=== PATIENT | male | born 1950 | race Caucasian/White ===

== ENCOUNTER 2024-03-13 14:49 | Inpatient (IN) | payer MEDICARE, OTHER, SELFPAY ==
[2024-03-13 13:10] VITALS: BP 132/96
[2024-03-13 13:11] VITALS: BP 132/96
[2024-03-13] MEDS: NSS 1000 IV ×2 (13:34→17:30)
[2024-03-13] MEDS: TYLENOL 650 MG PO (13:41)
[2024-03-13 13:42] LABS: % Basophils 0.3 % (0-2); % Eosinophils 0.6 % (0-6); % Immature Granulocytes 0.5 % (0-0.5); % Lymphocytes 7.1 % (20.5-51.1); % Monocytes 6.1 % (1.7-9.3); % Neutrophils 85.4 % (42.2-75.2); Absolute Basophils 0.1 10^3/uL (0-0.2); Absolute Eosinophils 0.1 10^3/uL (0-0.7); Absolute Immature Granulocytes 0.1 10^3/uL (0-0.05); Absolute Lymphocytes 1.2 10^3/uL (1.2-3.4); Absolute Monocytes 1.1 10^3/uL (0.1-0.6); Absolute Neutrophils 14.7 10^3/uL (1.4-6.5); Hematocrit 37.7 % (39.0-52.0); Hemoglobin 12.2 g/dL (13.0-18.0); Mean Corp Hgb Conc. 32.4 g/dL (33.0-37.0); Mean Corpuscular Hgb 26.7 pg (27.0-31.0); Mean Corpuscular Volume 82.5 fL (80.0-94.0); Mean Platelet Volume 9.5 fL (7.4-10.4); Nucleated Red Blood Cells % 0 % (-); Platelet Count 366 10^3/uL (130-400); Red Blood Cell Count 4.57 10^6/uL (4.70-6.10); Red Cell Dist. Width 15.2 % (11.5-14.5); White Blood Cell Count 17.2 10^3/uL (4.8-10.8)
[2024-03-13] MEDS: MAXIPIME 2000 MG IV (13:43)
[2024-03-13 13:54] LABS: INR 1.37; PT 16.7 Sec (11.4-14.6)
[2024-03-13 14:04] VITALS: BP 127/64
[2024-03-13 14:05] LABS: Lactic Acid 1.4 mmol/L (0.7-2.0)
[2024-03-13 14:09] LABS: ALT (SGPT) 14 U/L (0-50); AST (SGOT) 21 U/L (17-59); Albumin 3.8 g/dl (3.5-5.0); Alkaline Phosphatase 147 U/L (38-126); Blood Urea Nitrogen 22 mg/dl (9-20); Calcium 8.9 mg/dl (8.4-10.2); Carbon Dioxide 25 mmol/L (22-30); Chloride 100 mmol/L (98-107); Estimated Creatinine Clearance 83 ml/min; Glucose 115 mg/dl (70-99); Potassium 4.3 mmol/L (3.5-5.1); Sodium 137 mmol/L (135-145); Total Bilirubin 0.6 mg/dl (0.2-1.3); Total Protein 8.2 g/dl (6.3-8.2); eGFR > 60.00
--- NOTE | 2024-03-13 14:16 | ED.GENMED ---
History of Present Illness
General
Chief Complaint: Skin Problem
Time Seen by Provider: 03/13/24 13:18
History of Present Illness
History of Present Illness:
73-year-old male presents to the emergency department for evaluation of redness and discomfort to the left thigh for the past 2 days. Denies any traumatic injuries. Has known history of MRSA and complicated cellulitis of the left lower extremity.
Noted to be febrile on arrival. Denies any chest pain or shortness of breath
Past History
Past History
ED Past Medical History: Arrthythmia (afib on Eliquis), HTN and Other (neuropathy, Upper GI bleed, chronic LE edema)
ED Past Surgical History: Orthopedic (Bilateral knee replacements) and Other (gi bleed/operation )
Social History
Tobacco: Smoker
Personal: Single
Living: alone
Review of Systems
Review of Systems
Allergies reviewed?: Yes
All Other Systems: ROS reviewed and negative except as documented in HPI and ROS
Phy Exam
Physical Exam
Physical Exam:
GEN: Well appearing, NAD, WDWN
Eyes: PERRLA, EOMs intact, no scleral icterus
HENT: NCAT, oral mucosa moist
Lungs: CTAB, no wheezes, rales, rhonchi, normal chest wall excursion
Cardiac: RRR, no M/R/G, no peripheral edema. Radial pulses 2+ bilat
Neuro: AO x 3
MSK: No gross deformity or ecchymosis. No edema. No digital clubbing
Skin: Severe erythema and warmth to the left thigh, there is no pain with passive stretch of the left quad for passive flexion of the left knee, no knee joint effusion
Psych: Calm, cooperative, proper hygiene
Sepsis
Sepsis Screening
Sepsis Assessment: Sepsis
Sepsis Screen
Sepsis Screen: Sepsis
Date: 03/13/24
Time: 18:50
Course
Orders/Labs/Results
Orders:
Orders
03/13/24 13:23
Acetaminophen [Tylenol] 650 mg PO NOW STA
Cefepime HCl [Maxipime] 2,000 mg IV NOW STA
03/13/24 13:25
Electrocardiogram (*1) Urgent
Reason for Study: QTc Monitoring
EKG- Treatment ONCE
0.9% Sodium Chloride 1000 ml [Nss] 1,000 ml IV BOLUS
03/13/24 13:29
Complete Blood Count/With Diff Urgent
Comprehensive Metabolic Panel Urgent
Lactic Acid Q4H
Comment: CANCEL 2nd LACTIC ACID IF 1st LACTIC ACID IS LESS THAN 2
Prothrombin Time Urgent
Blood Culture Routine
CRISTÓBAL Source: Blood/Venous
Specimen Description:
Blood Culture Urgent
CRISTÓBAL Source: Blood/Venous
Specimen Description:
03/13/24 13:37
Sterile Water [Sterile Water For Injection] 10 ml .ROUTE .STK-MED ONE
03/13/24 14:35
Admit/Transfer Patient As Directed
Co-Sign Provider:
Level of Care: Inpatient admission
Assign to:: Medical/Surgical
Physician / Group: na
Diagnosis: cellulitis left thigh
Reason for Hospitalization: cellulitis left thigh
Expected length of stay greater than two midnights?: Yes
ELOS- Estimated Length of Stay in days: 2
I certify the patient meets the requirements for IP care: Yes
Code Status As Directed
Resuscitation Status: Do not resuscitate
Reached after discussion with pt or family/Healthcare POA: Yes
DNR Bracelet Application ONCE
PRN Pain Medication Management As Directed
May give lesser potent ordered pain med per pt: Yes
preference::
Protocol:: Medication orders for pain may be administered in a
manner that supports deferring to patient preference
when the pt is:
- Requesting an ordered lesser potent pain medication.
Least to most potent pain medications are defined
as: acetaminophen < NSAID < tramadol < opioids
(morphine, oxycodone, hydromorphone).
- Requesting a lesser dose of the same medication IF
ORDERED.
- Requesting a less intrusive route of administration
if both routes are prescribed by the provider (PO <
IV).
03/13/24 Dinner
Regular
At Your Request: Limited Participation
03/13/24 16:28
0.9% Sodium Chloride 1000 ml [Nss] 1,000 ml IV 100 mls/hr
Acetaminophen [Tylenol] 650 mg PO Q4HPRN PRN
03/13/24 16:28
WOUND/OSTOMY CONSULT Routine
Reason for Consult: left leg, toe
Activity As Directed
Activity Level: As Tolerated
Sequential Compression Device [Pneumatic Compression Sleeves] As Directed
Type: Knee high
Vital Signs As Directed
Frequency: Per unit guidelines
DX Deep Vein Thrombosis Video Routine
03/13/24 17:30
Lactic Acid Q4H
Comment: CANCEL 2nd LACTIC ACID IF 1st LACTIC ACID IS LESS THAN 2
03/13/24 20:00
Miconazole Nitrate [Antifungal Clear] See Dose Instructions TOPICAL BID
03/14/24 06:00
Complete Blood Count/With Diff IN AM
Comprehensive Metabolic Panel IN AM
Abnormal Lab Results
03/13/24
13:29
WBC 17.2 H 10^3/uL
(4.8-10.8)
RBC 4.57 L 10^6/uL
(4.70-6.10)
Hgb 12.2 L g/dL
(13.0-18.0)
Hct 37.7 L %
(39.0-52.0)
MCH 26.7 L pg
(27.0-31.0)
MCHC 32.4 L g/dL
(33.0-37.0)
RDW 15.2 H %
(11.5-14.5)
Abs Immat Gran (auto) 0.1 H 10^3/uL
(0-0.05)
Absolute Neuts (auto) 14.7 H 10^3/uL
(1.4-6.5)
Absolute Monos (auto) 1.1 H 10^3/uL
(0.1-0.6)
Neutrophils % 85.4 H %
(42.2-75.2)
Lymphocytes % 7.1 L %
(20.5-51.1)
PT 16.7 H Sec
(11.4-14.6)
BUN 22 H mg/dl
(9-20)
Glucose 115 H mg/dl
(70-99)
Alkaline Phosphatase 147 H U/L
(38-126)
03/13/24 13:29
03/13/24 13:29
Vital Signs
Initial and Last Documented VS:
Initial Vital Signs
BP
132/96
03/13/24 13:10
Last Documented Vital Signs
Temp Pulse Resp BP Pulse Ox
98 F 86 16 124/81 93
03/13/24 17:30 03/13/24 17:30 03/13/24 17:30 03/13/24 17:30 03/13/24 17:30
MDM/Problems Addressed
MDM/Problems Addressed:
Patient is anticoagulated thus do not see indication for ultrasound to evaluate for DVT. He is septic from lower extremity cellulitis thus will require admission for IV antibiotics
*Critical Care Note
Total Time (30-74mins, 75-104mins- exclusive of procedures): Not Applicable
ED Attending Note
-
Portions of this chart may have been created with voice recognition software.� Occasional wrong word or��sound alike� substitutions may have occurred due to the inherent limitations of voice recognition software.
Discharge Plan
Departure
Patient Disposition: Admit
Date of Disposition: 03/13/24
Time of Disposition: 14:20
Admit to: Med/Surg
Presentation/result/management discussed w/ accepting MD/DO: Hospitalist
Discharge Problem:
Cellulitis of left thigh, Sepsis
Interventions
Interventions:
*Risk Screen - Suicide Last Done: 03/13/24 13:17
*General Assessment Last Done: 03/13/24 13:17
*Neglect/Abuse Screening Last Done: 03/13/24 13:17
ED- Fall Risk Assessment Last Done: 03/13/24 13:23
*ED COVID-19 Vaccine History Last Done: 03/13/24 13:17
*Nursing Disposition Last Done: 03/13/24 16:27
ED-Skin Assessment Last Done: 03/13/24 16:26
Discharge Date and Time
Discharge Date/Time: 03/13/24 16:27
--- NOTE | 2024-03-13 14:42 | HPS.HSE ---
Family Physician
-
Family Physician: Anival Correia
Chief Complaint
-
left leg infection
History of Present Illness
73-year-old male past medical history of MRSA infection/complicated cellulitis of left lower extremity, atrial fibrillation on Eliquis, hypertension, neuropathy, upper GI bleeding, chronic lower extremity edema, presenting with redness and
discomfort of the left thigh for the past 2 days. He denies pain with area sensitive. He denies any injury but thinks that he had a dirty towel on his leg which may have contributed to the infection. He denies any chills. He denies any nausea
vomiting or diarrhea or chest pain or shortness of breath.
He had a prior MRSA infection of the left lower extremity was previously debrided.
He does have some redness in the space between his left big toe and second toe which was thought to been a fungal infection apparently getting better with dressing.
Denies smoking or alcohol use.
Medical History
Past Medical History
Past Medical History: Reports Other (MRSA infection/complicated cellulitis of left lower extremity, atrial fibrillation on Eliquis, hypertension, neuropathy, upper GI bleeding, chronic lower extremity edema)
Past Surgical History: Reports Other (Orthopedic (Bilateral knee replacements) and Other (gi bleed/operation ))
Social History
Tobacco: Non-smoker
Alcohol: None
Drug: None
Family History
Family History: Not pertinent
Allergies / Home Medications
Allergies reflects when Allergies were last updated in [employer].
Home Medications with original date entered in [employer]
Allergy/Medication List:
Allergies
Allergy/AdvReac Type Severity Reaction Status Date / Time
No Known Allergies Allergy Verified 11/19/22 12:59
Home Medications
escitalopram oxalate 20 mg tablet 20 mg PO DAILY Depression 11/14/14
apixaban 5 mg tablet (Eliquis) 5 mg PO BID Blood clot prevention/tx 06/28/21
acetaminophen 325 mg tablet 650 mg PO Q4H PRN mild pain/temp>100 09/15/22
docusate sodium 100 mg capsule 200 mg PO DAILY Constipation 09/15/22
gabapentin 800 mg tablet 800 mg PO TID Pain 09/15/22
oxycodone 15 mg tablet 15 mg PO DAILY severe pain 09/15/22
oxycodone 15 mg tablet 15 mg PO Q4H PRN severe pain 09/15/22
sennosides 8.6 mg tablet (senna) 2 tab PO DAILY Constipation 09/15/22
amoxicillin 500 mg capsule 500 mg PO TID Infection 11/19/22
clindamycin HCl 150 mg capsule 150 mg PO QID #30 caps 11/19/22
mineral oil-hydrophil petrolat topical ointment (Aquaphor topical ointment) 1 applic topical TID B/L lower legs 11/19/22
morphine 60 mg tablet,extended release 60 mg PO BID Pain 11/19/22
quetiapine 50 mg tablet 50 mg PO DAILY Mental Health/Anxiety 11/19/22
Review of Systems
-
History Source: Patient
A 12 point ROS was completed and negative except as noted: Yes
Constitutional: Reports No Symptoms
EENT: Reports No Symptoms
Respiratory: Reports No Symptoms
Cardiac: Reports No Symptoms
Abdomen/GI: Reports No Symptoms
: Reports No Symptoms
Musculoskeletal: Reports No Symptoms
Skin: Reports See HPI and Other
Neurological: Reports No Symptoms
Endocrine: Reports No Symptoms
Hematologic/Lymphatic: Reports No Symptoms
Psych: Reports No Symptoms
Physical Exam
Vital Signs
Vital Signs
Temp Pulse Resp BP Pulse Ox
100.9 F H 79 26 127/64 98
03/13/24 13:11 03/13/24 14:04 03/13/24 13:15 03/13/24 14:04 03/13/24 13:15
Physical Exam
General: Well Developed, Well Nourished and No Apparent Distress
HEENT: NormoCephalic, Moist mucous membranes and Atraumatic
Respiratory: Clear
Cardiac: S1/S2 and Regular Rhythm; No Murmur or Rub
GI: Soft, Non Tender, Non Distended and Normal Bowel Sounds; No Organomegaly
Rectal: Deferred by Provider
Musculoskeletal: No Clubbing, No Cyanosis and No Edema
Skin: Other (left thigh erythema ); No Rash
Neuro: Nonfocal/grossly intact
Laboratory Results
-
03/13/24 13:29
03/13/24 13:29
Laboratory Results
PT 16.7 Sec (11.4-14.6) H 03/13/24 13:29
INR 1.37 03/13/24 13:29
Lactic Acid 1.4 mmol/L (0.7-2.0) 03/13/24 13:
Total Bilirubin 0.6 mg/dl (0.2-1.3) 03/13/24 13:29
AST 21 U/L (17-59) 03/13/24 13:29
ALT 14 U/L (0-50) 03/13/24 13:29
Alkaline Phosphatase 147 U/L (38-126) H 03/13/24 13:29
Data Reviewed
-
Lab Data: Labs Reviewed by me
Old Records: Reviewed
Impression/Plan
-
IMPRESSION:
PLAN:
# Sepsis (fever, leukocytosis, tachypnea) secondary to left lower extremity cellulitis
# History of MRSA cellulitis of left lower extremity
-Blood cultures
-IV fluids
-Vancomycin
# Chronic left lower extremity wound with history of prior debridement
-Appears baseline as per patient
-Wound care consulted
# Fungal infection between first and second toes left foot
-Likely fungal
-Topical miconazole
Permanent atrial fibrillation
-Patient in A-fib currently
-Continue Eliquis
Essential hypertension
Chronic pain syndrome
-Continue gabapentin, Profen, oxycodone,
Anxiety/depression
-Continue Seroquel, Lexapro
Chronic lower extremity wounds
History of GI bleeding
DNR/DNI
DVT prophylaxis�Eliquis
Regular diet
[2024-03-13 16:00] VITALS: BP 115/72
[2024-03-13 17:30] VITALS: BP 124/81
[2024-03-13] MEDS: VANCOCIN 540 MG IV (17:30)
--- NOTE | 2024-03-13 17:46 | PHA.VAN.IN ---
Assessment
- Assessment
Renal Function: Appears elevated from baseline (11/19/22 BASELINE SCR: 0.7)
Concomitant Antimicrobials: NONE
- Previous Dosing Experience
Previous Regimen: 1250MG IV Q12H
Date of Regimen: 09/16/22
Provided Trough of: 12.7 PREDICTED
Provided AUC of: 490 PREDICTED
Patient's SCR is: Elevated compared to previous dosing experience (09/16/22 SCR = 0.8)
Patient's weight is: Elevated compared to previous dosing experience (09/16/22 WT = 94.4 KG)
AUC Dosing Plan
- Dosing Variables
Dosing Weight (kg): 103
Dosing CrCl (ml/min): 83
Vd coefficient (L/kg): 0.6
- Empiric Dosing
Initial / Loading Dose: 2GM
Maintenance Regimen: 1250MG IV Q12H
Estimated AUC (mcg*h/mL): 582
Estimated Peak (mcg*h/mL): 34.6
Estimated Trough (mcg/ml): 16
Estimated Half Life (H): 9.5
Pharmacokinetics Vancomycin I
- -
Patient Age: 73
Patient Sex: Male
Vancomycin Day #: 1
Indication: Skin And Soft Tissue (SEPSIS)
Requesting Provider: BHAVYA
Height / Weight:
Height 6 ft 1 in
Actual Weight 103 kg
- Vital Signs / Lab Results
Temp Pulse Resp BP Pulse Ox
100.9 F H 80 26 115/72 98
03/13/24 13:11 03/13/24 16:00 03/13/24 13:15 03/13/24 16:00 03/13/24 13:15
Lab Results - Hematology
03/13/24
13:29
WBC 17.2 H
Lab Results - Chemistry
03/13/24
13:29
BUN 22 H
Creatinine 0.9
Estimated Creat Clear 83
Albumin 3.8
03/13/24
13:29
Lactic Acid 1.4
[2024-03-13 18:34] VITALS: BMI 30.6
[2024-03-13] MEDS: NEURONTIN 800 MG PO (20:20)
[2024-03-13] MEDS: DESYREL 25 MG PO (20:21)
[2024-03-13] MEDS: ELIQUIS 5 MG PO (20:21)
[2024-03-13] MEDS: MS CONTIN (EXTENDED RELEASE) 30 MG PO (20:22)
[2024-03-13] MEDS: ANTIFUNGAL CLEAR 1 APPLIC TOPICAL (20:23)
[2024-03-13 23:11] VITALS: BP 115/70
[2024-03-14] MEDS: NSS 1000 IV (04:18)
[2024-03-14] MEDS: VANCOCIN 275 MG IV (05:12)
[2024-03-14 07:10] VITALS: BP 124/73
[2024-03-14 07:46] LABS: % Basophils 0.2 % (0-2); % Eosinophils 1.6 % (0-6); % Immature Granulocytes 0.5 % (0-0.5); % Lymphocytes 10.7 % (20.5-51.1); % Monocytes 9.9 % (1.7-9.3); % Neutrophils 77.1 % (42.2-75.2); Absolute Eosinophils 0.2 10^3/uL (0-0.7); Absolute Immature Granulocytes 0.1 10^3/uL (0-0.05); Absolute Lymphocytes 1.4 10^3/uL (1.2-3.4); Absolute Monocytes 1.3 10^3/uL (0.1-0.6); Absolute Neutrophils 9.8 10^3/uL (1.4-6.5); Hematocrit 34.1 % (39.0-52.0); Hemoglobin 10.8 g/dL (13.0-18.0); Mean Corp Hgb Conc. 31.7 g/dL (33.0-37.0); Mean Corpuscular Hgb 26.3 pg (27.0-31.0); Mean Corpuscular Volume 83.2 fL (80.0-94.0); Mean Platelet Volume 9.6 fL (7.4-10.4); Nucleated Red Blood Cells % 0 % (-); Platelet Count 308 10^3/uL (130-400); Red Cell Dist. Width 15.1 % (11.5-14.5); White Blood Cell Count 12.7 10^3/uL (4.8-10.8)
[2024-03-14 08:18] LABS: ALT (SGPT) 15 U/L (0-50); AST (SGOT) 24 U/L (17-59); Albumin 2.9 g/dl (3.5-5.0); Alkaline Phosphatase 121 U/L (38-126); Blood Urea Nitrogen 16 mg/dl (9-20); Calcium 8.5 mg/dl (8.4-10.2); Carbon Dioxide 24 mmol/L (22-30); Chloride 105 mmol/L (98-107); Estimated Creatinine Clearance 93 ml/min; Glucose 107 mg/dl (70-99); Potassium 4.5 mmol/L (3.5-5.1); Sodium 139 mmol/L (135-145); Total Bilirubin 0.2 mg/dl (0.2-1.3); Total Protein 6.5 g/dl (6.3-8.2); eGFR > 60.00
[2024-03-14] MEDS: ANTIFUNGAL CLEAR TOPICAL (09:00)
[2024-03-14] MEDS: LEXAPRO 20 MG PO (09:20)
[2024-03-14] MEDS: ELIQUIS 5 MG PO ×2 (09:20→20:06)
[2024-03-14] MEDS: MS CONTIN (EXTENDED RELEASE) 30 MG PO ×2 (09:21→20:06)
[2024-03-14] MEDS: NEURONTIN 800 MG PO ×3 (09:21→20:07)
[2024-03-14] MEDS: ROXICODONE 10 MG PO (09:21)
--- NOTE | 2024-03-14 09:54 | W.PN.HOSP.TC ---
Today's Communication/Plan
-
see outlined plan
Assessment / Plan
Assessment / Plan
Assessment:
Sepsis POA (fever, leukocytosis)
L thigh cellulitis, severe
- reported hx of MRSA, although patient denies, no prior MRSA cultures from wounds/leg (noted MSSA)
- follow cultures, MRSA swab
- continue Vancomycin, requires intensive monitoring of levels
- add Ancef
- ID consulted
- s/p sepsis protocol IVF, cap further IVF
Chronic left lower extremity wounds with history of prior debridement - all present on arrival
- wound care service consulted
Fungal infection between first and second toes left foot
- Likely fungal
- Topical miconazole continues
Permanent atrial fibrillation
- Patient in A-fib currently
- Continue Eliquis
Essential hypertension by history
- normotensive here, will monitor. Patient not on any meds
Chronic pain syndrome
- continue gabapentin, Profen, oxycodone
Anxiety/depression
- continue Seroquel, Lexapro
History of GI bleeding
DVT ppx: Eliquis
Code: DNR/DNI
Anticipated Discharge: > 48 hours
Subjective/Interval History
-
Date of Service: March 14, 2024
admitted for L thigh Cellulitis
reports some discomfort, swelling. No fever/chills
Objective Data
-
Labs:
Laboratory Results
03/14/24
06:49
WBC 12.7 H
Hgb 10.8 L
Hct 34.1 L
Plt Count 308
Sodium 139
Potassium 4.5
Chloride 105
Carbon Dioxide 24
BUN 16
Creatinine 0.9
Glucose 107 H
Calcium 8.5
Total Bilirubin 0.2
AST 24
ALT 15
Alkaline Phosphatase 121
Vital Signs:
Vital Signs
Temp Pulse Resp BP Pulse Ox
98.7 F 70 20 124/73 98
03/14/24 07:10 03/14/24 07:10 03/14/24 07:10 03/14/24 07:10 03/14/24 07:10
I&O
03/13/24 03/14/24 03/15/24
06:59 06:59 06:59
Intake Total 1924
Output Total 150 / 150
Balance 1774
Physical Exam
-
General: No Apparent Distress and Appears Chronically Ill
HEENT: Normocephalic and Atraumatic
Respiratory: Negative Wheezes
Cardiac: Regular Rhythm and S1/S2
GI: Soft
Genito-urinary: No Costovertebral Tender
Musculoskeletal: Other (L thigh cellulitis with edema, confluent from just below groin to knee, medial and lateral thigh, no crusting)
Neuro: AO x 3
Hematologic / Lymphatic: No Lymphadenopathy
Psych: Calm
Data Reviewed
-
Total Time Spent with Patient (in minutes): 51
Labs: Labs Reviewed by me
--- NOTE | 2024-03-14 10:14 | PHA.VAN.FU ---
Vancomycin Assessment / Plan
- Assessment
Renal Function: Stable
WBC's are: Trending Down
Concomitant Antimicrobials: cefazolin
- Dosing Plan
Continue: Vanc 1250mg Q12H
- Monitoring Plan
No level(s) ordered at this time: consider levels in next few days
- Follow Up
Pharmacy will continue to follow.
Vancomycin Follow UP
- -
Patient Age: 73
Patient Sex: Male
Vancomycin Day #: 2
Indication: Skin And Soft Tissue
Requesting Provider: Dr. Stafford
Pertinent Antimicrobial Allergies:
NKDA
Height / Weight:
Height 6 ft 1 in
Actual Weight 105.233 kg
Pertinent Past Medical History: BMI ~30
- Vital Signs / Lab Results
Temp Pulse Resp BP Pulse Ox
98.7 F 70 20 124/73 98
03/14/24 07:10 03/14/24 07:10 03/14/24 07:10 03/14/24 07:10 03/14/24 07:10
Lab Results - Hematology
03/13/24 03/14/24
13:29 06:49
WBC 17.2 H 12.7 H
Lab Results - Chemistry
03/13/24 03/14/24
13:29 06:49
BUN 22 H 16
Creatinine 0.9 0.9
Estimated Creat Clear 83 93
Albumin 3.8 2.9 L
03/13/24 03/13/24
13:29 17:30
Lactic Acid 1.4 Cancelled
--- NOTE | 2024-03-14 10:39 | WOUNDNOTE ---
L LATERAL POSTERIOR LOWER LEG
--- NOTE | 2024-03-14 10:41 | WOUNDNOTE ---
L TOES AND ANTERIOR ANKLE
--- NOTE | 2024-03-14 10:41 | WOUNDNOTE ---
Ananth DEL ROSARIO
--- NOTE | 2024-03-14 10:44 | WOUNDNOTE ---
L THIGH AND KNEES
--- NOTE | 2024-03-14 10:45 | WOUNDNOTE ---
WON RN note: Patient admitted with cellulitis of L thigh/sepsis.
See H&P for complete history. Currently at [facility].
PMH: venous ulcers on legs, smoker, HTN,A Fib, spinal stenosis, neuropathy in hands, laminectomy, b/l knee replacements with R knee revision 2014, went to [facility] for non healing leg wound. Last [facility] visit with Dr. Alves 04/25/21. Has not been
back to [facility] since last visit.
Wound Location and type/assessment: Patient known to service, last seen 06/30/21 for venous leg ulcers and dry eschar on toes. L Leg with healing venous ulcer, B/L great toe intact dry scabs. R knee with intact scab abrasion. L dorsal 2nd toe
blanchable pink, previous admission had thin dry eschar there, now healed. Does not appear to be fungal related, fungal cream already on order. Assessed patient along with Dr. Doherty. L upper thigh with blotchy redness and warmth. Heels are intact, +
palpable pedal pulses and skin very dry. L dorsal foot red maroon ning suspect abrasion. Patient turned self to side, sacrum intact, scarring visible from past healed ulcers. Patient confirmed he has a cushion for wheelchair.
Appetite: Good.
Pressure redistribution devices in place: On [employer], able to turn self, encouraged turning to patient, currently on L semi side lying position. Pillow under calves.
Plan: Applied Vaseline ointment to legs and feet, skin prep to scabs on toes. Will discontinue fungal cream and order mineral oil to start tomorrow. Local wound care to L posterior leg, will order Vashe wtd and knee high Abhay wrap. Padded red ning on
dorsal ankle with ABD pad under abhay. leg elevation when oob. Wound care and compression approved by Dr. Doherty. Updated nurse Rola and care plan, will follow as needed.
Note to case management of equipment requested for discharge: VN for wound care.
Recommend follow up at wound care center upon discharge.
--- NOTE | 2024-03-14 10:46 | WOUNDNOTE ---
WON RN note: Patient admitted with cellulitis of L thigh/sepsis.
See H&P for complete history. Currently at [facility].
PMH: venous ulcers on legs, smoker, HTN,A Fib, spinal stenosis, neuropathy in hands, laminectomy, b/l knee replacements with R knee revision 2014, went to [facility] for non healing leg wound. Last [facility] visit with Dr. Alves 04/25/21. Has not been
back to [facility] since last visit.
Wound Location and type/assessment: Patient known to service, last seen 06/30/21 for venous leg ulcers and dry eschar on toes. L Leg with healing venous ulcer, B/L great toe intact dry scabs. R knee with intact scab abrasion. L dorsal 2nd toe
blanchable pink, previous admission had thin dry eschar there, now healed. Does not appear to be fungal related, fungal cream already on order. Assessed patient along with Dr. Doherty. L upper thigh with blotchy redness and warmth. Heels are intact, +
palpable pedal pulses and skin very dry. L dorsal foot red maroon ning suspect abrasion. Patient turned self to side, sacrum intact, scarring visible from past healed ulcers. Patient confirmed he has a cushion for wheelchair.
Appetite: Good.
Pressure redistribution devices in place: On [facility] air, able to turn self, encouraged turning to patient, currently on L semi side lying position. Pillow under calves.
Plan: Applied Vaseline ointment to legs and feet, skin prep to scabs on toes. Will discontinue fungal cream and order mineral oil to start tomorrow. Local wound care to L posterior leg, will order Vashe wtd and knee high Abhay wrap. Padded red ning on
dorsal ankle with ABD pad under abhay. leg elevation when oob. Wound care and compression approved by Dr. Doherty. Updated nurse Rola and care plan, will follow as needed.
Note to case management of equipment requested for discharge: VN for wound care.
Recommend follow up at wound care center upon discharge.
--- NOTE | 2024-03-14 11:56 | CM ---
Patient seen bedside, initial assessment completed. Patient LTC resident at [facility], reports he uses a wheelchair or walker for ambulation. Patient reports he does receive therapy at facility. Patient confirms PCP Anival Correia, pharmacy
[facility]. CM spoke with Elisa from Admissions at [facility], confirmed patient is LTC resident on an MA bed hold.
Plan; return to [facility] when stable.
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
[2024-03-14] MEDS: ANCEF 5 IV (12:10)
[2024-03-14 15:37] VITALS: BP 105/62
[2024-03-14] MEDS: ANCEF 10 IV (20:06)
[2024-03-14] MEDS: DESYREL 25 MG PO (20:07)
[2024-03-14] MEDS: ZOFRAN 4 MG IV (20:53)
[2024-03-14 23:33] VITALS: BP 137/91
[2024-03-15] MEDS: ANCEF 10 IV ×3 (02:59→19:43)
[2024-03-15] MEDS: ZOFRAN 4 MG IV (03:31)
[2024-03-15 04:05] LABS: % Basophils 0.5 % (0-2); % Eosinophils 4.6 % (0-6); % Lymphocytes 18.4 % (20.5-51.1); % Monocytes 12.8 % (1.7-9.3); % Neutrophils 62.7 % (42.2-75.2); Absolute Eosinophils 0.4 10^3/uL (0-0.7); Absolute Immature Granulocytes 0.1 10^3/uL (0-0.05); Absolute Lymphocytes 1.5 10^3/uL (1.2-3.4); Absolute Monocytes 1.1 10^3/uL (0.1-0.6); Absolute Neutrophils 5.2 10^3/uL (1.4-6.5); Hematocrit 33.6 % (39.0-52.0); Hemoglobin 10.8 g/dL (13.0-18.0); Mean Corp Hgb Conc. 32.1 g/dL (33.0-37.0); Mean Corpuscular Hgb 26.3 pg (27.0-31.0); Mean Platelet Volume 9.6 fL (7.4-10.4); Nucleated Red Blood Cells % 0 % (-); Platelet Count 348 10^3/uL (130-400); Red Cell Dist. Width 15.1 % (11.5-14.5); White Blood Cell Count 8.3 10^3/uL (4.8-10.8)
[2024-03-15 04:13] LABS: Blood Urea Nitrogen 19 mg/dl (9-20); Calcium 8.8 mg/dl (8.4-10.2); Carbon Dioxide 23 mmol/L (22-30); Chloride 109 mmol/L (98-107); Estimated Creatinine Clearance 120 ml/min; Glucose 118 mg/dl (70-99); Potassium 4.7 mmol/L (3.5-5.1); Sodium 143 mmol/L (135-145); eGFR > 60.00
[2024-03-15 07:10] VITALS: BP 148/80
--- NOTE | 2024-03-15 08:34 | W.PN.HOSP.TC ---
Today's Communication/Plan
-
continue IV Ancef; follow ID recs
Assessment / Plan
Assessment / Plan
Assessment:
Sepsis POA (fever, leukocytosis)
L thigh cellulitis, severe
- reported hx of MRSA, although patient denies, no prior MRSA cultures from wounds/leg (noted MSSA)
- MRSA negative
- BCX NGTD
- ID following; continue Ancef
Chronic left lower extremity wounds with history of prior debridement - all present on arrival
- L Leg with healing venous ulcer, B/L great toe intact dry scabs. R knee with intact scab abrasion. L dorsal 2nd toe blanchable pink. L dorsal foot red maroon ning suspect abrasion
- wound care service following
Fungal infection between first and second toes left foot
- Likely fungal
- Topical miconazole continues
Permanent atrial fibrillation
- Patient in A-fib currently
- Continue Eliquis
Essential hypertension by history
- normotensive here, will monitor. Patient not on any meds
Chronic pain syndrome
- continue gabapentin, Profen, oxycodone
Anxiety/depression
- continue Seroquel, Lexapro
History of GI bleeding
DVT ppx: Eliquis
Code: DNR/DNI
Anticipated Discharge: 24 - 48 hours
Subjective/Interval History
-
Date of Service: March 15, 2024
no complaints
reports less pain, swelling to L thigh and he feels redness improving
Objective Data
-
Labs:
Laboratory Results
03/15/24
03:31
WBC 8.3
Hgb 10.8 L
Hct 33.6 L
Plt Count 348
Sodium 143
Potassium 4.7
Chloride 109 H
Carbon Dioxide 23
BUN 19
Creatinine 0.7
Glucose 118 H
Calcium 8.8
Vital Signs:
Vital Signs
Temp Pulse Resp BP Pulse Ox
97.4 F 67 18 148/80 93
03/15/24 07:10 03/15/24 07:10 03/15/24 07:10 03/15/24 07:10 03/15/24 07:10
I&O
03/14/24 03/15/24 03/16/24
06:59 06:59 06:59
Intake Total 5 / 1924 840 / 840
Output Total 150 / 150 1150 / 1150
Balance 1775 / 1775 -310 / -310
Physical Exam
-
General: No Apparent Distress
HEENT: Normocephalic and Atraumatic
Respiratory: Negative Wheezes
Cardiac: Regular Rhythm and S1/S2
GI: Soft
Musculoskeletal: Other (Left thigh with erythema irregular border from distal thigh extending up to hip, mildy warm. bilateral LE venous insufficiency)
Neuro: AO x 3
Hematologic / Lymphatic: No Lymphadenopathy
Psych: Calm
Data Reviewed
-
Total Time Spent with Patient (in minutes): 41
Labs: Labs Reviewed by me
[2024-03-15] MEDS: NEURONTIN 800 MG PO ×3 (10:07→19:44)
[2024-03-15] MEDS: ROXICODONE 10 MG PO ×2 (10:08→18:07)
[2024-03-15] MEDS: LEXAPRO 20 MG PO (10:08)
[2024-03-15] MEDS: MS CONTIN (EXTENDED RELEASE) 30 MG PO ×2 (10:08→19:43)
[2024-03-15] MEDS: ELIQUIS 5 MG PO ×2 (10:08→19:43)
--- NOTE | 2024-03-15 11:54 | CM ---
CM reviewed chart, met with patient bedside. Patient reports no needs at this time, reports he is eager to discharge from Hospital. CM will continue to follow for all discharge planning needs.
Plan; return to [facility] when stable
[facility]
Report: [phone]
--- NOTE | 2024-03-15 14:15 | W.PN.ID1 ---
Date of Service
Date of Service: March 15, 2024
Today's Communication
Continue cefazolin.
Assessment / Plan
# Acute left thigh cellulitis
-Continue cefazolin dose to 2g IV q8 (d2)
# Fever/leukocytosis due to cellulitis, resolved
- Bcx's NGTD
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
Hypertension
Neuropathy
Atrial fibrillation
History of upper GI bleed
Venous stasis
Hx LLE wounds
Spinal stenosis
Chronic pain
Anxiety/depression
History of MSSA left leg wound infection
History of MSSA left olecranon bursitis (2009) s/p I+D
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
L TKA
Chief Complaint
-: Cellulitis
Subjective / Review of Systems
He thinks thigh is better.
Vital Signs / Physical Exam
Vital Signs
Vital Signs
Temp Pulse Resp BP Pulse Ox
97.4 F 67 18 148/80 93
03/15/24 07:10 03/15/24 07:10 03/15/24 07:10 03/15/24 07:10 03/15/24 07:10
Physical Exam
Constitutional: No Acute Distress
Extremities: Erythema (Left thigh to hip erythema receding)
Objective Data
Lab Data
Lab Results
03/15/24 03:31
03/15/24 03:31
PT 16.7 Sec (11.4-14.6) H 03/13/24 13:29
INR 1.37 03/13/24 13:29
Estimated Creat Clear 120 ml/min 03/15/24 03:31
Lactic Acid Cancelled 03/13/24 17:30
Total Bilirubin 0.2 mg/dl (0.2-1.3) 03/14/24 06:49
AST 24 U/L (17-59) 03/14/24 06:49
ALT 15 U/L (0-50) 03/14/24 06:49
Alkaline Phosphatase 121 U/L (38-126) 03/14/24 06:49
Most recent labs reviewed.
Micro Results:
03/13/24 13:29 Blood Culture - Preliminary
Blood/Venous No Growth in 48 hours- Final report to follow
03/13/24 13:29 Blood Culture - Preliminary
Blood/Venous No Growth in 48 hours- Final report to follow
03/13/24 19:22 MRSA Screen - Final
Nose No Methicillin Resistant Staphylococcus aureus isolated.
[2024-03-15 15:28] VITALS: BP 115/76
[2024-03-15] MEDS: HYDROPHOR 1 APPLIC TOPICAL (17:25)
[2024-03-15] MEDS: DESYREL 25 MG PO (19:43)
[2024-03-15] MEDS: TYLENOL 650 MG PO (21:40)
[2024-03-15 22:53] VITALS: BP 115/74
[2024-03-16] MEDS: ANCEF 10 IV ×3 (03:00→20:40)
[2024-03-16 07:51] LABS: % Immature Granulocytes 1.4 % (0-0.5); % Lymphocytes 21.9 % (20.5-51.1); % Neutrophils 54.7 % (42.2-75.2); Absolute Basophils 0.1 10^3/uL (0-0.2); Absolute Eosinophils 0.6 10^3/uL (0-0.7); Absolute Immature Granulocytes 0.1 10^3/uL (0-0.05); Absolute Lymphocytes 1.6 10^3/uL (1.2-3.4); Hematocrit 34.9 % (39.0-52.0); Hemoglobin 10.9 g/dL (13.0-18.0); Mean Corp Hgb Conc. 31.2 g/dL (33.0-37.0); Mean Corpuscular Hgb 26.8 pg (27.0-31.0); Mean Corpuscular Volume 85.7 fL (80.0-94.0); Mean Platelet Volume 9.5 fL (7.4-10.4); Nucleated Red Blood Cells % 0 % (-); Platelet Count 319 10^3/uL (130-400); Red Blood Cell Count 4.07 10^6/uL (4.70-6.10); Red Cell Dist. Width 15.2 % (11.5-14.5); White Blood Cell Count 7.4 10^3/uL (4.8-10.8)
[2024-03-16 08:06] VITALS: BP 123/70
[2024-03-16 08:23] LABS: Blood Urea Nitrogen 21 mg/dl (9-20); Calcium 8.8 mg/dl (8.4-10.2); Carbon Dioxide 24 mmol/L (22-30); Chloride 106 mmol/L (98-107); Estimated Creatinine Clearance 105 ml/min; Glucose 100 mg/dl (70-99); Potassium 4.8 mmol/L (3.5-5.1); Sodium 140 mmol/L (135-145); eGFR > 60.00
[2024-03-16 08:25] VITALS: BMI 30.6
[2024-03-16] MEDS: MS CONTIN (EXTENDED RELEASE) 30 MG PO ×2 (08:25→20:41)
[2024-03-16] MEDS: ROXICODONE 10 MG PO ×2 (08:26→16:00)
[2024-03-16] MEDS: NEURONTIN 800 MG PO ×3 (08:26→20:51)
[2024-03-16] MEDS: ELIQUIS 5 MG PO ×2 (08:26→20:41)
[2024-03-16] MEDS: LEXAPRO 20 MG PO (08:26)
[2024-03-16] MEDS: HYDROPHOR 1 APPLIC TOPICAL (08:28)
--- NOTE | 2024-03-16 12:48 | W.PN.HOSP.TC ---
Today's Communication/Plan
-
continue IV Ancef, follow ID recs. Likely DC in 24 hours back to SNF on oral Abx.
Assessment / Plan
Assessment / Plan
Assessment:
Sepsis POA (fever, leukocytosis)
L thigh cellulitis, severe
- reported hx of MRSA, although patient denies, no prior MRSA cultures from wounds/leg (noted MSSA)
- MRSA negative
- BCX NGTD
- ID following; continue Ancef
Chronic left lower extremity wounds with history of prior debridement - all present on arrival
- L Leg with healing venous ulcer, B/L great toe intact dry scabs. R knee with intact scab abrasion. L dorsal 2nd toe blanchable pink. L dorsal foot red maroon ning suspect abrasion
- wound care service following
Fungal infection between first and second toes left foot
- Likely fungal
- Topical miconazole continues
Permanent atrial fibrillation
- Patient in A-fib currently
- Continue Eliquis
Essential hypertension by history
- normotensive here, will monitor. Patient not on any meds
Chronic pain syndrome
- continue gabapentin, Profen, oxycodone
Anxiety/depression
- continue Seroquel, Lexapro
History of GI bleeding
DVT ppx: Eliquis
Code: DNR/DNI
Anticipated Discharge: Within 24 hours
Subjective/Interval History
-
Date of Service: March 16, 2024
denies any new complaints
continues to feel improved, less pain/edema
Objective Data
-
Labs:
Laboratory Results
03/16/24
06:45
WBC 7.4
Hgb 10.9 L
Hct 34.9 L
Plt Count 319
Sodium 140
Potassium 4.8
Chloride 106
Carbon Dioxide 24
BUN 21 H
Creatinine 0.8
Glucose 100 H
Calcium 8.8
Vital Signs:
Vital Signs
Temp Pulse Resp BP Pulse Ox
97.4 F 55 16 123/70 94
03/16/24 08:06 03/16/24 08:06 03/16/24 08:06 03/16/24 08:06 03/16/24 08:06
I&O
03/15/24 03/16/24 03/17/24
06:59 06:59 06:59
Intake Total 840 / 840 1200 / 1200
Output Total 1150 / 1150 750 / 750
Balance -310 / -310 450 / 450
Physical Exam
-
General: No Apparent Distress
HEENT: Normocephalic and Atraumatic
Respiratory: Clear to Auscultation; Negative Wheezes
Cardiac: Regular Rhythm and S1/S2
GI: Soft
Musculoskeletal: Other (Left thigh with erythema (improving) irregular border from distal thigh extending up to hip, mildy warm. bilateral LE venous insufficiency)
Neuro: AO x 3
Hematologic / Lymphatic: No Lymphadenopathy
Psych: Calm
Data Reviewed
-
Total Time Spent with Patient (in minutes): 42
Labs: Labs Reviewed by me
--- NOTE | 2024-03-16 14:59 | CM ---
CM reviewed chart, per Hospitalist, likely discharge tomorrow. CM will send updates in [facility] to facility. CM will continue to be available for all discharge planning needs.
Plan; return to [facility]
Report: [phone]
--- NOTE | 2024-03-16 15:45 | W.PN.ID1 ---
Date of Service
Date of Service: March 16, 2024
Today's Communication
-Tomorrow, can transition to cephalexin 1000mg po q8h through 03/23/24.
Assessment / Plan
# Acute left thigh cellulitis, improving
-Continue cefazolin dose to 2g IV q8 (d3)
-Tomorrow, can transition to cephalexin 1000mg po q8h through 03/23/24.
# Fever/leukocytosis due to cellulitis, resolved
- Bcx's NGTD
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
Hypertension
Neuropathy
Atrial fibrillation
History of upper GI bleed
Venous stasis
Hx LLE wounds
Spinal stenosis
Chronic pain
Anxiety/depression
History of MSSA left leg wound infection
History of MSSA left olecranon bursitis (2009) s/p I+D
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
L TKA
Chief Complaint
-: Cellulitis
Subjective / Review of Systems
Feeling better.
Vital Signs / Physical Exam
Vital Signs
Vital Signs
Temp Pulse Resp BP Pulse Ox
97.4 F 55 16 123/70 99
03/16/24 08:06 03/16/24 08:06 03/16/24 08:06 03/16/24 08:06 03/16/24 08:25
Physical Exam
Constitutional: No Acute Distress and Comfortable
Extremities: Pulses (left thigh erythema decreasing in intensity and size)
Objective Data
Lab Data
Lab Results
03/16/24 06:45
03/16/24 06:45
PT 16.7 Sec (11.4-14.6) H 03/13/24 13:29
INR 1.37 03/13/24 13:29
Estimated Creat Clear 105 ml/min 03/16/24 06:45
Lactic Acid Cancelled 03/13/24 17:30
Total Bilirubin 0.2 mg/dl (0.2-1.3) 03/14/24 06:49
AST 24 U/L (17-59) 03/14/24 06:49
ALT 15 U/L (0-50) 03/14/24 06:49
Alkaline Phosphatase 121 U/L (38-126) 03/14/24 06:49
Most recent labs reviewed.
Micro Results:
03/13/24 13:29 Blood Culture - Preliminary
Blood/Venous No Growth in 72 hours- Final report to follow
03/13/24 13:29 Blood Culture - Preliminary
Blood/Venous No Growth in 72 hours- Final report to follow
03/13/24 19:22 MRSA Screen - Final
Nose No Methicillin Resistant Staphylococcus aureus isolated.
Care Review
Plan reviewed with: Physician (Dr. Doherty)
[2024-03-16 16:08] VITALS: BP 107/63
[2024-03-16] MEDS: DESYREL 25 MG PO (20:41)
[2024-03-16] MEDS: TYLENOL 650 MG PO (22:22)
[2024-03-16 23:20] VITALS: BP 120/75
[2024-03-17] MEDS: ANCEF 10 IV (03:21)
[2024-03-17 07:00] VITALS: BP 137/67
[2024-03-17 07:34] LABS: % Basophils 1.1 % (0-2); % Eosinophils 7.6 % (0-6); % Immature Granulocytes 2.8 % (0-0.5); % Lymphocytes 25.6 % (20.5-51.1); % Monocytes 12.3 % (1.7-9.3); % Neutrophils 50.6 % (42.2-75.2); Absolute Basophils 0.1 10^3/uL (0-0.2); Absolute Eosinophils 0.6 10^3/uL (0-0.7); Absolute Immature Granulocytes 0.2 10^3/uL (0-0.05); Absolute Lymphocytes 1.9 10^3/uL (1.2-3.4); Absolute Monocytes 0.9 10^3/uL (0.1-0.6); Absolute Neutrophils 3.8 10^3/uL (1.4-6.5); Hematocrit 34.8 % (39.0-52.0); Hemoglobin 11.1 g/dL (13.0-18.0); Mean Corp Hgb Conc. 31.9 g/dL (33.0-37.0); Mean Corpuscular Volume 84.7 fL (80.0-94.0); Mean Platelet Volume 9.7 fL (7.4-10.4); Nucleated Red Blood Cells % 0 % (-); Platelet Count 326 10^3/uL (130-400); Red Blood Cell Count 4.11 10^6/uL (4.70-6.10); Red Cell Dist. Width 15.2 % (11.5-14.5); White Blood Cell Count 7.5 10^3/uL (4.8-10.8)
[2024-03-17 08:11] LABS: Blood Urea Nitrogen 21 mg/dl (9-20); Calcium 8.5 mg/dl (8.4-10.2); Carbon Dioxide 25 mmol/L (22-30); Chloride 105 mmol/L (98-107); Estimated Creatinine Clearance 105 ml/min; Glucose 110 mg/dl (70-99); Potassium 4.8 mmol/L (3.5-5.1); Sodium 141 mmol/L (135-145); eGFR > 60.00
[2024-03-17] MEDS: LEXAPRO 20 MG PO (08:38)
[2024-03-17] MEDS: ELIQUIS 5 MG PO (08:38)
[2024-03-17] MEDS: MS CONTIN (EXTENDED RELEASE) 30 MG PO (08:38)
[2024-03-17] MEDS: ROXICODONE 10 MG PO ×2 (08:38→11:18)
[2024-03-17] MEDS: NEURONTIN 800 MG PO (08:38)
[2024-03-17] MEDS: HYDROPHOR 1 APPLIC TOPICAL (08:40)
--- NOTE | 2024-03-17 09:07 | W.PN.ID1 ---
Date of Service
Date of Service: March 17, 2024
Today's Communication
Transition to cephalexin 1000mg po q8h through 03/23/24.
Assessment / Plan
# Acute left thigh cellulitis, improving
-Transition cefazolin dose to 2g IV q8 (d4) to cephalexin 1000mg po q8h through 03/23/24.
# Fever/leukocytosis due to cellulitis, resolved
- Bcx's NGTD
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
Hypertension
Neuropathy
Atrial fibrillation
History of upper GI bleed
Venous stasis
Hx LLE wounds
Spinal stenosis
Chronic pain
Anxiety/depression
History of MSSA left leg wound infection
History of MSSA left olecranon bursitis (2009) s/p I+D
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
L TKA
Chief Complaint
-: Cellulitis
Subjective / Review of Systems
Feels well.
Vital Signs / Physical Exam
Vital Signs
Vital Signs
Temp Pulse Resp BP Pulse Ox
96.3 F L 60 16 137/67 97
03/17/24 07:00 03/17/24 07:00 03/17/24 07:00 03/17/24 07:00 03/17/24 07:00
Physical Exam
Constitutional: No Acute Distress and Comfortable
Extremities: Other (left thigh erythema improving)
Objective Data
Lab Data
Lab Results
03/17/24 06:42
03/17/24 06:42
PT 16.7 Sec (11.4-14.6) H 03/13/24 13:29
INR 1.37 03/13/24 13:29
Estimated Creat Clear 105 ml/min 03/17/24 06:42
Lactic Acid Cancelled 03/13/24 17:30
Total Bilirubin 0.2 mg/dl (0.2-1.3) 03/14/24 06:49
AST 24 U/L (17-59) 03/14/24 06:49
ALT 15 U/L (0-50) 03/14/24 06:49
Alkaline Phosphatase 121 U/L (38-126) 03/14/24 06:49
Most recent labs reviewed.
Micro Results:
03/13/24 13:29 Blood Culture - Preliminary
Blood/Venous No Growth in 72 hours- Final report to follow
03/13/24 13:29 Blood Culture - Preliminary
Blood/Venous No Growth in 72 hours- Final report to follow
03/13/24 19:22 MRSA Screen - Final
Nose No Methicillin Resistant Staphylococcus aureus isolated.
Care Review
Plan reviewed with: Physician (Dr. Shavon Doherty)
--- NOTE | 2024-03-17 09:37 | CM ---
Addendum entered by Elisa Rivera 03/17/24 10:59:
Patient does not qualify for ambulance, family preservation caseworker reached out to admissions at [facility] and their van will pick patient up at 12:30 today.
Original Note:
Chart reviewed and patient is cleared for discharge today, plan for patient to transfer back to [facility] home. Patient will go by ambulance.
[facility]
Report: [phone]
--- NOTE | 2024-03-17 10:18 | W.PN.HOSP.TC ---
Today's Communication/Plan
-
dc to SNF today
Assessment / Plan
Assessment / Plan
Assessment:
Sepsis POA (fever, leukocytosis)
L thigh cellulitis, severe
- reported hx of MRSA, although patient denies, no prior MRSA cultures from wounds/leg (noted MSSA)
- MRSA negative
- BCX NGTD
- ID following; transition to cephalexin 1000mg po q8h through 03/23/24.
Chronic left lower extremity wounds with history of prior debridement - all present on arrival
- L Leg with healing venous ulcer, B/L great toe intact dry scabs. R knee with intact scab abrasion. L dorsal 2nd toe blanchable pink. L dorsal foot red maroon ning suspect abrasion
- wound care service following
Fungal infection between first and second toes left foot
- Likely fungal
- Topical miconazole continues
Permanent atrial fibrillation
- Patient in A-fib currently
- Continue Eliquis
Essential hypertension by history
- normotensive here, will monitor. Patient not on any meds
Chronic pain syndrome
- continue gabapentin, Profen, oxycodone
Anxiety/depression
- continue Seroquel, Lexapro
History of GI bleeding
DVT ppx: Eliquis
Code: DNR/DNI
More than 30 minutes spent in discharge including
Final examination of the patient
Summarizing hospital stay
Instructions for continuing care to all relevant caregivers
Preparation of discharge records, prescriptions, and referral forms
Total time spent (in minutes):41
Anticipated Discharge: Today
Subjective/Interval History
-
Date of Service: March 17, 2024
no new complaints at present
Objective Data
-
Labs:
Laboratory Results
03/17/24
06:42
WBC 7.5
Hgb 11.1 L
Hct 34.8 L
Plt Count 326
Sodium 141
Potassium 4.8
Chloride 105
Carbon Dioxide 25
BUN 21 H
Creatinine 0.8
Glucose 110 H
Calcium 8.5
Vital Signs:
Vital Signs
Temp Pulse Resp BP Pulse Ox
97.4 F 60 16 137/67 96
03/17/24 10:15 03/17/24 07:00 03/17/24 07:00 03/17/24 07:00 03/17/24 09:00
I&O
03/16/24 03/17/24 03/18/24
06:59 06:59 06:59
Intake Total 1200 / 1200 690 / 690
Output Total 750 / 750 700 / 700
Balance 450 / 450 -10 / -10
Physical Exam
-
General: No Apparent Distress
HEENT: Normocephalic and Atraumatic
Respiratory: Clear to Auscultation; Negative Wheezes or Rales
Cardiac: Regular Rhythm and S1/S2
GI: Soft
Musculoskeletal: Other (Left thigh with erythema (improving) irregular border from distal thigh extending up to hip, mildy warm. bilateral LE venous insufficiency)
Neuro: AO x 3
Hematologic / Lymphatic: No Lymphadenopathy
Psych: Calm
Data Reviewed
-
Total Time Spent with Patient (in minutes): 41
Labs: Labs Reviewed by me
--- NOTE | 2024-03-17 10:26 | W.DS.TRANS ---
DC Summary - [employer]
-
Discharge Instructions:
Sleep Apnea Risk High
Discharge Diagnosis/Procedures L thigh cellulitis
Diet Regular
Activity As tolerated
Bathing Restrictions None
Instructions:
Stand-Alone Forms:
Changes to Home Medications: No
Discharge Medications:
DC Medications w/original date entered in [employer]
escitalopram oxalate 20 mg tablet 20 mg PO DAILY Depression 11/14/14
apixaban 5 mg tablet (Eliquis) 5 mg PO BID Blood clot prevention/tx 06/28/21
acetaminophen 325 mg tablet 650 mg PO Q4HPRN PRN mild pain/temp>100 09/15/22
gabapentin 800 mg tablet 800 mg PO TID Pain 09/15/22
trazodone 50 mg tablet 25 mg PO HS Sleep 03/13/24
cephalexin 500 mg capsule 1,000 mg (2 x 500 mg) PO Q8H #42 caps 03/17/24
morphine 30 mg tablet,extended release (MS Contin) 30 mg PO Q12H Pain #10 tabs 03/17/24
oxycodone 10 mg tablet 10 mg PO DAILY Pain #5 tabs 03/17/24
oxycodone 10 mg tablet 10 mg PO Q6HPRN PRN breal through pains #10 tabs 03/17/24
Home Medication Changes
Pending Results: No
Total time spent discharging patient (in min): 41
--- NOTE | 2024-03-17 10:26 | W.DS.TRANS ---
DC Summary - [employer]
-
Discharge Instructions:
Sleep Apnea Risk High
Discharge Diagnosis/Procedures L thigh cellulitis
Diet Regular
Activity As tolerated
Bathing Restrictions None
Instructions:
Stand-Alone Forms:
Changes to Home Medications: No
Discharge Medications:
DC Medications w/original date entered in [facility]
escitalopram oxalate 20 mg tablet 20 mg PO DAILY Depression 11/14/14
apixaban 5 mg tablet (Eliquis) 5 mg PO BID Blood clot prevention/tx 06/28/21
acetaminophen 325 mg tablet 650 mg PO Q4HPRN PRN mild pain/temp>100 09/15/22
gabapentin 800 mg tablet 800 mg PO TID Pain 09/15/22
trazodone 50 mg tablet 25 mg PO HS Sleep 03/13/24
cephalexin 500 mg capsule 1,000 mg (2 x 500 mg) PO Q8H #42 caps 03/17/24
morphine 30 mg tablet,extended release (MS Contin) 30 mg PO Q12H Pain #10 tabs 03/17/24
oxycodone 10 mg tablet 10 mg PO DAILY Pain #5 tabs 03/17/24
oxycodone 10 mg tablet 10 mg PO Q6HPRN PRN breal through pains #10 tabs 03/17/24
Home Medication Changes
Pending Results: No
Total time spent discharging patient (in min): 41
[2024-03-17 11:00] VITALS: BP 109/64
== END 2024-03-17 12:30 | DRG 872 ==
LOC: 4 WEST ACU 14:49
PROVIDERS: Physician Assistant; ADMITTING PHYSICIAN Hospitalist; ATTENDING PHYSICIAN Internal Medicine; CONSULT PHYSICIAN Internal Medicine Infectious Disease; EMERGENCY PHYSICIAN Emergency Medicine; FAMILY PHYSICIAN Internal Medicine
DX: A41.9 Sepsis, unspecified organism (principal); I48.21 Permanent atrial fibrillation; L03.116 Cellulitis of left lower limb; F17.200 Nicotine dependence, unspecified, uncomplicated; I10 Essential (primary) hypertension; G62.9 Polyneuropathy, unspecified; R60.0 Localized edema; G89.4 Chronic pain syndrome; F32.A Depression, unspecified; F41.9 Anxiety disorder, unspecified; I87.8 Other specified disorders of veins; Z60.2 Problems related to living alone; Z66 Do not resuscitate; Z96.653 Presence of artificial knee joint, bilateral; Z86.19 Personal history of other infectious and parasitic diseases; Z79.01 Long term (current) use of anticoagulants; Z86.14 Personal history of Methicillin resistant Staphylococcus aureus infection; Z87.19 Personal history of other diseases of the digestive system
CPT/HCPCS: 80048; 80053; 83605; 85025; 85610; 87040; 87070; 93005; 96361; 96374; 99285

== ENCOUNTER 2024-04-19 20:42 | Inpatient (IN) | payer MEDICARE, OTHER, SELFPAY ==
[2024-04-19] VITALS (16 sets, daily range): BP systolic 74–148; BP diastolic 49–95; BMI 25.5
[2024-04-19] MEDS: NSS 1000 IV (17:10)
[2024-04-19 17:22] LABS: Hematocrit 36.9 % (39.0-52.0); Hemoglobin 11.4 g/dL (13.0-18.0); Mean Corp Hgb Conc. 30.9 g/dL (33.0-37.0); Mean Corpuscular Hgb 27.1 pg (27.0-31.0); Mean Corpuscular Volume 87.9 fL (80.0-94.0); Mean Platelet Volume 9.2 fL (7.4-10.4); Platelet Count 267 10^3/uL (130-400); Red Cell Dist. Width 16.1 % (11.5-14.5)
--- NOTE | 2024-04-19 17:33 | ED.GENMED ---
History of Present Illness
<Cassandra Middleton MD, Resident - Last Filed: 04/20/24 00:09>
General
Chief Complaint: Wound Check/Suture Removal
Time Seen by Provider: 04/19/24 16:54
History of Present Illness
History of Present Illness:
73-year-old male with past medical history of A-fib on Eliquis, leg wound infections, left thigh cellulitis, left olecranon bursitis, right knee PJI presenting to the ED with bleeding from a wound on his left lower leg. Pt states had debridement of
the wound earlier today and has had bleeding from the wound since 2 pm today. Denies any systemic symptoms.
Past History
<Cassandra Middleton MD, Resident - Last Filed: 04/20/24 00:09>
Past History
ED Past Medical History: Arrthythmia (afib on Eliquis), HTN and Other (neuropathy, Upper GI bleed, chronic LE edema)
ED Past Surgical History: Orthopedic (Bilateral knee replacements) and Other (gi bleed/operation )
Social History
Tobacco: Smoker
Personal: Single
Living: alone
Review of Systems
<Cassandra Middleton MD, Resident - Last Filed: 04/20/24 00:09>
Review of Systems
Constitutional: Reports no symptoms
EENT: Reports no symptoms
Respiratory: Reports no symptoms
Cardiac: Reports no symptoms
ABD/GI: Reports no symptoms
: Reports no symptoms
Musculoskeletal: Reports no symptoms
Skin: Reports no symptoms
Neurological: Reports no symptoms
Endocrine: Reports no symptoms
Hematologic/Lymphatic: Reports bleeding
Psychiatric: Reports no symptoms
Phy Exam
<Cassandra Middleton MD, Resident - Last Filed: 04/20/24 00:09>
Physical Exam
Physical Exam:
GENERAL: Alert, in no apparent distress. Hypotensive.
EYE: pupils equal and reactive
NECK: Supple, no significant adenopathy.
ENT: o/p clr, mmm.
CARDIAC: Regular rate and rhythm.
LUNGS: Clear breath sounds bilaterally, no acute respiratory distress, no wheezes/rales/rhonchi
ABDOMEN: Soft, without focal tenderness, no r/g, no cvat
NEUROLOGICAL: Alert and oriented, no focal neuro deficits
SKIN: Warm and dry, skin intact.
MUSCULOSKELETAL: Left lower leg: Open wound with oozing blood on the lateral side of leg. Distal pulses palpated.
PSYCH: Normal and appropriate interaction.
Course
<Cassandra Middleton MD, Resident - Last Filed: 04/20/24 00:09>
Orders/Labs/Results
Orders:
Orders
04/19/24 17:09
0.9% Sodium Chloride 1000 ml [Nss] 1,000 ml IV BOLUS
04/19/24 17:11
C-Reactive Protein Urgent
Comment: ADD ON
Complete Blood Count/With Diff Urgent
Comprehensive Metabolic Panel Urgent
04/19/24 17:30
CR Chest Portable - 1 View Urgent
Comment:
Reason For Exam: hypotension, left calf wound, elevated wbc
Reason Study Needs to be Portable: Patient Unstable
04/19/24 17:49
Lactic Acid Q4H
Comment: CANCEL 2nd LACTIC ACID IF 1st LACTIC ACID IS LESS THAN 2
PTT Urgent
Procalcitonin Urgent
PCT Algorithmm Indication: Sepsis
Prothrombin Time Urgent
Urinalysis Reflex To Culture Urgent
Date Specimen was Collected: 04/19/24
Time Specimen was Collected: 17:46
Urine Microscopic Reflex Cult Urgent
Blood Culture Q30M
CRISTÓBAL Source: Blood/Venous
Specimen Description:
Blood Culture Q30M
CRISTÓBAL Source: Blood/Venous
Specimen Description:
Influenza A+B Rapid Molecular Urgent
CRISTÓBAL Source: Nasal Swab
Specimen Description:
Urine Culture Urgent
CRISTÓBAL Source: U
Specimen Description:
Date Specimen was Collected: 04/19/24
Time Specimen was Collected: 17:46
04/19/24 18:08
COVID-19 Antigen Urgent
Source: Nasal Swab
04/19/24 18:31
0.9% Sodium Chloride 1000 ml [Nss] 1,600 ml IV NOW STA
Piperacillin/Tazo 4.5 Gram [Zosyn] 4.5 gram in 100 ml IV NOW
04/19/24 18:39
Influenza A+B Rapid Molecular Urgent
CRIST[facility]BAL Source: [facility]
Specimen Description:
04/19/24 18:41
Vancomycin [Vancocin] 2,000 mg 0.9% Sodium Chloride 500 ml [Nss] 500 ml IV NOW
04/19/24 18:54
Acetaminophen 1000MG/100Ml [Ofirmev] 1,000 mg in 100 ml IV ONCE
Acetaminophen IV Indication:: ED Narcotic Naive Pt-ONCE
04/19/24 20:07
Admit/Transfer Patient As Directed
Co-Sign Provider:
Level of Care: Inpatient admission
Assign to:: ICU
Physician / Group: Desi Joshua
Diagnosis: Sepsis
Reason for Hospitalization: Sepsis
Expected length of stay greater than two midnights?: Yes
ELOS- Estimated Length of Stay in days: 3
I certify the patient meets the requirements for IP care: Yes
04/19/24 20:08
PRN Pain Medication Management As Directed
May give lesser potent ordered pain med per pt: Yes
preference::
Protocol:: Medication orders for pain may be administered in a
manner that supports deferring to patient preference
when the pt is:
- Requesting an ordered lesser potent pain medication.
Least to most potent pain medications are defined
as: acetaminophen < NSAID < tramadol < opioids
(morphine, oxycodone, hydromorphone).
- Requesting a lesser dose of the same medication IF
ORDERED.
- Requesting a less intrusive route of administration
if both routes are prescribed by the provider (PO <
IV).
04/19/24 20:09
Code Status As Directed
Resuscitation Status: Full Code
04/19/24 20:16
0.9% Sodium Chloride 500 ml [Nss] 500 ml IV BOLUS
04/19/24 20:39
Add On- LAB Stat
Tests Added?: crp
04/19/24 20:58
NORepinephrine 4 MG/250 ML [Levophed] 4 mg in 250 ml IV PER PROTOCOL
Initial dose in mcg/min, then titrate:: 2
Titrate to keep:: MAP > 65 mmHg
Titrate by mcg/min:: 1-2 mcg/min
Frequency of titrations (minutes):: 5
Maximum dose in ICU in mcg/min:: 30
Maximum dose in IMU in mcg/min:: 8
Maximum dose in IVU in mcg/min:: 4
Begin to taper infusion when:: Remained at goal for 4hrs
Taper by mcg/min:: 1-2 mcg/min
Frequency of taper (minutes) if patient maintains goal:: 30
Taper to off?: Yes
If infusion off & no longer maintaining goal:: Contact Provider
04/19/24 21:45
Lactic Acid Q4H
Comment: CANCEL 2nd LACTIC ACID IF 1st LACTIC ACID IS LESS THAN 2
04/19/24 22:01
Lactated Ringers [Lr] 1,000 ml IV 125 mls/hr
Oxycodone [Roxicodone] 10 mg PO Q6HPRN PRN
Trazodone [Desyrel] 25 mg PO HS
VANCOMYCIN Pharmacy to Dose [VANCOCIN Pharmacy to Dose] 1 each Pharmacy To Prepare [Call Pharmacy To Prepare] 0 ml IV PER PROTOCOL
04/19/24 22:01
Consult Surgery [SURGICAL CONSULT] Routine
Consulting Provider: Josiah Leon
Was physician already notified: Yes
Activity As Directed
Activity Level: With Assistance
Intake/ Output As Directed
Frequency: Per unit guidelines
Vital Signs As Directed
Frequency: Per unit guidelines
DX Deep Vein Thrombosis Video Routine
04/19/24 23:00
Gabapentin [Neurontin] 300 mg PO TID
04/20/24 01:00
Acetaminophen [Tylenol] 650 mg PO Q4HPRN PRN
04/20/24 Breakfast
NPO
Allow oral meds: Yes
Allow clear liquids: No
Complete Blood Count/With Diff IN AM
Comprehensive Metabolic Panel IN AM
04/20/24 08:00
Escitalopram Oxalate [Lexapro] 20 mg PO DAILY
Heparin 5,000 units SC Q8
04/21/24 06:00
Complete Blood Count/With Diff IN AM
Comprehensive Metabolic Panel IN AM
04/22/24 06:00
Complete Blood Count/With Diff IN AM
Comprehensive Metabolic Panel IN AM
Abnormal Lab Results
04/19/24 04/19/24
17:11 17:49
WBC 29.0 H 10^3/uL
(4.8-10.8)
RBC 4.20 L 10^6/uL
(4.70-6.10)
Hgb 11.4 L g/dL
(13.0-18.0)
Hct 36.9 L %
(39.0-52.0)
MCHC 30.9 L g/dL
(33.0-37.0)
RDW 16.1 H %
(11.5-14.5)
Abs Immat Gran (auto) 0.3 H 10^3/uL
(0-0.05)
Absolute Neuts (auto) 25.1 H 10^3/uL
(1.4-6.5)
Absolute Monos (auto) 2.0 H 10^3/uL
(0.1-0.6)
Immature Gran % 1.0 H %
(0-0.5)
Neutrophils % 86.6 H %
(42.2-75.2)
Lymphocytes % 5.3 L %
(20.5-51.1)
PT 21.4 H Sec
(11.4-14.6)
APTT 38.5 H Sec
(23.4-35.0)
Sodium 134 L mmol/L
(135-145)
Potassium 5.5 H mmol/L
(3.5-5.1)
BUN 27 H mg/dl
(9-20)
Creatinine 1.6 H mg/dL
(0.7-1.3)
Glucose 133 H mg/dl
(70-99)
Lactic Acid 2.4 H mmol/L
(0.7-2.0)
C-Reactive Protein 168.70 H mg/L
(0.0-10.00)
Albumin 3.3 L g/dl
(3.5-5.0)
Procalcitonin 5.40 H* ng/ml
(0.0-0.25)
Ur Occult Blood Reflex 4+ A
(Negative)
Urine Nitrite (Reflex) Positive A
(Negative)
Leukocyte Esterase Rfl 2+ A
(Negative)
Urine RBC 16-20 A /HPF
(0-2)
Urine WBC (Reflex) 80-90 A /HPF
(0-5)
Urine Bacteria (Reflex) Many A
(Negative)
Urine Albumin (Reflex) 2+ A
(Neg - Trace)
04/19/24 17:11
04/19/24 17:11
Vital Signs
Initial and Last Documented VS:
Initial Vital Signs
Temp Pulse BP Pulse Ox
98.1 F 78 80/53 91
04/19/24 17:01 04/19/24 17:01 04/19/24 17:01 04/19/24 17:01
Last Documented Vital Signs
Temp Pulse Resp BP Pulse Ox
97.9 F 98 29 148/95 99
04/19/24 23:08 04/19/24 23:15 04/19/24 23:15 04/19/24 23:07 04/19/24 23:01
<Kun Hedrick MD - Last Filed: 04/19/24 20:19>
Orders/Labs/Results
Orders:
Orders
04/19/24 17:09
0.9% Sodium Chloride 1000 ml [Nss] 1,000 ml IV BOLUS
04/19/24 17:11
C-Reactive Protein Urgent
Comment: ADD ON
Complete Blood Count/With Diff Urgent
Comprehensive Metabolic Panel Urgent
04/19/24 17:30
CR Chest Portable - 1 View Urgent
Comment:
Reason For Exam: hypotension, left calf wound, elevated wbc
Reason Study Needs to be Portable: Patient Unstable
04/19/24 17:49
Lactic Acid Q4H
Comment: CANCEL 2nd LACTIC ACID IF 1st LACTIC ACID IS LESS THAN 2
PTT Urgent
Procalcitonin Urgent
PCT Algorithmm Indication: Sepsis
Prothrombin Time Urgent
Urinalysis Reflex To Culture Urgent
Date Specimen was Collected: 04/19/24
Time Specimen was Collected: 17:46
Urine Microscopic Reflex Cult Urgent
Blood Culture Q30M
CRIST[place]BAL Source: Blood/Venous
Specimen Description:
Blood Culture Q30M
CRIST[place]BAL Source: Blood/Venous
Specimen Description:
Influenza A+B Rapid Molecular Urgent
CRIST[place]BAL Source: Nasal Swab
Specimen Description:
Urine Culture Urgent
CRISTÓBAL Source: U
Specimen Description:
Date Specimen was Collected: 04/19/24
Time Specimen was Collected: 17:46
04/19/24 18:08
COVID-19 Antigen Urgent
Source: Nasal Swab
04/19/24 18:31
0.9% Sodium Chloride 1000 ml [Nss] 1,600 ml IV NOW STA
Piperacillin/Tazo 4.5 Gram [Zosyn] 4.5 gram in 100 ml IV NOW
04/19/24 18:39
Influenza A+B Rapid Molecular Urgent
CRIST[facility]BAL Source: [facility]
Specimen Description:
04/19/24 18:41
Vancomycin [Vancocin] 2,000 mg 0.9% Sodium Chloride 500 ml [Nss] 500 ml IV NOW
04/19/24 18:54
Acetaminophen 1000MG/100Ml [Ofirmev] 1,000 mg in 100 ml IV ONCE
Acetaminophen IV Indication:: ED Narcotic Naive Pt-ONCE
04/19/24 20:07
Admit/Transfer Patient As Directed
Co-Sign Provider:
Level of Care: Inpatient admission
Assign to:: ICU
Physician / Group: Desi Joshua
Diagnosis: Sepsis
Reason for Hospitalization: Sepsis
Expected length of stay greater than two midnights?: Yes
ELOS- Estimated Length of Stay in days: 3
I certify the patient meets the requirements for IP care: Yes
04/19/24 20:08
PRN Pain Medication Management As Directed
May give lesser potent ordered pain med per pt: Yes
preference::
Protocol:: Medication orders for pain may be administered in a
manner that supports deferring to patient preference
when the pt is:
- Requesting an ordered lesser potent pain medication.
Least to most potent pain medications are defined
as: acetaminophen < NSAID < tramadol < opioids
(morphine, oxycodone, hydromorphone).
- Requesting a lesser dose of the same medication IF
ORDERED.
- Requesting a less intrusive route of administration
if both routes are prescribed by the provider (PO <
IV).
04/19/24 20:09
Code Status As Directed
Resuscitation Status: Full Code
04/19/24 20:16
0.9% Sodium Chloride 500 ml [Nss] 500 ml IV BOLUS
04/19/24 20:39
Add On- LAB Stat
Tests Added?: crp
04/19/24 20:58
NORepinephrine 4 MG/250 ML [Levophed] 4 mg in 250 ml IV PER PROTOCOL
Initial dose in mcg/min, then titrate:: 2
Titrate to keep:: MAP > 65 mmHg
Titrate by mcg/min:: 1-2 mcg/min
Frequency of titrations (minutes):: 5
Maximum dose in ICU in mcg/min:: 30
Maximum dose in IMU in mcg/min:: 8
Maximum dose in IVU in mcg/min:: 4
Begin to taper infusion when:: Remained at goal for 4hrs
Taper by mcg/min:: 1-2 mcg/min
Frequency of taper (minutes) if patient maintains goal:: 30
Taper to off?: Yes
If infusion off & no longer maintaining goal:: Contact Provider
04/19/24 21:45
Lactic Acid Q4H
Comment: CANCEL 2nd LACTIC ACID IF 1st LACTIC ACID IS LESS THAN 2
04/19/24 22:01
Lactated Ringers [Lr] 1,000 ml IV 125 mls/hr
Oxycodone [Roxicodone] 10 mg PO Q6HPRN PRN
Trazodone [Desyrel] 25 mg PO HS
VANCOMYCIN Pharmacy to Dose [VANCOCIN Pharmacy to Dose] 1 each Pharmacy To Prepare [Call Pharmacy To Prepare] 0 ml IV PER PROTOCOL
04/19/24 22:01
Consult Surgery [SURGICAL CONSULT] Routine
Consulting Provider: Josiah Leon
Was physician already notified: Yes
Activity As Directed
Activity Level: With Assistance
Intake/ Output As Directed
Frequency: Per unit guidelines
Vital Signs As Directed
Frequency: Per unit guidelines
DX Deep Vein Thrombosis Video Routine
04/19/24 23:00
Gabapentin [Neurontin] 300 mg PO TID
04/20/24 01:00
Acetaminophen [Tylenol] 650 mg PO Q4HPRN PRN
04/20/24 Breakfast
NPO
Allow oral meds: Yes
Allow clear liquids: No
Complete Blood Count/With Diff IN AM
Comprehensive Metabolic Panel IN AM
04/20/24 08:00
Escitalopram Oxalate [Lexapro] 20 mg PO DAILY
Heparin 5,000 units SC Q8
04/21/24 06:00
Complete Blood Count/With Diff IN AM
Comprehensive Metabolic Panel IN AM
04/22/24 06:00
Complete Blood Count/With Diff IN AM
Comprehensive Metabolic Panel IN AM
Abnormal Lab Results
04/19/24 04/19/24
17:11 17:49
WBC 29.0 H 10^3/uL
(4.8-10.8)
RBC 4.20 L 10^6/uL
(4.70-6.10)
Hgb 11.4 L g/dL
(13.0-18.0)
Hct 36.9 L %
(39.0-52.0)
MCHC 30.9 L g/dL
(33.0-37.0)
RDW 16.1 H %
(11.5-14.5)
Abs Immat Gran (auto) 0.3 H 10^3/uL
(0-0.05)
Absolute Neuts (auto) 25.1 H 10^3/uL
(1.4-6.5)
Absolute Monos (auto) 2.0 H 10^3/uL
(0.1-0.6)
Immature Gran % 1.0 H %
(0-0.5)
Neutrophils % 86.6 H %
(42.2-75.2)
Lymphocytes % 5.3 L %
(20.5-51.1)
PT 21.4 H Sec
(11.4-14.6)
APTT 38.5 H Sec
(23.4-35.0)
Sodium 134 L mmol/L
(135-145)
Potassium 5.5 H mmol/L
(3.5-5.1)
BUN 27 H mg/dl
(9-20)
Creatinine 1.6 H mg/dL
(0.7-1.3)
Glucose 133 H mg/dl
(70-99)
Lactic Acid 2.4 H mmol/L
(0.7-2.0)
C-Reactive Protein 168.70 H mg/L
(0.0-10.00)
Albumin 3.3 L g/dl
(3.5-5.0)
Procalcitonin 5.40 H* ng/ml
(0.0-0.25)
Ur Occult Blood Reflex 4+ A
(Negative)
Urine Nitrite (Reflex) Positive A
(Negative)
Leukocyte Esterase Rfl 2+ A
(Negative)
Urine RBC 16-20 A /HPF
(0-2)
Urine WBC (Reflex) 80-90 A /HPF
(0-5)
Urine Bacteria (Reflex) Many A
(Negative)
Urine Albumin (Reflex) 2+ A
(Neg - Trace)
04/19/24 17:11
04/19/24 17:11
Vital Signs
Initial and Last Documented VS:
Initial Vital Signs
Temp Pulse BP Pulse Ox
98.1 F 78 80/53 91
04/19/24 17:01 04/19/24 17:01 04/19/24 17:01 04/19/24 17:01
Last Documented Vital Signs
Temp Pulse Resp BP Pulse Ox
97.9 F 98 29 148/95 99
04/19/24 23:08 04/19/24 23:15 04/19/24 23:15 04/19/24 23:07 04/19/24 23:01
<Cassandra Middleton MD, Resident - Last Filed: 04/20/24 00:09>
MDM/Problems Addressed
MDM/Problems Addressed:
- sepsis work up
- IVF
<Cassandra Middleton MD, Resident - Last Filed: 04/20/24 00:09>
*Critical Care Note
Total Time (30-74mins, 75-104mins- exclusive of procedures): Not Applicable
ED Attending Note
<Cassandra Middleton MD, Resident - Last Filed: 04/20/24 00:09>
-
Portions of this chart may have been created with voice recognition software.� Occasional wrong word or��sound alike� substitutions may have occurred due to the inherent limitations of voice recognition software.
<Kun Hedrick MD - Last Filed: 04/19/24 20:19>
ED Attending Note
Patient seen and examined by attending physician: Yes
I performed a history and physical exam of patient and discussed management with resident, I reviewed resident's note and agree with documented findings and plan of care.: Yes
ED Attending Note:
73-year-old male sent for bleeding from the left wound site. Wound was debrided this morning. Patient is on Eliquis. Patient states he feels at baseline. No chest pain shortness of breath cough abdominal pain etc.
On exam patient is hypotensive. He is alert oriented chronically ill-appearing but in no distress.
Lungs are clear and equal. Heart regular rate and rhythm he has an open wound to the left lower leg this is a small area of oozing blood. However no obvious cellulitis. Extremities are warm and dry chronic edema
Impression hypotension/high white count/elevated procalcitonin. All consistent with sepsis. Sepsis fluids ordered. Antibiotics ordered. Leg was wrapped with Gelfoam and Abhay wrap. Admit to medicine.
2019... Patient rechecked multiple times. Medically stable. Sleeping. Blood pressure 89. Fluids complete.
Discharge Plan
Departure
Patient Disposition: Admit
Date of Disposition: 04/19/24
Time of Disposition: 19:12
Presentation/result/management discussed w/ accepting MD/DO: Hospitalist
Patient with high blood pressure during this ER visit?: No
Discharge Problem:
Sepsis
Interventions
Interventions:
*Risk Screen - Suicide Last Done: 04/19/24 22:13
*General Assessment Last Done: 04/19/24 17:01
*Neglect/Abuse Screening Last Done: 04/19/24 17:01
ED- Fall Risk Assessment Last Done: 04/19/24 17:05
*ED COVID-19 Vaccine History Last Done: 04/19/24 22:13
*Nursing Disposition Last Done: 04/19/24 22:04
ED-Skin Assessment Last Done: 04/19/24 17:05
Discharge Date and Time
Discharge Date/Time: 04/19/24 22:05
[2024-04-19 17:41] LABS: ALT (SGPT) 12 U/L (0-50); AST (SGOT) 20 U/L (17-59); Albumin 3.3 g/dl (3.5-5.0); Alkaline Phosphatase 119 U/L (38-126); Blood Urea Nitrogen 27 mg/dl (9-20); Calcium 8.4 mg/dl (8.4-10.2); Carbon Dioxide 22 mmol/L (22-30); Chloride 100 mmol/L (98-107); Estimated Creatinine Clearance 46 ml/min; Glucose 133 mg/dl (70-99); Potassium 5.5 mmol/L (3.5-5.1); Sodium 134 mmol/L (135-145); Total Bilirubin 0.9 mg/dl (0.2-1.3); Total Protein 7.2 g/dl (6.3-8.2); eGFR 45.21
[2024-04-19 17:43] LABS: % Basophils 0.2 % (0-2); % Lymphocytes 5.3 % (20.5-51.1); % Monocytes 6.9 % (1.7-9.3); % Neutrophils 86.6 % (42.2-75.2); Absolute Basophils 0.1 10^3/uL (0-0.2); Absolute Immature Granulocytes 0.3 10^3/uL (0-0.05); Absolute Lymphocytes 1.5 10^3/uL (1.2-3.4); Absolute Neutrophils 25.1 10^3/uL (1.4-6.5); Nucleated Red Blood Cells % 0 % (-)
[2024-04-19 18:11] LABS: Lactic Acid 2.4 mmol/L (0.7-2.0)
[2024-04-19 18:14] LABS: INR 1.81; PT 21.4 Sec (11.4-14.6)
[2024-04-19 18:15] LABS: APTT 38.5 Sec (23.4-35.0)
[2024-04-19 18:32] LABS: COVID-19 Antigen Negative (Negative)
[2024-04-19] MEDS: ZOSYN 100 IV (18:38)
[2024-04-19] MEDS: NSS 1600 ML IV (18:41)
[2024-04-19] MEDS: VANCOCIN 540 MG IV (18:49)
[2024-04-19] MEDS: OFIRMEV 100 IV (19:15)
--- NOTE | 2024-04-19 19:34 | HPS.HSE ---
Family Physician
-
Family Physician: Anival Correia
Chief Complaint
-
bleeding from wound
History of Present Illness
Patient is a 73-year-old male with past medical history significant for hypertension, COPD, a-fib, lymphedema of b/l lower extremities, and depression who presented to [place] ED for evaluation of bleeding from on lower left leg. Patient states
he had wound debridement earlier today and has had bleeding since approximately 1400. Denies any other symptoms at this time.
Medical History
Past Medical History
Past Medical History: Reports Other
Additional Past Medical History:
hypertension
COPD
a-fib
lymphedema of b/l lower extremities
depression
neuropathy
insomnia
Hx GI bleed
Past Surgical History: Reports Other
Additional Past Surgical History:
bilateral knee replacements
wound debridement
Social History
Tobacco: Former Smoker (quit 1 year ago)
Alcohol: None
Drug: None
Personal: Single
Living: Alone
Employment: Retired
Family History
Family History: Not pertinent
Allergies / Home Medications
Allergies reflects when Allergies were last updated in [employer].
Home Medications with original date entered in [employer]
Allergy/Medication List:
Allergies
Allergy/AdvReac Type Severity Reaction Status Date / Time
No Known Allergies Allergy Verified 11/19/22 12:59
Home Medications
escitalopram oxalate 20 mg tablet 20 mg PO DAILY Depression 11/14/14
apixaban 5 mg tablet (Eliquis) 5 mg PO BID Blood clot prevention/tx 06/28/21
acetaminophen 325 mg tablet 650 mg PO Q4HPRN PRN mild pain/temp>100 09/15/22
gabapentin 800 mg tablet 800 mg PO TID Pain 09/15/22
trazodone 50 mg tablet 25 mg PO HS Sleep 03/13/24
oxycodone 10 mg tablet 10 mg PO DAILY Pain #5 tabs 03/17/24
morphine 30 mg tablet,extended release (MS Contin) 30 mg PO BID Pain 04/19/24
ondansetron HCl 4 mg tablet 4 mg PO Q6HPRN PRN nausea/vomiting 04/19/24
oxycodone 10 mg tablet 10 mg PO Q6HPRN PRN breakthrough pain 04/19/24
Review of Systems
-
History Source: Patient
A 12 point ROS was completed and negative except as noted: Yes
Constitutional: Reports No Symptoms
EENT: Reports No Symptoms
Respiratory: Reports No Symptoms
Cardiac: Reports No Symptoms
Abdomen/GI: Reports No Symptoms
: Reports No Symptoms
Musculoskeletal: Reports No Symptoms
Skin: Reports See HPI and Other
Neurological: Reports No Symptoms
Endocrine: Reports No Symptoms
Hematologic/Lymphatic: Reports No Symptoms
Psych: Reports No Symptoms
Physical Exam
Vital Signs
Vital Signs
Temp Pulse Resp BP Pulse Ox
98.1 F 82 24 76/53 93
04/19/24 17:01 04/19/24 18:01 04/19/24 18:01 04/19/24 18:01 04/19/24 18:15
Physical Exam
General: Well Developed, Well Nourished, No Apparent Distress, Comfortable and Conversant
HEENT: NormoCephalic, Moist mucous membranes, Atraumatic, Otis Conjunctivae, Nose Appears Normal and Ears Appear Normal
Respiratory: Clear and Non Labored Respirations
Cardiac: S1/S2 and Regular Rhythm; No Murmur, Rub or Gallop
GI: Soft, Non Tender, Non Distended and Normal Bowel Sounds; No Organomegaly
Rectal: Deferred by Provider
Genito-urinary: Deferred by me
Musculoskeletal: No Clubbing, No Cyanosis and No Edema
Skin: Warm, Dry, Lesions, IV/Catheter Site and Other (wound to left lower extremity); No Rash
Neuro: Awake, Alert, AO x 3 and Nonfocal/grossly intact
Psych: Calm
Laboratory Results
-
04/19/24 17:11
04/19/24 17:11
Laboratory Results
PT 21.4 Sec (11.4-14.6) H 04/19/24 17:49
INR 1.81 04/19/24 17:49
APTT 38.5 Sec (23.4-35.0) H 04/19/24 17:49
Lactic Acid 2.4 mmol/L (0.7-2.0) H 04/19/24 17:49
Total Bilirubin 0.9 mg/dl (0.2-1.3) 04/19/24 17:11
AST 20 U/L (17-59) 04/19/24 17:11
ALT 12 U/L (0-50) 04/19/24 17:11
Alkaline Phosphatase 119 U/L (38-126) 04/19/24 17:11
Data Reviewed
-
Diagnostic Radiology: Report Reviewed by me (CXR: Stable appearance of the chest, as described. No superimposed acute cardiopulmonary process appreciated.)
Lab Data: Labs Reviewed by me
Impression/Plan
-
IMPRESSION/PLAN:
#Sepsis
Leukocytosis, tachypnea, hypotensive
- Admit to IMU
- blood cultures pending
- IVF LR 125cc/hr
- Vanco
- ID consult
- Levophed ordered to maintain MAP >60
#Chronic left lower extremity wound with debridement today
- pressure dressing in place
- surgery consult
#a-fib
- hold Eliquis
#depression
- continue escitalopram
#neuropathy
- continue gabapentin
#insomnia
- continue trazodone
#lymphedema of b/l lower extremities
- stable
#hypertension
- monitor
#COPD
- stable
Code Status: Full Code
DVT Prophylaxis: Heparin Sq
--- NOTE | 2024-04-19 20:00 | W.PN.UPDATE ---
Update Note
Progress Note Update
Patient seen in conjunction with [employer]. I agree with the findings on history and physical as well as the assessment and plan.
Briefly, this is a 73-year-old with past medical history of atrial fibrillation on Eliquis, chronic left lower extremity wound, opioid dependence, recent admission on last month for left lower extremity, left thigh cellulitis ultimately treated with
Keflex and completed course who presents to the emergency department after a wound debridement today. Patient previously in usual state of health before procedure denying any fevers chills nausea vomiting or diarrhea. After the procedure he had
ongoing bleeding from the wound sites and said he came to the emergency department. In the ED he arrived hypotensive with a blood pressure of sepsis with a 53, otherwise and afebrile. No RVR. He had a leukocytosis to 20,000 his hemoglobin was
stable at 11.4 with a normal platelet count. Lactic acid was elevated 2.4 procalcitonin was elevated. He had CYNTHIA with a creatinine of 1.6. Potassium was 5.5.
Assessment and plan:
1. Sepsis - Suspect bacteremia in setting of wound debridement. Some blood loss but unlikely etiology of hypotension. Discussed with surgery. Mid score for nec fasciitis, awaiting crp. On my exam less likelihood of necrotizing fasciitis. CYNTHIA
precludes contrast imaging. LinRec score = 5; 9 if + CRP. Medical management and close monitoring
- admit to icu for initial resuscitation
- non-contrast LLE CT, add on crp
- blood cultures,u/a
- sepsis protocol, 30ml/kg crystalloids,
- start levophed to keep MAP > 60
- IV LR
- IV vancomycin, clindamycin and zosyn for now
- ID consultation, surgery consult.
2. Wound debridement and bleeding
- pressure dressing applied
- hold eliquis, no indication for reversal
- surgery consult.
3. AFIB
- holding eliquis
- not on rate control currently
4. Chronic pain
- oxycodone 10mg q6hrs prn
- gabapentin tid ok
- acetaminophen for fever and mild pain
- hold ms contin for now
5. CYNTHIA - Cr 1.6 up from baseline fredo / ATN/sepsis
- sepsis protocol as above
- IV fluids LR @ 125 ml/hr
- keep MAP> 60
- renal consult if worsening CYNTHIA
DVT PPX - heparin sq ok
Code status - Full Code
[2024-04-19] MEDS: NSS 500 IV (20:35)
[2024-04-19] MEDS: LEVOPHED 250 IV (21:03)
[2024-04-19] MEDS: FLUSH (NSS) 1 FLUSH IV (21:04)
[2024-04-19 21:22] LABS: Urine Albumin 2+ (Neg - Trace); Urine Bilirubin Negative (Negative); Urine Character Slightly Cloudy (Clear); Urine Color Yellow; Urine Glucose Negative (Negative); Urine Ketone Negative (Negative); Urine Leukocyte 2+ (Negative); Urine Nitrite Positive (Negative); Urine Occult Blood 4+ (Negative); Urine Specific Gravity 1.015 (<1.030); Urine Urobilinogen Negative (Neg - 1+)
[2024-04-19 21:31] LABS: Urine Red Blood Cell 16-20 /HPF (0-2); Urine Squamous Cell 0-2 /LPF (Few); Urine White Cell 80-90 /HPF (0-5)
[2024-04-19 21:32] LABS: Urine Bacteria Many (Negative)
--- NOTE | 2024-04-19 22:18 | PHA.VAN.IN ---
Assessment
- Assessment
Renal Function: Appears elevated from baseline (03/17/24 BASELINE SCR: 0.8)
Concomitant Antimicrobials: CLINDAMYCIN
- Previous Dosing Experience
Previous Regimen: 1250MG IV Q12H
Date of Regimen: 03/14/24
Provided Trough of: 16 PREDICTED
Provided AUC of: 582 PREDICTED
Patient's SCR is: Elevated compared to previous dosing experience (03/14/24 SCR = 0.9)
Patient's weight is: Decreased compared to previous dosing experience (03/14/24 WT = 103 KG)
Plan
- Plan
Initial / Loading Dose: 2GM
Maintenance Regimen: DOSING BY RANDOM LEVEL
Monitoring: RANDOM VANCOMYCIN LEVEL 04/20/24 AM
Pharmacokinetics Vancomycin I
- -
Patient Age: 73
Patient Sex: Male
Vancomycin Day #: 1
Height / Weight:
Height 6 ft 1 in
Actual Weight 87.8 kg
- Vital Signs / Lab Results
Temp Pulse Resp BP Pulse Ox
98.1 F 83 18 132/62 97
04/19/24 17:01 04/19/24 22:00 04/19/24 22:00 04/19/24 21:40 04/19/24 20:45
Lab Results - Hematology
04/19/24
17:11
WBC 29.0 H
Lab Results - Chemistry
04/19/24
17:11
BUN 27 H
Creatinine 1.6 H
Estimated Creat Clear 46
Albumin 3.3 L
04/19/24
17:49
Lactic Acid 2.4 H
Lab Results - Urine
04/19/24
17:49
Urine Nitrite (Reflex) Positive A
Leukocyte Esterase Rfl 2+ A
Urine WBC (Reflex) 80-90 A
Ur Squamous Epith Cells 0-2
Urine Bacteria (Reflex) Many A
Microbiology Results
04/19/24 18:39 Influenza Types A & B (AKSHAT) - Final
Nasal Swab Negative for Influenza A & B, NAAT
Negative results must be combined with clinical observations
and patient history.
Nucleic Acid Amplification test (NAAT)performed on the
[employer] NOW platform.
04/19/24 17:49 Influenza Types A & B (AKSHAT) - Final
Nasal Swab Test repeatedly invalid.
Nucleic Acid Amplification test (NAAT)performed on the
[employer] ID NOW platform.
[2024-04-19] MEDS: LR 1000 IV (23:06)
[2024-04-19] MEDS: DESYREL 25 MG PO (23:07)
[2024-04-19] MEDS: TYLENOL 650 MG PO (23:08)
[2024-04-19] MEDS: NEURONTIN 300 MG PO (23:14)
[2024-04-19] MEDS: CLEOCIN 50 IV (23:15)
[2024-04-20] VITALS (68 sets, daily range): BP systolic 69–135; BP diastolic 47–108; BMI 30.4
--- NOTE | 2024-04-20 00:23 | PTCARENOTE ---
received bedside report from ED nurse, change in level of care while pt was being transferred by ED, pt AAOx3, agitated and anxious, EDWARDS, AFIB on the monitor, +radials doppler pedals, +2 LE, B/L crackles @ bases, diminished throughout, RA SpO2 95%
moist productive cough, BSx4 NPO, CC#21 placed yellow output pt completely saturated, CHG bath, 20G R wrist, 20G LAC, LLL wrapped with nasim, but legs dry scaly skin, pt c/o lower back pain refer to mar, levo 2mcg/7.5ml, call wong within reach, pt
able to make needs known, otherwise refer to documentation.
--- NOTE | 2024-04-20 04:00 | PTCARENOTE ---
systems reviewed, gtts titrated per worklist, pt refusing turn stating he is to comfortable, reports no pain after treating with tylenol, abx, otherwise refer to documentation
[2024-04-20 04:17] LABS: Hematocrit 31.2 % (39.0-52.0); Hemoglobin 9.7 g/dL (13.0-18.0); Mean Corp Hgb Conc. 31.1 g/dL (33.0-37.0); Mean Corpuscular Hgb 26.6 pg (27.0-31.0); Mean Corpuscular Volume 85.7 fL (80.0-94.0); Mean Platelet Volume 9.6 fL (7.4-10.4); Platelet Count 240 10^3/uL (130-400); Red Blood Cell Count 3.64 10^6/uL (4.70-6.10); White Blood Cell Count 27.3 10^3/uL (4.8-10.8)
[2024-04-20 04:41] LABS: Vancomycin Random 14.8 ug/ml
[2024-04-20 04:49] LABS: Lactic Acid 1.2 mmol/L (0.7-2.0)
[2024-04-20 04:53] LABS: Blood Urea Nitrogen 26 mg/dl (9-20); Calcium 7.6 mg/dl (8.4-10.2); Carbon Dioxide 22 mmol/L (22-30); Chloride 106 mmol/L (98-107); Estimated Creatinine Clearance 57 ml/min; Glucose 111 mg/dl (70-99); Potassium 4.5 mmol/L (3.5-5.1); Sodium 138 mmol/L (135-145); eGFR 58.01
[2024-04-20 04:54] LABS: ALT (SGPT) 10 U/L (0-50); AST (SGOT) 17 U/L (17-59); Albumin 2.6 g/dl (3.5-5.0); Alkaline Phosphatase 104 U/L (38-126); Blood Urea Nitrogen 27 mg/dl (9-20); Calcium 7.7 mg/dl (8.4-10.2); Carbon Dioxide 22 mmol/L (22-30); Chloride 106 mmol/L (98-107); Estimated Creatinine Clearance 57 ml/min; Glucose 113 mg/dl (70-99); Potassium 4.4 mmol/L (3.5-5.1); Sodium 137 mmol/L (135-145); Total Bilirubin 0.8 mg/dl (0.2-1.3); eGFR 58.01
[2024-04-20] MEDS: CLEOCIN 50 IV (05:11)
[2024-04-20] MEDS: LR 1000 IV (05:11)
--- NOTE | 2024-04-20 06:15 | CON.INTV ---
Consultation
Consultation Request
Date/Time Consultation Requested: 04/20/24
Date/Time Consultation Performed: 04/20/24
Performing Provider: Clement
Reason for Consultation: Sepsis
Medical History
-
History of Present Illness:
Patient is a 73-year-old male with previous history of hypertension, COPD, A-fib presenting to ER with bleeding from left lower extremity. He underwent wound debridement earlier on the day of admission and has been bleeding since mid afternoon.
In the ER hemoglobin was 11.4 but patient was notably hypotensive, systolic in the 80s with accompanying leukocytosis, tachypnea. UA possibly demonstrating UTI. He was placed on pressors. Admitted to ICU for septic shock.
Past Medical History
Past Medical History: Other (see other list)
Social History
Tobacco: Former Smoker
Alcohol: None
Drug: None
Family History
Family History: Reviewed & Not Pertinent
Allergies / Home Medications
Allergies
Allergy/AdvReac Type Severity Reaction Status Date / Time
No Known Allergies Allergy Verified 11/19/22 12:59
Home Medications
�Medication �Instructions �Recorded �Confirmed �Last Taken �Type
escitalopram oxalate 20 mg tablet 20 mg PO DAILY Depression 11/14/14 04/19/24 06/27/21 20:00 History
apixaban 5 mg tablet (Eliquis) 5 mg PO BID Blood clot 06/28/21 04/19/24 Unknown History
prevention/tx
acetaminophen 325 mg tablet 650 mg PO Q4HPRN PRN mild 09/15/22 04/19/24 Unknown History
pain/temp>100
gabapentin 800 mg tablet 800 mg PO TID Pain 09/15/22 04/19/24 Unknown History
trazodone 50 mg tablet 25 mg PO HS Sleep 03/13/24 04/19/24 Unknown History
oxycodone 10 mg tablet 10 mg PO DAILY Pain #5 tabs 03/17/24 04/19/24 Unknown Rx
morphine 30 mg tablet,extended 30 mg PO BID Pain 04/19/24 04/19/24 Unknown History
release (MS Contin)
ondansetron HCl 4 mg tablet 4 mg PO Q6HPRN PRN nausea/vomiting 04/19/24 04/19/24 Unknown History
oxycodone 10 mg tablet 10 mg PO Q6HPRN PRN breakthrough 04/19/24 04/19/24 Unknown History
pain
Review of Systems
-
History Source: Patient
All other systems: Negative unless noted
Vitals / Labs / Diagnostic Testing
Vital Signs
Temp Pulse Resp BP Pulse Ox
98.5 F 82 29 88/56 96
04/20/24 03:25 04/20/24 06:00 04/20/24 06:00 04/20/24 06:00 04/20/24 06:00
Lab Data
04/20/24 03:34
04/20/24 03:34
Laboratory Results
04/19/24
17:49
PT 21.4 H
INR 1.81
APTT 38.5 H
Microbiology
04/19/24 18:39 Nasal Swab Influenza Types A & B (AKSHAT) - Final
Negative for Influenza A & B, NAAT
Negative results must be combined with clinical observations
and patient history.
Nucleic Acid Amplification test (NAAT)performed on the
[employer] NOW platform.
04/19/24 17:49 Nasal Swab Influenza Types A & B (AKSHAT) - Final
Test repeatedly invalid.
Nucleic Acid Amplification test (NAAT)performed on the
[employer] NOW platform.
Diagnostic Testing:
Physical Exam
-
HEENT: Normocephalic, Anicteric and Moist Mucous Membranes
Cardiovascular: S1/S2 and Regular Rhythm
Respiratory: Clear and Non-Labored Respirations
GI: Soft, Non Distended and Non Tender
Neurology: Awake, Alert, Oriented and No Motor Deficits
Skin: Warm, Dry and Good Color
General: Comfortable and Other (NAD)
Assessment
-
Patient is a 73-year-old male with previous history of hypertension, COPD, A-fib presenting to ER with bleeding from left lower extremity. He underwent wound debridement earlier on the day of admission and has been bleeding since mid afternoon.
In the ER hemoglobin was 11.4 but patient was notably hypotensive, systolic in the 80s with accompanying leukocytosis, tachypnea. UA possibly demonstrating UTI. He was placed on pressors. Admitted to ICU for septic shock.
Septic shock on pressors
UTI
Bleeding LE s/p recent debridement 04/19/24
Hyperkalemia
Leukocytosis
Acute blood loss on chronic anemia, hemoglobin 9
CYNTHIA, creatinine 1.6 (BL 0.7�0.9)
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
GERD
Left elbow septic bursitis s/p debridement
Ventral hernia
Cellulitis left leg
Left ankle surgery with hardware
Bilateral knee replacement
GI bleed--duodenal ulcer
Smoker
History of Staphylococcus aureus bacteremia
Infection of prosthetic right knee joint
Spacer in right knee
Atrial fibrillation
COPD
Hypertension
Depression
Chronic lymphedema
Chronic pain syndrome on Roxicodone and MS Contin at home
Insomnia
Obesity, BMI 30
Plan
No current signs of metabolic encephalopathy or MS changes/following commands
Denies pain at this time. Has history of chronic pain on large doses of narcotics
At risk for central/obstructive apnea, monitor
Trazodone can be held
Pain/sedation: PRN
RASS goals: 0
Hemodynamically unstable, on low dose pressor
Requiring pressors: levo @2, titrate to off
Cardiac history reviewed--HTN/AFib
Prior ECHO reviewed indicating stable function, 2014--may need updated study
Hold home meds for now while hypotensive
Monitor on telemetry
Oxygen needs: stable on RA
Prior history of lung disease: COPD, no prior PFTs for review
Can add inhalers/nebs if needed
Supplemental O2 as indicated to maintain sats > 89%
CXR/CT reviewed indicating no acute process
Suspect JOI, OP HST recommended
Advance diet
Hospital Medicine Director recommendations
Aspiration precautions, HOB > 30 degrees
Speech therapy eval can be considered if at elevated risk
GI prophylaxis if indicated for mechanical ventilation >48 hours, prior history of GERD, stress ulcer formation in the critically ill
CYNTHIA present--trending down, likely ATN
Creat at baseline, no history of renal disease
Void trials
Follow urine output, critical I/Os
Replete electrolytes as needed
Increased WBC on presentation, suspect underlying UTI
UA reflex to culture sent
Started on empiric antibiotics
Cultures sent/pending
Blood
Urine
MRSA
Follow fever trend, WBC count
CBC stable, no signs of bleeding or coagulopathy.
DVT prophylaxis as assessed based on risk, including mechanical SCDs
Can transfuse if indicated for Hb <7, plt < 10
INR WNL
No prior h/o diabetes or thyroid disease
Monitor accuchecks PRN/SS coverage if needed
Check HbA1c
If doing well off pressors, can likely transfer to floors. No active pulm issues. We will arrange OP f/u and sign off upon transfer.
Diagnostic Data
Chest X-Ray: 04/19/24-Stable appearance of the chest, as described. No superimposed acute cardiopulmonary process appreciated.
CT Scan: LE 04/19/24- Severe diffuse muscle atrophy with fatty replacement involving all compartments of the distal left lower extremity. At the level of the mid to distal tibia and fibula, there is confluent dermal and subcutaneous soft tissue
thickening posterior lateral to the fibula, with a few tiny air bubbles superimposed on the superficial soft tissues. This likely represents the patient's known wound. There is also dermal and subcutaneous soft tissue thickening anterior to the
tibial margin. As far as visualized, no superficial or deep focal collection is identified, given limitations from lack of intravenous contrast. The cortical margins of the osseous structures appear intact. No erosion or radiolucency to suggest bony
destruction. No periosteal reaction.
Echo: 08/06/14-Normal left ventricular chamber size. Normal left ventricular systolic function. Normal regional wall motion. Top normal left ventricular wall thickness. Left ventricular ejection fraction is 55-60%. Mitral valve opens normally. Mild
mitral regurgitation. Trileaflet, sclerotic aortic valve with adequate excursion. Mild - moderate aortic regurgitation. Structurally normal tricuspid valve. Mild tricuspid regurgitation. Estimated pulmonary artery pressure of 25-30 mmHg. No
intracardiac mass or thrombus formation seen. Compared to the previous TTE echo 01/03/2014 there is no significant change
PFT's:
Reports and relevant images were personally reviewed.
Critical Care time 60 mins -- The patient is admitted for acute critical illness for the treatment of vital organ failure and/or prevention of further life-threatening conditions. Total care includes time spent in review of history, physical exam,
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
[2024-04-20 06:36] LABS: Absolute Neutrophils -Man Diff 24.2 10^3/uL (1.4-6.5); Band Neutrophils 12 % (0-3); Eosinophils 1 % (0-6); Lymphocytes 9 % (20-51); Monocytes 1 % (2-9); Segmented Neutrophils 77 % (42-75)
[2024-04-20 06:37] LABS: Anisocytosis 1+; Hypersegmented Neutrophil 1+; Normal RBC Morphology No; Platelets Checked Yes; Total Cells Counted 100; Toxic Granulation 1+
--- NOTE | 2024-04-20 07:42 | PHA.VAN.FU ---
Vancomycin Assessment / Plan
- Assessment
Renal Function: SCR Decreasing (1.6-->1.3)
WBC's are: Trending Down
In the past 24 hrs, patient has been: Afebrile
Concomitant Antimicrobials: clindamycin
- Assessment - Therapeutic Drug Monitoring
Random Level: 14.8 - drawn ~8.5H after 2g loading dose
- Dosing Plan
Dosing by Level: Re-dose today (Vanc 1500mg)
- Monitoring Plan
Random Level: 04/21 600
- Follow Up
Pharmacy will continue to follow.
Vancomycin Follow UP
- -
Patient Age: 73
Patient Sex: Male
Vancomycin Day #: 2
Indication: Skin And Soft Tissue
Requesting Provider: Mikaela Santiago
Pertinent Antimicrobial Allergies:
NKDA
Height / Weight:
Height 6 ft 1 in
Actual Weight 104.4 kg
Pertinent Past Medical History: BMI ~30
- Vital Signs / Lab Results
Temp Pulse Resp BP Pulse Ox
98.3 F 82 29 88/56 96
04/20/24 07:35 04/20/24 06:00 04/20/24 06:00 04/20/24 06:00 04/20/24 06:00
Lab Results - Hematology
04/19/24 04/20/24
17:11 03:34
WBC 29.0 H 27.3 H
Band Neutrophils 12 H
Lab Results - Chemistry
04/19/24 04/20/24 04/20/24
17:11 03:34 03:34
BUN 27 H 26 H 27 H
Creatinine 1.6 H 1.3
Estimated Creat Clear 46
Albumin 3.3 L
04/20/24 04/20/24
03:34 03:34
BUN
Creatinine 1.3
Estimated Creat Clear 57 57
Albumin 2.6 L
04/19/24 04/20/24
17:49 03:34
Lactic Acid 2.4 H 1.2
Lab Results - Urine
04/19/24
17:49
Urine Nitrite (Reflex) Positive A
Leukocyte Esterase Rfl 2+ A
Ur Squamous Epith Cells 0-2
Microbiology Results
04/19/24 18:39 Influenza Types A & B (AKSHAT) - Final
Nasal Swab Negative for Influenza A & B, NAAT
Negative results must be combined with clinical observations
and patient history.
Nucleic Acid Amplification test (NAAT)performed on the
[employer] ID NOW platform.
04/19/24 17:49 Influenza Types A & B (AKSHAT) - Final
Nasal Swab Test repeatedly invalid.
Nucleic Acid Amplification test (NAAT)performed on the
[employer] NOW platform.
Therapeutic Drug Monitoring
Random Vancomycin 14.8 ug/ml 04/20/24 03:34
--- NOTE | 2024-04-20 08:34 | CON.ID ---
Consultation
-
Date/Time Consultation Requested: 04/19/24 23:36
Date/Time Consultation Performed: 04/20/28 8:38
Requesting Provider: Pamela ARCHIBALD
Performing Provider: Dr Angel
Reason for Consultation: chronic left lower leg wound
Chief Complaint / Past History
Chief Complaint
bleeding from wound
History of Present Illness
Mr Ortiz is a 73 year old male with history of COPD, bilateral lower extremity lymphedema who presented here yesterday. Has a chronic wound of the L lower extemtity same day he had debridement of a chronic wound which has been present for
several months. He cannot clarify when the wound first occurred, how many months it has been present. He is getting wound care at [facility]. He has a subacute cough for a few weeks, productive of white sputum, his roommate recently had a URI
and covid was ruled out.
Since arrival here he has been afebrile, bp hypotensive requiring pressors max dose of levophed 3 mcg/min, wbc initially 29 now 27, hgb on arrival 11.4 consistent with 1 month ago, this am 9.7, plt 240, L shift is noted, cr baseline 0.8 on arrival
1.6 and today 1.3, crp 168, lactic acid peaked at 2.4 and now downtrending, CT lower extr SQ wound soft tissue thickening with tiny air bubbles, no focal collection - limited study as no contrast given, no evidence of osteomyelitis, CXR: no
infiltrates, chronic L to R shift, mrsa screen in progress, blood cultures x2 in progress no growth to date. Necrotizing fasciitis was considered and patient was started on vancomycin, zosyn and clindamycin.
Past History
Additional Past Medical History:
hypertension
COPD
a-fib
lymphedema of b/l lower extremities
depression
neuropathy
insomnia
Hx GI bleed
Additional Past Surgical History:
History of MSSA left olecranon bursitis (2009) s/p I+D
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
L TKA
wound debridement
Allergy History:
No Known Allergies Allergy (Verified 11/19/22 12:59)
Medications Reviewed: Yes
Social History
Tobacco: Former Smoker (50+ year history)
Alcohol: None
Drug: None
Family History
Family History: Not Pertinent
Review of Systems
Review of Systems
General: Negative Fever or Chills
All systems: All other systems were reviewed and were negative (except as listed in hpi)
Vital Signs
Temp Pulse Resp BP Pulse Ox
98.3 F 82 29 88/56 96
04/20/24 07:35 04/20/24 06:00 04/20/24 06:00 04/20/24 06:00 04/20/24 06:00
Physical Exam
Physical Exam
Constitutional: No Acute Distress and Chronically Ill
Cardiovascular: Regular Rate and S1/S2; Negative Murmur or Rub
Pulmonary: Clear and Symmetric; Negative Wheezes, Rales or Rhonchi
Gastrointestinal: Soft, Non Tender, Non Distended and Normal Bowel Sounds
Skin: Warm and Dry; Negative Rash or Jaundice
Wound: Other (posterior L calf wound - no erythema, warmth, drainage, crepitus, bullae or odor. hematoma overlying the wound. no probe to bone)
Lab / Diagnostic Study Results
04/20/24 03:34
04/20/24 03:34
Abs Immat Gran (auto) 0.3 10^3/uL (0-0.05) H 04/19/24 17:11
Absolute Neuts (auto) 25.1 10^3/uL (1.4-6.5) H 04/19/24 17:11
Absolute Lymphs (auto) 1.5 10^3/uL (1.2-3.4) 04/19/24 17:11
Absolute Monos (auto) 2.0 10^3/uL (0.1-0.6) H 04/19/24 17:11
Absolute Basos (auto) 0.1 10^3/uL (0-0.2) 04/19/24 17:11
Total Counted 100 04/20/24 03:34
Immature Gran % 1.0 % (0-0.5) H 04/19/24 17:11
Neutrophils % 86.6 % (42.2-75.2) H 04/19/24 17:11
Lymphocytes % 5.3 % (20.5-51.1) L 04/19/24 17:11
Monocytes % 6.9 % (1.7-9.3) 04/19/24 17:11
Eosinophils % 0.0 % (0-6) 04/19/24 17:11
Basophils % 0.2 % (0-2) 04/19/24 17:11
Abs Neuts (Manual) 24.2 10^3/uL (1.4-6.5) H 04/20/24 03:34
Segmented Neutrophils 77 % (42-75) H 04/20/24 03:34
Band Neutrophils 12 % (0-3) H 04/20/24 03:34
Lymphocytes (Manual) 9 % (20-51) L 04/20/24 03:34
Eosinophils (Manual) 1 % (0-6) 04/20/24 03:34
PT 21.4 Sec (11.4-14.6) H 04/19/24 17:49
INR 1.81 04/19/24 17:49
Lactic Acid 1.2 mmol/L (0.7-2.0) 04/20/24 03:34
C-Reactive Protein 168.70 mg/L (0.0-10.00) H 04/19/24 17:11
Procalcitonin 5.40 ng/ml (0.0-0.25) H* 04/19/24 17:49
Ur Squamous Epith Cells 0-2 /LPF (Few) 04/19/24 17:49
Microbiology Results
Micro:
04/19/24 17:49 Blood Culture - Pending
Blood/Venous
04/19/24 17:49 Blood Culture - Pending
Blood/Venous
04/19/24 22:56 MRSA Screen - Pending
Nose
04/19/24 17:49 Urine Culture - Pending
Urine
04/19/24 18:39 Influenza Types A & B (AKSHAT) - Final
Nasal Swab Negative for Influenza A & B, NAAT
Negative results must be combined with clinical observations
and patient history.
Nucleic Acid Amplification test (NAAT)performed on the
[employer] NOW platform.
04/19/24 17:49 Influenza Types A & B (AKSHAT) - Final
Nasal Swab Test repeatedly invalid.
Nucleic Acid Amplification test (NAAT)performed on the
[employer] NOW platform.
Assessment / Plan
Septic Shock
Gram negative bacteremia - possibly anaerobic
Possibly UTI vs Aspiration Pneumonia
CYNTHIA
- repeat blood cultures x2
- follow for ID of the GNR
- wound is not infected and not the source of bacteremia - patient does not have signs or symptoms of necrotizing fasciitis.
- UA with pyuria, though no significant symptoms reported, patient is a poor historian
- possibly an anaerobe, follow for ID
- continue zosyn
- stop vancomycin and clindamycin
pressors have been stopped,
Care Review
Plan reviewed with: Physician (Dr Del Rosario)
[2024-04-20] MEDS: LEXAPRO 20 MG PO (08:35)
[2024-04-20] MEDS: NEURONTIN 300 MG PO ×3 (08:35→21:16)
[2024-04-20] MEDS: HEPARIN 5000 UNITS SC ×3 (08:35→23:04)
[2024-04-20] MEDS: TYLENOL 650 MG PO ×2 (08:37→17:51)
[2024-04-20] MEDS: ZOSYN 100 IV ×3 (08:37→19:11)
--- NOTE | 2024-04-20 08:57 | CON.GS ---
Consultation
-
Reason for Consultation: Left lower extremity bleeding
Medical History
-
Chief Complaint: Left lower extremity bleeding
History of Present Illness:
Patient is a 73-year-old male who resides in a fdc facility. States he has had a chronic left lower extremity wound and he underwent bedside debridement at his fdc facility yesterday. After this procedure reports bleeding
at debridement site which was persistent prompting emergency department evaluation and overnight admission.
He denies significant acute pain and offers no additional specific concerns or questions.
Past Medical History
Past Surgical History: Other (Hypertension, COPD, A-fib, chronic bilateral lower extremity lymphedema, depression, neuropathy,)
Social History
Tobacco: Former Smoker
Alcohol: None
Living: Assisted Living
Allergies / Home Medications
Allergy/AdvReac Type Severity Reaction Status Date / Time
No Known Allergies Allergy Verified 11/19/22 12:59
�Medication �Instructions �Recorded �Confirmed �Type
escitalopram oxalate 20 mg tablet 20 mg PO DAILY Depression 11/14/14 04/19/24 History
apixaban 5 mg tablet (Eliquis) 5 mg PO BID Blood clot 06/28/21 04/19/24 History
prevention/tx
acetaminophen 325 mg tablet 650 mg PO Q4HPRN PRN mild 09/15/22 04/19/24 History
pain/temp>100
gabapentin 800 mg tablet 800 mg PO TID Pain 09/15/22 04/19/24 History
trazodone 50 mg tablet 25 mg PO HS Sleep 03/13/24 04/19/24 History
oxycodone 10 mg tablet 10 mg PO DAILY Pain #5 tabs 03/17/24 04/19/24 Rx
morphine 30 mg tablet,extended 30 mg PO BID Pain 04/19/24 04/19/24 History
release (MS Contin)
ondansetron HCl 4 mg tablet 4 mg PO Q6HPRN PRN nausea/vomiting 04/19/24 04/19/24 History
oxycodone 10 mg tablet 10 mg PO Q6HPRN PRN breakthrough 04/19/24 04/19/24 History
pain
Review of Systems
-
All other systems: Negative unless noted
A 10 point review of systems was completed, and was negative except as per HPI.
Physical Exam
Vital Signs
Temp Pulse Resp BP Pulse Ox
98.3 F 82 29 88/56 96
04/20/24 07:35 04/20/24 06:00 04/20/24 06:00 04/20/24 06:00 04/20/24 06:00
04/19/24 04/20/24 04/21/24
06:59 06:59 06:59
Actual Weight 104.4 kg
Body Mass Index (BMI) 30.4
Lab Results
04/20/24 03:34
04/20/24 03:34
WBC 27.3 10^3/uL (4.8-10.8) H 04/20/24 03:34
Hgb 9.7 g/dL (13.0-18.0) L 04/20/24 03:34
Hct 31.2 % (39.0-52.0) L 04/20/24 03:34
Plt Count 240 10^3/uL (130-400) 04/20/24 03:34
Abs Immat Gran (auto) 0.3 10^3/uL (0-0.05) H 04/19/24 17:11
Neutrophils % 86.6 % (42.2-75.2) H 04/19/24 17:11
Physical Exam
General: No Apparent Distress, Comfortable and Other (Elderly male, chronically ill-appearing)
HEENT: Normocephalic and Anicteric
Respiratory: Non Labored Respirations
Cardiac: Irregular Rhythm
Skin: Other (Left lower extremity dressing removed: Chronic lymphedema, hemostatic Gelfoam adherent to wound bed without active bleeding. No surrounding erythema, no malodor,)
Psych: Calm
Assessment / Plan
-
Assessment: 73-year-old male with reported bleeding/oozing status post debridement left lower extremity wound at his fdc facility while on Eliquis.
No significant active cellulitis visible, no palpable crepitus, Gelfoam hemostatic pad in place without active bleeding -did not remove; no surrounding devitalized tissue, skin necrosis, no malodorous drainage.
No significant clinical signs of skin/soft tissue infection to require acute surgical debridement. No ongoing bleeding with Gelfoam in place.
CT left lower extremity imaging personally reviewed and interpreted as well as radiologist report. Chronic edema throughout subcutaneous and soft tissue/muscular tissue planes. No subcutaneous or deeper soft tissue air/gas.
Plan: Leave current Gelfoam dressing in place today and continue Abhay wrap.
Hold oral therapeutic anticoagulation today
Will remove gel from dressing tomorrow and reassess chronic wound site/bleeding source
No plans for operative debridement at this point. Diet as tolerated.
Further care per medical services
Reviewed surgical plan with patient and nursing staff at bedside
--- NOTE | 2024-04-20 09:01 | W.PN.HOSP.TC ---
Today's Communication/Plan
-
A cappella
Mucinex
Sputum culture
Antibiotics per ID
Resume diet
Assessment / Plan
Assessment / Plan
Gen-AAOx3, NAD
HEENT-NC, AT, anicteric, clear oral mm
Neck-supple
CV-reg, no M, +S1/S2
Lungs-clear B/L
Abd-soft, NT, ND
Ext-no edema
Musculoskeletal-no cyanosis, clubbing
Skin-warm and dry, left lateral leg wound with adherent clot
Neuro-grossly non-focal
Psych-calm, cooperative
CYNTHIA -suspect due to sepsis, ATN. Continue IV fluids. Renal function improving.
Septic shock -source unclear but differential diagnosis includes UTI versus pneumonia. Discussed with ID, left leg wound unlikely to be source. CT of left leg noted. 1 blood culture positive for gram-negative bacilli.
Levophed weaned off. Resume diet. Monitor leukocytosis.
Left leg wound -debrided at bedside by general surgery this morning. Unlikely to be source of infection per ID.
Hyponatremia -resolved.
Hyperkalemia -resolved.
Permanent atrial fibrillation -Eliquis on hold per surgery request due to bleeding left leg wound. Resume when okay with surgical service.
Chronic normocytic anemia -stable.
Chronic pain syndrome/chronic opiate dependence
History of GI bleed
Anxiety/depression
Full code -patient was DNR on last hospitalization, currently he wants to remain a full code.
Dispo -back to [facility] when medically stable.
Anticipated Discharge: > 48 hours
Subjective/Interval History
-
Date of Service: April 20, 2024
Patient seen/examined, complaining mild nausea.
Objective Data
-
Labs:
Laboratory Results
04/20/24 04/20/24 04/20/24
03:34 03:34 03:34
WBC 27.3 H
Hgb 9.7 L
Hct 31.2 L
Plt Count 240
Sodium 138 137
Potassium 4.5 4.4
Chloride 106
Carbon Dioxide
BUN
Creatinine
Glucose
Calcium
Total Bilirubin
AST
ALT
Alkaline Phosphatase
04/20/24 04/20/24 04/20/24
03:34 03:34 03:34
WBC
Hgb
Hct
Plt Count
Sodium
Potassium
Chloride 106
Carbon Dioxide 22 22
BUN 26 H 27 H
Creatinine 1.3
Glucose
Calcium
Total Bilirubin
AST
ALT
Alkaline Phosphatase
04/20/24 04/20/24 04/20/24
03:34 03:34 03:34
WBC
Hgb
Hct
Plt Count
Sodium
Potassium
Chloride
Carbon Dioxide
BUN
Creatinine 1.3
Glucose 111 H 113 H
Calcium 7.6 L 7.7 L
Total Bilirubin 0.8
AST 17
ALT 10
Alkaline Phosphatase 104
Vital Signs:
Vital Signs
Temp Pulse Resp BP Pulse Ox
98.3 F 82 29 88/56 96
04/20/24 07:35 04/20/24 06:00 04/20/24 06:00 04/20/24 06:00 04/20/24 06:00
I&O
04/19/24 04/20/24 04/21/24
06:59 06:59 06:59
Intake Total 958.9 / 958.9
Output Total 280 / 280
Balance 678.9 / 678.9
Review of Systems
-
History Source: Patient
All other systems: Reviewed and negative
--- NOTE | 2024-04-20 09:55 | PTCARENOTE ---
recd handoff in room, gtts confirmed, titrating as noted. assessed. at 0800, skin warm though temp not registering high, refusing rectal, see documentation. skin warm, med wtih tylenol per request as noted. cheeks flushed. Seen by Drs. Ordonez
Elizabeth Del Rosario. cultures in progress. wound care per verbal instructions Dr. Ordonez then Dr. Johnson, adaptic then silicone border form, elevated on air pillow.
[2024-04-20] MEDS: MUCINEX 600 MG PO ×2 (10:21→19:11)
[2024-04-20 11:07] LABS: Glycohemoglobin (HgbA1c) 5.6 % (4.0-5.6)
[2024-04-20] MEDS: VANCOCIN 530 MG IV (11:47)
--- NOTE | 2024-04-20 12:00 | PTCARENOTE ---
levophed restarted, see VS, keeping MAP >65 per orders. ate small amount with encouragement, notes appetite poor. had requested zofran earlier, 12 lead obtained, now denies need. pleasant and cooperative. condom cath replaced, holding, attends
applied.
--- NOTE | 2024-04-20 16:49 | PTCARENOTE ---
repositioned, poor appetite. encouraged PO fluids, both water and stephanie tessie at bedside. IV fluids capped. levophed remains off. refusing oral care. turned to R with encouragement. no further bleeding L calf.
[2024-04-20] MEDS: ZOFRAN 4 MG IV (17:50)
[2024-04-20] MEDS: ROXICODONE 10 MG PO (17:50)
--- NOTE | 2024-04-20 17:59 | PTCARENOTE ---
temp high, med as noted for pain, nausea, temp. I/O collected, appetite poor, encouraged as able.
[2024-04-20] MEDS: DESYREL 25 MG PO (21:16)
[2024-04-21] VITALS (40 sets, daily range): BP systolic 78–143; BP diastolic 52–84; BMI 30.3
[2024-04-21] MEDS: ZOSYN 100 IV ×4 (03:00→21:29)
[2024-04-21] MEDS: ROXICODONE 10 MG PO ×2 (03:41→10:10)
[2024-04-21 05:05] LABS: % Basophils 0.3 % (0-2); % Eosinophils 0.8 % (0-6); % Immature Granulocytes 0.8 % (0-0.5); % Lymphocytes 3.9 % (20.5-51.1); % Monocytes 6.9 % (1.7-9.3); % Neutrophils 87.3 % (42.2-75.2); Absolute Basophils 0.1 10^3/uL (0-0.2); Absolute Eosinophils 0.2 10^3/uL (0-0.7); Absolute Immature Granulocytes 0.1 10^3/uL (0-0.05); Absolute Lymphocytes 0.7 10^3/uL (1.2-3.4); Absolute Monocytes 1.3 10^3/uL (0.1-0.6); Hematocrit 30.6 % (39.0-52.0); Hemoglobin 9.8 g/dL (13.0-18.0); Mean Corpuscular Volume 84.3 fL (80.0-94.0); Mean Platelet Volume 9.3 fL (7.4-10.4); Nucleated Red Blood Cells % 0 % (-); Platelet Count 239 10^3/uL (130-400); Red Blood Cell Count 3.63 10^6/uL (4.70-6.10); Red Cell Dist. Width 16.2 % (11.5-14.5); White Blood Cell Count 18.4 10^3/uL (4.8-10.8)
[2024-04-21 05:24] LABS: Vancomycin Random 16.9 ug/ml
[2024-04-21 05:27] LABS: ALT (SGPT) < 10 U/L (0-50); AST (SGOT) 16 U/L (17-59); Albumin 2.6 g/dl (3.5-5.0); Alkaline Phosphatase 108 U/L (38-126); Blood Urea Nitrogen 29 mg/dl (9-20); Carbon Dioxide 25 mmol/L (22-30); Chloride 105 mmol/L (98-107); Estimated Creatinine Clearance 76 ml/min; Glucose 123 mg/dl (70-99); Potassium 4.2 mmol/L (3.5-5.1); Sodium 138 mmol/L (135-145); Total Bilirubin 0.7 mg/dl (0.2-1.3); eGFR > 60.00
--- NOTE | 2024-04-21 05:45 | PTCARENOTE ---
received pt from [facility], assessments completed and charted, patient awake and verbal offering no c/o pain or discomfort, Left leg elevated on air pillow, foam dressing reinforced with kerlix as there are no dressing orders as of yet,
patient has poor appetite, at less than 25% of dinner. levo remains off as MAP has been greater than 65. patient has been afebrile.
--- NOTE | 2024-04-21 05:47 | PTCARENOTE ---
levo restarted for few hours, patient started at 2 for a map of 60.
--- NOTE | 2024-04-21 05:48 | PTCARENOTE ---
levo off by 0 - map has maintained between 65-70, patient has coarse wet, non productive cough, encouraged him to cough and clear secretions
condom cath (21) intact and patent for yellow urine. labs drawn and sent, no new orders at this time.
--- NOTE | 2024-04-21 07:32 | W.PN.INTV ---
Today's Communication / Plan
Recommendations
Doing well today, off pressors--continue midodrine
Change opiate regiment to prevent w/d
ABx per ID, prelim GNB bacteremia, further w/u per team including YANIRA
PT/OT, OOB
Transfer to floors today if remains stable, we will sign off upon transfer
Assessment
-
Patient is a 73-year-old male with previous history of hypertension, COPD, A-fib presenting to ER with bleeding from left lower extremity. He underwent wound debridement earlier on the day of admission and has been bleeding since mid afternoon.
In the ER hemoglobin was 11.4 but patient was notably hypotensive, systolic in the 80s with accompanying leukocytosis, tachypnea. UA possibly demonstrating UTI. He was placed on pressors. Admitted to ICU for septic shock.
Septic shock on pressors
GNB bacteremia
UTI
Bleeding LE s/p recent debridement 04/19/24
Hyperkalemia
Leukocytosis
Acute blood loss on chronic anemia, hemoglobin 9
CYNTHIA, creatinine 1.6 (BL 0.7�0.9)
Possible opiate w/d
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
GERD
Left elbow septic bursitis s/p debridement
Ventral hernia
Cellulitis left leg
Left ankle surgery with hardware
Bilateral knee replacement
GI bleed--duodenal ulcer
Smoker
History of Staphylococcus aureus bacteremia
Infection of prosthetic right knee joint
Spacer in right knee
Atrial fibrillation
COPD
Hypertension
Depression
Chronic lymphedema
Chronic pain syndrome on Roxicodone and MS Contin at home
Insomnia
Obesity, BMI 30
Plan
No current signs of metabolic encephalopathy or MS changes/following commands
Denies pain at this time. Has history of chronic pain on large doses of narcotics
At risk for central/obstructive apnea, monitor
Trazodone can be held
Pain/sedation: PRN, add scheduled oxy to prevent w/d
RASS goals: 0
Hemodynamically stable, weaned off pressor
Cardiac history reviewed--HTN/AFib
Prior ECHO reviewed indicating stable function, 2014--may need updated study
Hold home meds for now while hypotensive
Monitor on telemetry
Oxygen needs: stable on RA
Prior history of lung disease: COPD, no prior PFTs for review
Can add inhalers/nebs if needed
Supplemental O2 as indicated to maintain sats > 89%
CXR/CT reviewed indicating no acute process
Suspect JOI, OP HST recommended
Advance diet
Scan Coordinator recommendations
Aspiration precautions, HOB > 30 degrees
Speech therapy eval can be considered if at elevated risk
GI prophylaxis if indicated for mechanical ventilation >48 hours, prior history of GERD, stress ulcer formation in the critically ill
CYNTHIA present--trending down, likely ATN
Creat at baseline, no history of renal disease
Void trials
Follow urine output, critical I/Os
Replete electrolytes as needed
Increased WBC on presentation, suspect underlying UTI
UA reflex to culture sent
Started on empiric antibiotics
Cultures sent/pending
Blood + prelim GNB
Urine + GNB
MRSA neg
Follow fever trend, WBC count
ID consult placed
CBC stable, no signs of bleeding or coagulopathy.
DVT prophylaxis as assessed based on risk, including mechanical SCDs
Can transfuse if indicated for Hb <7, plt < 10
INR WNL
No prior h/o diabetes or thyroid disease
Monitor accuchecks PRN/SS coverage if needed
Check HbA1c --5.6
Diagnostic Data
Chest X-Ray: 04/19/24-Stable appearance of the chest, as described. No superimposed acute cardiopulmonary process appreciated.
CT Scan: LE 04/19/24- Severe diffuse muscle atrophy with fatty replacement involving all compartments of the distal left lower extremity. At the level of the mid to distal tibia and fibula, there is confluent dermal and subcutaneous soft tissue
thickening posterior lateral to the fibula, with a few tiny air bubbles superimposed on the superficial soft tissues. This likely represents the patient's known wound. There is also dermal and subcutaneous soft tissue thickening anterior to the
tibial margin. As far as visualized, no superficial or deep focal collection is identified, given limitations from lack of intravenous contrast. The cortical margins of the osseous structures appear intact. No erosion or radiolucency to suggest bony
destruction. No periosteal reaction.
Echo: 08/06/14-Normal left ventricular chamber size. Normal left ventricular systolic function. Normal regional wall motion. Top normal left ventricular wall thickness. Left ventricular ejection fraction is 55-60%. Mitral valve opens normally. Mild
mitral regurgitation. Trileaflet, sclerotic aortic valve with adequate excursion. Mild - moderate aortic regurgitation. Structurally normal tricuspid valve. Mild tricuspid regurgitation. Estimated pulmonary artery pressure of 25-30 mmHg. No
intracardiac mass or thrombus formation seen. Compared to the previous TTE echo 01/03/2014 there is no significant change
PFT's:
Reports and relevant images were personally reviewed.
Critical Care time 35 mins -- The patient is admitted for acute critical illness for the treatment of vital organ failure and/or prevention of further life-threatening conditions. Total care includes time spent in review of history, physical exam,
medications, hemodynamic/ventilator parameters, laboratory data, imaging and discussion with house staff, pharmacy, respiratory therapy, systems analyst, and nursing.
Subjective Dataa
Subjective Data
Date of Service:
Date of Service: April 21, 2024
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
Subjective:
No new events ON, remains off pressors
No new complaints
Objective Data
Data Reviewed
Vital Signs / I&O / Oxygen:
Vital Signs
Temp Pulse Resp BP Pulse Ox
98.8 F 79 28 89/56 93
04/21/24 00:30 04/21/24 06:45 04/21/24 06:45 04/21/24 06:30 04/21/24 06:45
Intake and Output
04/20/24 04/21/24 04/22/24
06:59 06:59 06:59
Intake Total 958.9 / 1091.4 2293.9 / 2293.9
Output Total 280 / 280 1625 / 1625
Balance 678.9 / 811.4 668.9 / 668.9
SaO2 93
Physical Exam
General: Comfortable and Other (NAD)
HEENT: Normocephalic, Anicteric and Moist Mucous Membranes
Cardiovascular: S1-S2 and Regular Rhythm
Respiratory: Clear and Non-Labored Respirations
GI: Soft, Non Distended and Non Tender
Neurology: Awake, Alert, Oriented, No Motor Deficits and Depressed
Skin: Warm, Dry and Good Color
Labs/Micro/Reports
Lab Data
04/21/24 04:46
04/21/24 04:46
Microbiology
04/19/24 17:49 Blood/Venous Blood Culture - Preliminary
No Growth in 24 hours- Final report to follow
04/19/24 17:49 Blood/Venous Blood Culture - Preliminary
Escherichia coli
04/19/24 17:49 Blood/Venous Gram Stain - Preliminary
04/19/24 18:39 Nasal Swab Influenza Types A & B (AKSHAT) - Final
Negative for Influenza A & B, NAAT
Negative results must be combined with clinical observations
and patient history.
Nucleic Acid Amplification test (NAAT)performed on the
[employer] NOW platform.
04/19/24 17:49 Nasal Swab Influenza Types A & B (AKSHAT) - Final
Test repeatedly invalid.
Nucleic Acid Amplification test (NAAT)performed on the
[employer] NOW platform.
--- NOTE | 2024-04-21 07:34 | W.PN.HOSP.TC ---
Today's Communication/Plan
-
Continue antibiotics
Wean down Levophed
Midodrine 3 times daily
Ensure 3 times daily
PT/OT
Assessment / Plan
Assessment / Plan
Gen-AAOx3, NAD
HEENT-NC, AT, anicteric, clear oral mm
Neck-supple
CV-reg, no M, +S1/S2
Lungs-clear B/L
Abd-soft, NT, ND
Ext-no edema
Musculoskeletal-no cyanosis, clubbing
Skin-warm and dry, left lateral leg wound with adherent clot
Neuro-grossly non-focal
Psych-calm, cooperative
CYNTHIA -suspect due to sepsis, ATN. Renal function improving, creatinine down to 1.1.
Septic shock -sepsis due to UTI. 1 blood culture positive for E. coli, sensitivity pending. Continue IV Zosyn. Repeat blood cultures pending. Still somewhat hypotensive, requiring 1 mcg/min Levophed. Start midodrine, wean off Levophed.
Discussed with nursing. WBCs trending down. Last fever 101.7 �F, 04/20 afternoon.
Left leg wound -debrided at bedside by general surgery. Unlikely to be source of infection per ID.
Hyponatremia -resolved.
Hyperkalemia -resolved.
Permanent atrial fibrillation -Eliquis on hold per surgery request due to bleeding left leg wound. Resume when okay with surgical service.
Chronic normocytic anemia -stable. Hemoglobin 9.8 today.
Chronic pain syndrome/chronic opiate dependence -in the halfway he is on MS Contin 30 mg twice daily, oxycodone 10 mg daily, and 10 mg every 6 hours as needed. In the hospital he is on oxycodone 10 mg every 6 hours as needed.
History of GI bleed
Anxiety/depression
Full code -patient was DNR on last hospitalization, currently he wants to remain a full code.
Ambulatory dysfunction -baseline uses a walker. Consult PT/OT.
Dispo -back to halfway when medically stable.
Anticipated Discharge: > 48 hours
Subjective/Interval History
-
Date of Service: April 21, 2024
Patient seen and examined. No complaints. Does have poor appetite.
Objective Data
-
Labs:
Laboratory Results
04/21/24
04:46
WBC 18.4 H
Hgb 9.8 L
Hct 30.6 L
Plt Count 239
Sodium 138
Potassium 4.2
Chloride 105
Carbon Dioxide 25
BUN 29 H
Creatinine 1.1
Glucose 123 H
Calcium 8.0 L
Total Bilirubin 0.7
AST 16 L
ALT < 10
Alkaline Phosphatase 108
Vital Signs:
Vital Signs
Temp Pulse Resp BP Pulse Ox
98.8 F 79 28 89/56 93
04/21/24 00:30 04/21/24 06:45 04/21/24 06:45 04/21/24 06:30 04/21/24 06:45
I&O
04/20/24 04/21/24 04/22/24
06:59 06:59 06:59
Intake Total 958.9 / 1091.4 2293.9 / 2293.9
Output Total 280 / 280 1625 / 1625
Balance 678.9 / 811.4 668.9 / 668.9
Review of Systems
-
History Source: Patient
All other systems: Reviewed and negative
[2024-04-21] MEDS: ProAmatine 5 MG PO ×3 (08:13→17:33)
[2024-04-21] MEDS: LEXAPRO 20 MG PO (08:13)
[2024-04-21] MEDS: HEPARIN 5000 UNITS SC ×3 (08:13→23:17)
[2024-04-21] MEDS: NEURONTIN 300 MG PO ×3 (08:13→21:38)
[2024-04-21] MEDS: MUCINEX 600 MG PO ×2 (08:13→20:28)
[2024-04-21] MEDS: ZOFRAN 4 MG IV ×2 (08:14→15:49)
--- NOTE | 2024-04-21 09:34 | PTCARENOTE ---
report received. assessments per work list. paitent received with [email or web address]. IV site leaking. new IV inserted. patient c/o nausea. medicated with Zofran. lungs with coarse breath sounds bilaterally. diminished. nonproductive cough. monitor afib.
patient with condom cath in place. incontinent large amount stool. initially extra large formed soft, followed by liquid stool. fecal incontinence bag applied. dressing intact left lower leg. +3 pitting edema legs, +2 trunk. call wong in reach. VAT
team updated re: leaking IV with Levophed. warm compress applied per instruction. call wong in reach
--- NOTE | 2024-04-21 09:41 | W.PN.ID1 ---
Addendum entered and electronically signed by Lea Angel MD 04/21/24 15:05:
colonized with c diff
primary prophylaxis with oral vanc prescribed
probiotics
enhanced precautions
Original Note:
Date of Service
Date of Service: April 21, 2024
Today's Communication
c/w zosyn, deescalate PRN with sensitivities
Assessment / Plan
Septic Shock
E coli bacteremia
Possibly UTI vs Aspiration Pneumonia; GI also a possible source
CYNTHIA
- repeat blood cultures x2
- 04/19 blood culture E coli in one set
- urine culture is pending
- UA with pyuria, though no significant symptoms reported, patient is a poor historian
- sputum culture if able to obtain one - acapella
- continue zosyn pending sensitivities
pressors have been stopped, however remains on midodrine
Chief Complaint
-: Bacteremia and Other (shock)
Subjective / Review of Systems
fevers ongoing tmax 101.7 orally
bp stable weaned off of pressors early this am, now on midodrine
liquid stool noted
Vital Signs / Physical Exam
Vital Signs
Vital Signs
Temp Pulse Resp BP Pulse Ox
98.4 F 84 29 112/79 92
04/21/24 08:00 04/21/24 09:30 04/21/24 09:30 04/21/24 09:15 04/21/24 09:30
Physical Exam
Constitutional: No Acute Distress and Chronically Ill
Cardiovascular: Regular Rate and S1/S2; Negative Murmur or Rub
Pulmonary: Clear and Symmetric; Negative Wheezes or Rales
Gastrointestinal: Soft, Non Tender, Non Distended and Normal Bowel Sounds
Skin: Warm and Dry; Negative Rash or Jaundice
Objective Data
Lab Data
Lab Results
04/21/24 04:46
04/21/24 04:46
PT 21.4 Sec (11.4-14.6) H 04/19/24 17:49
INR 1.81 04/19/24 17:49
APTT 38.5 Sec (23.4-35.0) H 04/19/24 17:49
Estimated Creat Clear 76 ml/min 04/21/24 04:46
Lactic Acid 1.2 mmol/L (0.7-2.0) 04/20/24 03:34
Total Bilirubin 0.7 mg/dl (0.2-1.3) 04/21/24 04:46
AST 16 U/L (17-59) L 04/21/24 04:46
ALT < 10 U/L (0-50) 04/21/24 04:46
Alkaline Phosphatase 108 U/L (38-126) 04/21/24 04:46
C-Reactive Protein 168.70 mg/L (0.0-10.00) H 04/19/24 17:11
Most recent labs reviewed.
wbc improved
L shift stable
Micro Results:
04/19/24 22:56 MRSA Screen - Final
Nose No Methicillin Resistant Staphylococcus aureus isolated.
04/19/24 17:49 Blood Culture - Preliminary
Blood/Venous Escherichia coli
Gram Stain - Preliminary
04/19/24 17:49 Blood Culture - Preliminary
Blood/Venous No Growth in 24 hours- Final report to follow
04/20/24 10:17 Blood Culture - Pending
Blood/Venous
04/20/24 11:11 Blood Culture - Pending
Blood/Venous
04/19/24 17:49 Urine Culture - Pending
Urine
04/19/24 18:39 Influenza Types A & B (AKSHAT) - Final
Nasal Swab Negative for Influenza A & B, NAAT
Negative results must be combined with clinical observations
and patient history.
Nucleic Acid Amplification test (NAAT)performed on the
[employer] platform.
04/19/24 17:49 Influenza Types A & B (AKSHAT) - Final
Nasal Swab Test repeatedly invalid.
Nucleic Acid Amplification test (NAAT)performed on the
[employer] platform.
[2024-04-21] MEDS: ROXICODONE PO (10:26)
--- NOTE | 2024-04-21 10:58 | CM ---
CM following re: discharge planning.
Reviewed pt's chart, met with pt.
Pt is a 73 year old male, admitted with primary dx of Sepsis.
Patient reports he has been a LTC resident at [facility] for about a year, on Medicaid 15 day bed hold. Pt reports he uses a wheelchair or walker for ambulation. Pt reports he has no children, has supportive friend Kerline and she has POA. Pt
expressed his desire to return back to [facility] SNF.
PCP: Anival Correia.
Pharmacy: [facility].
D/C plan: return back to [facility] for a LTC.
CM will follow with discharge plan updates as hospitalization progresses.
--- NOTE | 2024-04-21 12:10 | PTCARENOTE ---
patient reassessed.fecal pouch leaking. trumpet inserted. remains off levophed. very poor appetite. refusing breakfast and lunch. encouraged to take sips of ensure. hospitalist updated re stools. poor oral intake
[2024-04-21] MEDS: COMPAZINE 5 MG IV ×2 (12:54→20:26)
[2024-04-21] MEDS: ROXICODONE 5 MG PO ×4 (15:23→23:17)
[2024-04-21] MEDS: VISBIOME 2 CAP PO (15:24)
--- NOTE | 2024-04-21 15:54 | PTCARENOTE ---
downgrade to tele. ID updated with results. placed on enhanced precautions. Dr cortez and WOC RN at bedside. wound care provided. premedicated with prn dose oxycodone. medicated with prn zofran and compazine per JERRY. rectal trumpet remains in
place, patent, no leakage
--- NOTE | 2024-04-21 16:00 | WOUNDNOTE ---
LEFT LATERAL LEG WOUND 1950, [id number]
--- NOTE | 2024-04-21 16:10 | WOUNDNOTE ---
[facility] RN note: Patient admitted with sepsis due to DTI, newly debrided left LE with active bleeding
See H&P for complete history.
PMH: Afib, anemia, chronic pain syndrome, anxiety/depression, COPD
Wound Location and type/assessment: Patient admitted with left lateral venous appearing wound. Patient reports wound was debrided at facility and bleeding persisted which prompted transfer to [facility] (patient is on [facility]). Surgery has been
following with patient. Dr. Ordonez removed Gelfoam today. Wound was clean with a moderate amount of serosanguineous drainage. No odor noted. Sacrum and heels intact.
Appetite: Fair
Pressure redistribution devices in place: Centrella Max Air, turning schedule, heels off-loaded
Plan: Local wound care provided with adatpic, mesalt, saravanan and NEDRA wrap. Will confirm orders with hospitalist and update nurse. Updated care plan and will follow as needed. Will follow peripherally.
--- NOTE | 2024-04-21 16:14 | W.PN.GS2 ---
Addendum entered and electronically signed by Spenser Ordonez MD 04/21/24 16:59:
Patient seen and examined with nurse practitioner. Agree with documented progress note.
Wound care nurse at bedside as well as patient's ICU nurse
Patient offers no complaints or questions
Left lower extremity dressing removed. Clean, granulating, no significant sloughing, no necrotic tissue, no significant eschars. No surrounding erythema. No fluctuance. No malodorous drainage.
No active bleeding, old clot easily removed without stirring up more bleeding.
Assessment/plan: Chronic left lower extremity wound without acute infectious complication
Local wound care -nonadherent dressing, Mesalt for exudate, Kerlix and wrap
Resume therapeutic anticoagulation tomorrow a.m.
Signing off
Please call if further concerns or questions requiring wound reevaluation.
Original Note:
Today's Communication / Plan
-
Local wound care
Assessment / Plan
-
73 yo male with h/o afib on Eliquis and chronic lymphedema presenting with sepsis/ecoli bacteremia and undergoing medical management in ICU. Seen by surgery team as he had noted oozing and bleeding from chronic wound which was recently debridement
on 04/19/24 at [facility]. CT imaging of the LLE with chronic edema but no concerning acute findings.
Gelfoam dressing removed at bedside today without further bleeding noted. 2 shallow wounds noted without evidence of infection/purulence. Granulating tissue to wound bed.
Chronic anemia with acute blood loss anemia, h/h now stable
--Continue local wound care with adaptic and Mesalt dressing, wrap with Kerlix then nasim wrap daily
--No further debridement warranted at this time
--Ok to resume anticoagulation in AM if continues without further bleeding
Surgery to follow peripherally, please call with questions/concerns
Subjective Data
-
Date of Service: April 21, 2024
Patient seen and examined at bedside with Dr. Ordonez. Denies pain to leg, analgesics given in anticipation of wound care.
Objective Data
-
Intake and Output
04/20/24 04/21/24 04/22/24
06:59 06:59 06:59
Intake Total 958.9 / 1091.4 2293.9 / 2293.9 667.6 / 667.6
Output Total 280 / 280 1625 / 1625 600 / 600
Balance 678.9 / 811.4 668.9 / 668.9 67.6 / 67.6
Intake:
Oral fluids 770 / 770 120 / 120
Amount of oral supplement(s) 240 / 240
consumed
IV fluids (Total) 908.9 / 1041.4 923.9 / 923.9 7.6 / 7.6
Lr 1,000 ml @ 125 mls/hr IV . 875 / 1000 875 / 875
Q8H GYPSY Rx#:[id number]
levo 33.9 / 41.4 48.9 / 48.9 7.6 / 7.6
IV piggybacks 50 / 50 600 / 600 300 / 300
Output:
Urine, Todd 900 / 900
Urine, Voided 280 / 280 725 / 725 600 / 600
Other:
How many times incontinent 1
SATURATED amount urine
Number of unmeasured liquid
stools
Rectum 2
Vital Signs
Temp Pulse Resp BP Pulse Ox
99 F 84 26 116/65 95
04/21/24 15:21 04/21/24 12:54 04/21/24 10:45 04/21/24 12:54 04/21/24 10:45
Lab Results
04/21/24 04:46
04/21/24 04:46
Calcium 8.0 mg/dl (8.4-10.2) L 04/21/24 04:46
Total Bilirubin 0.7 mg/dl (0.2-1.3) 04/21/24 04:46
AST 16 U/L (17-59) L 04/21/24 04:46
ALT < 10 U/L (0-50) 04/21/24 04:46
Alkaline Phosphatase 108 U/L (38-126) 04/21/24 04:46
Total Protein 6.0 g/dl (6.3-8.2) L 04/21/24 04:46
Albumin 2.6 g/dl (3.5-5.0) L 04/21/24 04:46
Physical Exam
-
NAD
LLE with 2 wounds to lateral calf, both clean with granulation tissue, some scab/slough, no active bleeding
--- NOTE | 2024-04-21 17:41 | PTCARENOTE ---
repport to [facility] LENA olmedo. transfer without issue
--- NOTE | 2024-04-21 18:20 | TRANSFER ---
1720 Pt received from ICU via bed. Pt AAOx3. Pt oriented to staff and environment. Personal items and call light within reach.
[2024-04-21] MEDS: FIRVANQ 125 MG PO (20:27)
[2024-04-21] MEDS: DESYREL 25 MG PO (21:38)
[2024-04-21] MEDS: DUONEB 3 ML INH (22:55)
--- NOTE | 2024-04-21 23:45 | PTCARENOTE ---
Pt reported feeling SOB and requesting supplemental O2. SaO2 93% on RA. Placed pt on 2L NC, SaO2 97%. Pt still felt SOB and was tachypnic with coarse lung sounds. Contacted house provider about trying a breathing treatment. Received orders for duo
neb. Pt feels improvement in symptoms s/p duo neb. Will continue to monitor.
[2024-04-22] MEDS: ZOSYN 100 IV ×2 (02:33→09:25)
[2024-04-22 03:00] VITALS: BP 129/70
[2024-04-22] MEDS: ROXICODONE 5 MG PO ×4 (05:30→23:39)
[2024-04-22] MEDS: ZOFRAN 4 MG IV ×3 (06:14→22:43)
[2024-04-22 07:00] VITALS: BP 153/90
[2024-04-22 08:12] LABS: % Basophils 0.4 % (0-2); % Eosinophils 2.9 % (0-6); % Immature Granulocytes 0.5 % (0-0.5); % Lymphocytes 12.6 % (20.5-51.1); % Monocytes 10.2 % (1.7-9.3); % Neutrophils 73.4 % (42.2-75.2); Absolute Eosinophils 0.3 10^3/uL (0-0.7); Absolute Immature Granulocytes 0.1 10^3/uL (0-0.05); Absolute Lymphocytes 1.4 10^3/uL (1.2-3.4); Absolute Monocytes 1.1 10^3/uL (0.1-0.6); Absolute Neutrophils 7.9 10^3/uL (1.4-6.5); Hematocrit 28.9 % (39.0-52.0); Hemoglobin 9.5 g/dL (13.0-18.0); Mean Corp Hgb Conc. 32.9 g/dL (33.0-37.0); Mean Corpuscular Hgb 27.6 pg (27.0-31.0); Mean Platelet Volume 9.9 fL (7.4-10.4); Nucleated Red Blood Cells % 0 % (-); Platelet Count 242 10^3/uL (130-400); Red Blood Cell Count 3.44 10^6/uL (4.70-6.10); Red Cell Dist. Width 16.5 % (11.5-14.5); White Blood Cell Count 10.7 10^3/uL (4.8-10.8)
[2024-04-22 09:12] LABS: ALT (SGPT) < 10 U/L (0-50); AST (SGOT) 16 U/L (17-59); Albumin 2.6 g/dl (3.5-5.0); Alkaline Phosphatase 103 U/L (38-126); Blood Urea Nitrogen 24 mg/dl (9-20); Calcium 7.9 mg/dl (8.4-10.2); Carbon Dioxide 25 mmol/L (22-30); Chloride 105 mmol/L (98-107); Estimated Creatinine Clearance 76 ml/min; Glucose 94 mg/dl (70-99); Sodium 140 mmol/L (135-145); Total Bilirubin 0.4 mg/dl (0.2-1.3); eGFR > 60.00
[2024-04-22] MEDS: HEPARIN 5000 UNITS SC (09:24)
[2024-04-22] MEDS: MUCINEX 600 MG PO ×2 (09:24→22:13)
[2024-04-22] MEDS: FIRVANQ 125 MG PO ×3 (09:24→22:16)
[2024-04-22] MEDS: NEURONTIN 300 MG PO ×3 (09:25→22:13)
[2024-04-22] MEDS: VISBIOME 2 CAP PO (09:25)
[2024-04-22] MEDS: LEXAPRO 20 MG PO (09:25)
[2024-04-22] MEDS: ProAmatine PO (09:42)
[2024-04-22 10:58] VITALS: BP 128/69
--- NOTE | 2024-04-22 11:59 | W.PN.ID1 ---
Date of Service
Date of Service: April 22, 2024
Today's Communication
- switched to ceftriaxone for today; doxycycline 100 mg PO BID tomorrow
- c/w oral vanc increased to QID
Assessment / Plan
E coli bacteremia
UTI due to E coli
Septic Shock - resolved
CYNTHIA
C difficile colonization
- repeat blood cultures x2 today for clearance
- 04/19 & 04/20 blood culture E coli in one set
- urine culture 80 K E coli
- UA with pyuria, though no significant symptoms reported, patient is a poor historian
- switched to ceftriaxone for today; doxycycline 100 mg PO BID tomorrow
- c/w oral vanc increased to QID
follow clinically
Chief Complaint
-: UTI and Bacteremia
Subjective / Review of Systems
afebrile
bp stable off of midodrine
shortness of breath overnight
ongoing diarrhea
Vital Signs / Physical Exam
Vital Signs
Vital Signs
Temp Pulse Resp BP Pulse Ox
98.7 F 69 18 128/69 98
04/22/24 10:58 04/22/24 10:58 04/22/24 10:58 04/22/24 10:58 04/22/24 10:58
Physical Exam
Constitutional: No Acute Distress
Cardiovascular: Regular Rate and S1/S2; Negative Murmur or Rub
Pulmonary: Clear and Symmetric; Negative Wheezes or Rales
Gastrointestinal: Soft, Non Tender, Non Distended and Normal Bowel Sounds
Skin: Warm and Dry; Negative Rash or Jaundice
Objective Data
Lab Data
Lab Results
04/22/24 07:13
04/22/24 07:13
PT 21.4 Sec (11.4-14.6) H 04/19/24 17:49
INR 1.81 04/19/24 17:49
APTT 38.5 Sec (23.4-35.0) H 04/19/24 17:49
Estimated Creat Clear 76 ml/min 04/22/24 07:13
Lactic Acid 1.2 mmol/L (0.7-2.0) 04/20/24 03:34
Total Bilirubin 0.4 mg/dl (0.2-1.3) 04/22/24 07:13
AST 16 U/L (17-59) L 04/22/24 07:13
ALT < 10 U/L (0-50) 04/22/24 07:13
Alkaline Phosphatase 103 U/L (38-126) 04/22/24 07:13
C-Reactive Protein 168.70 mg/L (0.0-10.00) H 04/19/24 17:11
Most recent labs reviewed.
Micro Results:
04/22/24 11:20 Blood Culture - Pending
Blood/Venous
04/20/24 10:17 Blood Culture - Preliminary
Blood/Venous No Growth in 48 hours- Final report to follow
04/19/24 17:49 Blood Culture - Preliminary
Blood/Venous Escherichia coli
Gram Stain - Preliminary
04/19/24 17:49 Blood Culture - Preliminary
Blood/Venous Escherichia coli
Gram Stain - Preliminary
04/20/24 11:11 Blood Culture - Preliminary
Blood/Venous Escherichia coli
Gram Stain - Preliminary
04/19/24 17:49 Urine Culture - Final
Urine Escherichia coli
04/21/24 13:04 Respiratory Culture - Final
Sputum Gram Stain - Final
04/21/24 13:39 C. difficile GDH Antigen & Toxins - Final
Feces/Stool C. difficile antigen positive, toxin negative.
Clostridium difficile present, but toxin not detected.
Patient may be a carrier, colonized with nontoxinogenic
strain or the level of toxin in sample is below detection
limits. This information should be used in conjunction with
the patient's clinical history.
04/19/24 22:56 MRSA Screen - Final
Nose No Methicillin Resistant Staphylococcus aureus isolated.
04/19/24 18:39 Influenza Types A & B (AKSHAT) - Final
Nasal Swab Negative for Influenza A & B, NAAT
Negative results must be combined with clinical observations
and patient history.
Nucleic Acid Amplification test (NAAT)performed on the
[employer] NOW platform.
04/19/24 17:49 Influenza Types A & B (AKSHAT) - Final
Nasal Swab Test repeatedly invalid.
Nucleic Acid Amplification test (NAAT)performed on the
[employer] ID NOW platform.
[2024-04-22] MEDS: ROXICODONE PO (12:05)
--- NOTE | 2024-04-22 12:14 | W.PN.HOSP.TC ---
Today's Communication/Plan
-
Stop midodrine
Continue antibiotics
Assessment / Plan
Assessment / Plan
Gen-AAOx3, NAD
HEENT-NC, AT, anicteric, clear oral mm
Neck-supple
CV-reg, no M, +S1/S2
Lungs-clear B/L
Abd-soft, NT, ND
Ext-no edema
Musculoskeletal-no cyanosis, clubbing
Skin-warm and dry, left lateral leg wound with adherent clot
Neuro-grossly non-focal
Psych-calm, cooperative
CYNTHIA -suspect due to sepsis, ATN. CYNTHIA resolved.
Septic shock - E. coli sepsis due to UTI. Continue ceftriaxone, ID following. Sepsis and shock resolved. Stop midodrine.
Acute diarrhea - hospital-acquired, possibly due to antibiotics. Rectal tube in place. C. difficile study shows antigen positivity, toxin negative. Prophylactic vancomycin ordered.
Left leg wound -debrided at bedside by general surgery. Unlikely to be source of infection per ID.
Hyponatremia -resolved.
Hyperkalemia -resolved.
Permanent atrial fibrillation -okay to resume Eliquis today as per surgical service.
Chronic normocytic anemia -stable. Hemoglobin stable.
Chronic pain syndrome/chronic opiate dependence -in the longterm he is on MS Contin 30 mg twice daily, oxycodone 10 mg daily, and 10 mg every 6 hours as needed. In the hospital he is on oxycodone 5 mg every 6 hours [id number] and 5 mg
every 4 hours as needed.
History of GI bleed
Anxiety/depression
Full code -patient was DNR on last hospitalization, currently he wants to remain a full code.
Ambulatory dysfunction -baseline uses a walker. Patient refusing PT and OT in the hospital.
Dispo -back to longterm when medically stable.
Anticipated Discharge: > 48 hours
Subjective/Interval History
-
Date of Service: April 22, 2024
Patient seen and examined. Complaining of not getting enough Italian fries.
Objective Data
-
Labs:
Laboratory Results
04/22/24
07:13
WBC 10.7
Hgb 9.5 L
Hct 28.9 L
Plt Count 242
Sodium 140
Potassium 4.0
Chloride 105
Carbon Dioxide 25
BUN 24 H
Creatinine 1.1
Glucose 94
Calcium 7.9 L
Total Bilirubin 0.4
AST 16 L
ALT < 10
Alkaline Phosphatase 103
Vital Signs:
Vital Signs
Temp Pulse Resp BP Pulse Ox
98.7 F 69 18 128/69 98
04/22/24 10:58 04/22/24 10:58 04/22/24 10:58 04/22/24 10:58 04/22/24 10:58
I&O
04/21/24 04/22/24 04/23/24
06:59 06:59 06:59
Intake Total 2293.9 / 2293.9 667.6 / 667.6 1160 / 1160
Output Total 1625 / 1625 1200 / 1200 900 / 900
Balance 668.9 / 668.9 -532.4 / -532.4 260 / 260
Review of Systems
-
History Source: Patient
All other systems: Reviewed and negative
[2024-04-22] MEDS: ROCEPHIN 2000 MG IV (13:02)
[2024-04-22] MEDS: STERILE WATER FOR INJECTION 20 ML IV (13:02)
[2024-04-22] MEDS: COMPAZINE IV (13:05)
[2024-04-22 13:19] VITALS: BMI 30.3
[2024-04-22 15:00] VITALS: BP 134/73
--- NOTE | 2024-04-22 16:01 | PTCARENOTE ---
PT alert able to make needs known. PT with [facility]C pain management. pain is zero at this time. PT refusing to work with PT and is staying in bed. .pt turned q 2 hours and has refused to get oob. PT on enhanced precautions for CDIFF. pt on Vanco PO and
took that without trouble IV Zosyn ordered and gi jeannette. PT foudn with 2 liters of oxygen. Placed on room air was 98% on room air oxygen kept off. Pt asked for oxygen i educated him on reasons he did not need it. 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
frequent cough course BS. Tele with AFIB /flutter in 70-80s, DHS irregular +1 edema weak pedal pulses. rectal tube intact and draining liquid stool Condom cath maintained with celeste clear urine. PT turned and repositined q 2 hours and heels elevated
on pillows.
[2024-04-22] MEDS: COMPAZINE 5 MG IV (18:31)
[2024-04-22] MEDS: DUONEB 3 ML INH (18:55)
[2024-04-22 19:35] VITALS: BP 121/74
[2024-04-22] MEDS: ELIQUIS 5 MG PO (22:13)
[2024-04-22] MEDS: DESYREL 25 MG PO (22:13)
[2024-04-22] MEDS: FLUSH (NSS) 2 FLUSH IV ×2 (22:21→22:43)
[2024-04-22 23:45] VITALS: BP 114/66
[2024-04-23] VITALS (8 sets, daily range): BP systolic 112–146; BP diastolic 69–85; PULSE 87; O2SAT 97
[2024-04-23] MEDS: VIBRAMYCIN 100 MG PO ×2 (07:29→17:21)
[2024-04-23] MEDS: ROXICODONE 5 MG PO ×3 (07:29→19:03)
[2024-04-23] MEDS: MUCINEX 600 MG PO ×2 (07:29→20:31)
[2024-04-23] MEDS: VISBIOME 2 CAP PO (07:29)
[2024-04-23] MEDS: NEURONTIN 300 MG PO ×3 (07:30→22:30)
[2024-04-23] MEDS: LEXAPRO 20 MG PO (07:30)
[2024-04-23] MEDS: ELIQUIS 5 MG PO ×2 (07:30→20:29)
[2024-04-23] MEDS: FIRVANQ 125 MG PO ×4 (07:31→22:29)
[2024-04-23] MEDS: COMPAZINE 5 MG IV (07:49)
--- NOTE | 2024-04-23 12:08 | W.PN.HOSP.TC ---
Today's Communication/Plan
-
add Imodium
Acapella
Continue antibx
Assessment / Plan
Assessment / Plan
Gen-AAOx3, NAD
HEENT-NC, AT, anicteric, clear oral mm
Neck-supple
CV-reg, no M, +S1/S2
Lungs-clear B/L
Abd-soft, NT, ND
Ext-no edema
Musculoskeletal-no cyanosis, clubbing
Skin-warm and dry, left lateral leg wound with adherent clot
Neuro-grossly non-focal
Psych-calm, cooperative
CYNTHIA -suspect due to sepsis, ATN. CYNTHIA resolved.
Septic shock - E. coli sepsis due to UTI. Sepsis and shock resolved. Off pressors/midodrine. Doxycycline per ID.
Acute diarrhea - hospital-acquired, possibly due to antibiotics. Rectal tube in place. C. difficile study shows antigen positivity, toxin negative. Prophylactic vancomycin ordered. Start Imodium ATC, discussed with ID.
Chronic bronchitis - acapella, discussed with RN & patient. Outpatient follow up. CXR on admission without infiltrate.
Left leg wound -debrided at bedside by general surgery. Unlikely to be source of infection per ID.
Hyponatremia -resolved.
Hyperkalemia -resolved.
Permanent atrial fibrillation -okay to resume Eliquis today as per surgical service.
Chronic normocytic anemia -stable. Hemoglobin stable.
Chronic pain syndrome/chronic [facility]iate dependence [facility] Contin 30 mg twice daily, oxycodone 10 mg daily, and 10 mg every 6 hours as needed. In the hospital he is on oxycodone 5 mg every 6 hours [id number] and 5 mg
every 4 hours as needed.
History of GI bleed
Anxiety/depression
Full code -patient was DNR on last hospitalization, currently he wants to remain a full code.
Ambulatory dysfunction -baseline uses a walker. Patient refusing PT and OT in the hospital.
[facility] when medically [facility]. Waiting for improvement in diarrhea.
Anticipated Discharge: Within 24 hours
Subjective/Interval History
-
Date of Service: April 23, 2024
Patient seen/examined, complaining of cough.
Objective Data
-
Vital Signs:
Vital Signs
Temp Pulse Resp BP Pulse Ox
96.7 F L 84 18 146/75 96
04/23/24 11:00 04/23/24 11:00 04/23/24 11:00 04/23/24 11:00 04/23/24 11:00
I&O
04/22/24 04/23/24 04/24/24
06:59 06:59 06:59
Intake Total 667.6 / 667.6 2490 / 2490
Output Total 1200 / 1200 2600 / 2600
Balance -532.4 / -532.4 -110 / -110
Review of Systems
-
History Source: Patient
All other systems: Reviewed and negative
[2024-04-23] MEDS: IMODIUM 2 MG PO ×2 (12:47→18:16)
[2024-04-23] MEDS: ZOFRAN 4 MG IV (22:07)
[2024-04-23] MEDS: FLUSH (NSS) 2 FLUSH IV (22:08)
[2024-04-23] MEDS: DESYREL 25 MG PO (22:30)
[2024-04-24] MEDS: IMODIUM 2 MG PO ×4 (00:36→18:07)
[2024-04-24] MEDS: ROXICODONE 5 MG PO ×4 (00:36→17:41)
[2024-04-24] MEDS: DUONEB 3 ML INH ×2 (00:56→10:15)
[2024-04-24 03:15] VITALS: BP 125/80
[2024-04-24] MEDS: VIBRAMYCIN 100 MG PO ×2 (06:38→17:08)
[2024-04-24] MEDS: MUCINEX 600 MG PO ×2 (07:26→21:28)
[2024-04-24] MEDS: NEURONTIN 300 MG PO ×3 (07:26→21:28)
[2024-04-24] MEDS: VISBIOME 2 CAP PO (07:26)
[2024-04-24] MEDS: ELIQUIS 5 MG PO ×2 (07:26→21:27)
[2024-04-24] MEDS: FIRVANQ 125 MG PO ×4 (07:27→21:27)
[2024-04-24] MEDS: LEXAPRO 20 MG PO (07:27)
[2024-04-24 07:29] VITALS: BP 123/75
[2024-04-24 09:20] LABS: % Basophils 0.7 % (0-2); % Eosinophils 4.1 % (0-6); % Immature Granulocytes 1.1 % (0-0.5); % Monocytes 14.1 % (1.7-9.3); Absolute Basophils 0.1 10^3/uL (0-0.2); Absolute Eosinophils 0.3 10^3/uL (0-0.7); Absolute Immature Granulocytes 0.1 10^3/uL (0-0.05); Absolute Lymphocytes 1.4 10^3/uL (1.2-3.4); Absolute Neutrophils 4.3 10^3/uL (1.4-6.5); Hematocrit 29.1 % (39.0-52.0); Hemoglobin 9.1 g/dL (13.0-18.0); Mean Corp Hgb Conc. 31.3 g/dL (33.0-37.0); Mean Corpuscular Hgb 27.2 pg (27.0-31.0); Mean Corpuscular Volume 87.1 fL (80.0-94.0); Mean Platelet Volume 9.1 fL (7.4-10.4); Nucleated Red Blood Cells % 0 % (-); Platelet Count 244 10^3/uL (130-400); Red Blood Cell Count 3.34 10^6/uL (4.70-6.10); Red Cell Dist. Width 16.3 % (11.5-14.5); White Blood Cell Count 7.1 10^3/uL (4.8-10.8)
[2024-04-24 09:33] LABS: Blood Urea Nitrogen 15 mg/dl (9-20); Calcium 8.3 mg/dl (8.4-10.2); Carbon Dioxide 30 mmol/L (22-30); Chloride 105 mmol/L (98-107); Estimated Creatinine Clearance 93 ml/min; Glucose 101 mg/dl (70-99); Potassium 3.8 mmol/L (3.5-5.1); Sodium 141 mmol/L (135-145); eGFR > 60.00
--- NOTE | 2024-04-24 09:45 | CM ---
Chart reviewed. Pt is a LTC resident at [facility]. Pt being recommended for skilled rehab at this time
Discussed w/ pt at bedside. Pt states he already gets rehab everyday for about an hour at the facility. Pt states he doesn't want to go to rehab and wants to return to his room and continue w/ the level of rehab he gets.
Elisa/[facility] updated on d/c plan. Per Elisa, pt can return today if he is medically stable
TT hospitalist re d/c status
[facility]
Report: [phone]

Plan: Return to [facility] LTC when medically stable
[2024-04-24 10:55] VITALS: BP 102/80
--- NOTE | 2024-04-24 13:09 | W.PN.HOSP.TC ---
Today's Communication/Plan
-
monitor vitals
see plan
monitor diarrhea
cw abx
Assessment / Plan
Assessment / Plan
Gen-AAOx3, NAD
HEENT-NC, AT, anicteric, clear oral mm
Neck-supple
CV-reg, no M, +S1/S2
Lungs-clear B/L
Abd-soft, NT, ND
Ext-no edema
Musculoskeletal-no cyanosis, clubbing
Skin-warm and dry, left lateral leg wound with adherent clot
Neuro-grossly non-focal
Psych-calm, cooperative
CYNTHIA -suspect due to sepsis, ATN. CYTNHIA resolved.
Septic shock - E. coli sepsis due to UTI. Sepsis and shock resolved. Off pressors/midodrine. Doxycycline per ID.
Acute diarrhea - hospital-acquired, possibly due to antibiotics. Rectal tube in place. C. difficile study shows antigen positivity, toxin negative. Prophylactic vancomycin ordered. Start Imodium ATC, discussed with ID.
Chronic bronchitis - acapella, discussed with RN & patient. Outpatient follow up. CXR on admission without infiltrate.
Left leg wound -debrided at bedside by general surgery. Unlikely to be source of infection per ID.
Hyponatremia -resolved.
Hyperkalemia -resolved.
Permanent atrial fibrillation -okay to resume Eliquis today as per surgical service.
Chronic normocytic anemia -stable. Hemoglobin stable.
Chronic pain syndrome/chronic opiate dependence -in the [facility] he is on MS Contin 30 mg twice daily, oxycodone 10 mg daily, and 10 mg every 6 hours as needed. In the hospital he is on oxycodone 5 mg every 6 hours [id number] and 5 mg
every 4 hours as needed.
History of GI bleed
Anxiety/depression
Full code -patient was DNR on last hospitalization, currently he wants to remain a full code.
Ambulatory dysfunction -baseline uses a walker. Patient refusing PT and OT in the hospital.
Dispo -back to [facility] when medically stable. Waiting for improvement in diarrhea. PT/OT rec rehab however patient wants to return back to long-term care
Anticipated Discharge: 24 - 48 hours
Subjective/Interval History
-
Date of Service: April 24, 2024
Still has diarrhea
Objective Data
-
Labs:
Laboratory Results
04/24/24
09:02
WBC 7.1
Hgb 9.1 L
Hct 29.1 L
Plt Count 244
Sodium 141
Potassium 3.8
Chloride 105
Carbon Dioxide 30
BUN 15
Creatinine 0.9
Glucose 101 H
Calcium 8.3 L
Vital Signs:
Vital Signs
Temp Pulse Resp BP Pulse Ox
98.2 F 86 17 102/80 96
04/24/24 10:55 04/24/24 10:55 04/24/24 10:55 04/24/24 10:55 04/24/24 10:55
I&O
04/23/24 04/24/24 04/25/24
06:59 06:59 06:59
Intake Total 2490 / 2490 1320 / 2040 720 / 720
Output Total 2600 / 2600 950 / 1450 500 / 500
Balance -110 / -110 370 / 590 220 / 220
--- NOTE | 2024-04-24 14:05 | W.PN.ID1 ---
Date of Service
Date of Service: April 24, 2024
Today's Communication
- c/w doxycycline 100 mg PO BID day 6 through 05/02
- c/w oral vanc QID through 05/06
- OK for PRN Imodium
Assessment / Plan
E coli bacteremia
UTI due to E coli
Septic Shock - resolved
CYNTHIA
C difficile colonization
- repeat blood cultures x2 04/22 - no growth at 48 hours
- 04/19 & 04/20 blood culture E coli in one set
- urine culture 80 K E coli
- UA with pyuria, though no significant symptoms reported, patient is a poor historian
- c/w doxycycline 100 mg PO BID day 6 through 05/02
- c/w oral vanc QID through 05/06
- OK for PRN Imodium
follow clinically
Chief Complaint
-: UTI and Bacteremia
Subjective / Review of Systems
afebrile
bp stable
no events overnight
stools soft/loose
rectal tube removed
Vital Signs / Physical Exam
Vital Signs
Vital Signs
Temp Pulse Resp BP Pulse Ox
98.2 F 86 17 102/80 96
04/24/24 10:55 04/24/24 10:55 04/24/24 10:55 04/24/24 10:55 04/24/24 10:55
Physical Exam
Constitutional: No Acute Distress
Cardiovascular: Regular Rate and S1/S2; Negative Murmur or Rub
Pulmonary: Clear and Symmetric; Negative Wheezes or Rales
Gastrointestinal: Soft, Non Tender, Non Distended and Normal Bowel Sounds
Genito-Urinary: Negative Suprapubic Tenderness
Skin: Warm and Dry; Negative Rash or Jaundice
Objective Data
Lab Data
Lab Results
04/24/24 09:02
04/24/24 09:02
PT 21.4 Sec (11.4-14.6) H 04/19/24 17:49
INR 1.81 04/19/24 17:49
APTT 38.5 Sec (23.4-35.0) H 04/19/24 17:49
Estimated Creat Clear 93 ml/min 04/24/24 09:02
Lactic Acid 1.2 mmol/L (0.7-2.0) 04/20/24 03:34
Total Bilirubin 0.4 mg/dl (0.2-1.3) 04/22/24 07:13
AST 16 U/L (17-59) L 04/22/24 07:13
ALT < 10 U/L (0-50) 04/22/24 07:13
Alkaline Phosphatase 103 U/L (38-126) 04/22/24 07:13
C-Reactive Protein 168.70 mg/L (0.0-10.00) H 04/19/24 17:11
Most recent labs reviewed.
Micro Results:
04/22/24 12:06 Blood Culture - Preliminary
Blood/Venous No Growth in 48 hours- Final report to follow
04/22/24 11:20 Blood Culture - Preliminary
Blood/Venous No Growth in 48 hours- Final report to follow
04/20/24 10:17 Blood Culture - Preliminary
Blood/Venous Escherichia coli
Gram Stain - Preliminary
04/19/24 17:49 Blood Culture - Preliminary
Blood/Venous Escherichia coli
Gram Stain - Preliminary
04/19/24 17:49 Blood Culture - Preliminary
Blood/Venous Escherichia coli
Gram Stain - Preliminary
04/20/24 11:11 Blood Culture - Preliminary
Blood/Venous Escherichia coli
Gram Stain - Preliminary
04/19/24 17:49 Urine Culture - Final
Urine Escherichia coli
04/21/24 13:04 Respiratory Culture - Final
Sputum Gram Stain - Final
04/21/24 13:39 C. difficile GDH Antigen & Toxins - Final
Feces/Stool C. difficile antigen positive, toxin negative.
Clostridium difficile present, but toxin not detected.
Patient may be a carrier, colonized with nontoxinogenic
strain or the level of toxin in sample is below detection
limits. This information should be used in conjunction with
the patient's clinical history.
04/19/24 22:56 MRSA Screen - Final
Nose No Methicillin Resistant Staphylococcus aureus isolated.
04/19/24 18:39 Influenza Types A & B (AKSHAT) - Final
Nasal Swab Negative for Influenza A & B, NAAT
Negative results must be combined with clinical observations
and patient history.
Nucleic Acid Amplification test (NAAT)performed on the
[employer] NOW platform.
04/19/24 17:49 Influenza Types A & B (AKSHAT) - Final
Nasal Swab Test repeatedly invalid.
Nucleic Acid Amplification test (NAAT)performed on the
[employer] NOW platform.
[2024-04-24 14:59] VITALS: BP 99/59
[2024-04-24] MEDS: DESYREL 25 MG PO (21:28)
[2024-04-24] MEDS: TYLENOL 650 MG PO (21:34)
[2024-04-24 23:10] VITALS: BP 131/76
[2024-04-25] MEDS: ROXICODONE 5 MG PO ×4 (00:04→17:34)
[2024-04-25] MEDS: IMODIUM 2 MG PO ×4 (00:04→22:08)
[2024-04-25] MEDS: VIBRAMYCIN 100 MG PO ×2 (06:02→17:34)
[2024-04-25 07:27] LABS: Hematocrit 31.1 % (39.0-52.0); Hemoglobin 9.8 g/dL (13.0-18.0); Mean Corp Hgb Conc. 31.5 g/dL (33.0-37.0); Mean Corpuscular Hgb 26.6 pg (27.0-31.0); Mean Corpuscular Volume 84.5 fL (80.0-94.0); Mean Platelet Volume 9.6 fL (7.4-10.4); Platelet Count 310 10^3/uL (130-400); Red Blood Cell Count 3.68 10^6/uL (4.70-6.10); Red Cell Dist. Width 16.4 % (11.5-14.5); White Blood Cell Count 9.9 10^3/uL (4.8-10.8)
[2024-04-25 07:48] VITALS: BP 137/80
[2024-04-25 08:18] LABS: Blood Urea Nitrogen 16 mg/dl (9-20); Calcium 8.3 mg/dl (8.4-10.2); Carbon Dioxide 29 mmol/L (22-30); Chloride 106 mmol/L (98-107); Estimated Creatinine Clearance 93 ml/min; Glucose 101 mg/dl (70-99); Potassium 3.9 mmol/L (3.5-5.1); Sodium 141 mmol/L (135-145); eGFR > 60.00
[2024-04-25] MEDS: VISBIOME 2 CAP PO (09:04)
[2024-04-25] MEDS: LEXAPRO 20 MG PO (09:05)
[2024-04-25] MEDS: MUCINEX 600 MG PO ×2 (09:05→22:10)
[2024-04-25] MEDS: NEURONTIN 300 MG PO ×3 (09:06→22:10)
[2024-04-25] MEDS: ELIQUIS 5 MG PO ×2 (09:06→22:10)
[2024-04-25] MEDS: FIRVANQ 125 MG PO ×4 (09:06→22:10)
--- NOTE | 2024-04-25 09:08 | CM ---
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
[facility]
Report: [phone]

Plan: Return to [facility] when medically stable
[2024-04-25 10:03] LABS: % Basophils 0.8 % (0-2); % Eosinophils 5.6 % (0-6); % Immature Granulocytes 1.6 % (0-0.5); % Lymphocytes 20.1 % (20.5-51.1); % Monocytes 12.1 % (1.7-9.3); % Neutrophils 59.8 % (42.2-75.2); Absolute Basophils 0.1 10^3/uL (0-0.2); Absolute Eosinophils 0.6 10^3/uL (0-0.7); Absolute Immature Granulocytes 0.2 10^3/uL (0-0.05); Absolute Monocytes 1.2 10^3/uL (0.1-0.6); Absolute Neutrophils 5.9 10^3/uL (1.4-6.5); Nucleated Red Blood Cells % 0 % (-)
--- NOTE | 2024-04-25 10:50 | W.PN.ID1 ---
Date of Service
Date of Service: April 25, 2024
Today's Communication
- c/w doxycycline 100 mg PO BID day 6 through 05/02
- c/w oral vanc QID through 05/06
- OK for PRN Imodium
stable for dc from ID perspective
Assessment / Plan
E coli bacteremia
UTI due to E coli
Septic Shock - resolved
CYNTHIA
C difficile colonization
- repeat blood cultures x2 04/22 - no growth at 48 hours
- 04/19 & 04/20 blood culture E coli in one set
- urine culture 80 K E coli
- UA with pyuria, though no significant symptoms reported, patient is a poor historian
- c/w doxycycline 100 mg PO BID day 6 through 05/02
- c/w oral vanc QID through 05/06
- OK for PRN Imodium
stable for dc from ID perspective
Chief Complaint
-: UTI and Bacteremia
Subjective / Review of Systems
afebrile
bp stable
stool soft loose
Vital Signs / Physical Exam
Vital Signs
Vital Signs
Temp Pulse Resp BP Pulse Ox
97.5 F 80 17 137/80 95
04/25/24 07:48 04/25/24 07:48 04/25/24 07:48 04/25/24 07:48 04/25/24 07:48
Physical Exam
Constitutional: No Acute Distress
Cardiovascular: Regular Rate and S1/S2; Negative Murmur or Rub
Pulmonary: Clear and Symmetric; Negative Wheezes or Rales
Gastrointestinal: Soft, Non Tender, Non Distended and Normal Bowel Sounds
Skin: Warm and Dry; Negative Rash or Jaundice
Objective Data
Lab Data
Lab Results
04/25/24 06:01
04/25/24 06:01
PT 21.4 Sec (11.4-14.6) H 04/19/24 17:49
INR 1.81 04/19/24 17:49
APTT 38.5 Sec (23.4-35.0) H 04/19/24 17:49
Estimated Creat Clear 93 ml/min 04/25/24 06:01
Lactic Acid 1.2 mmol/L (0.7-2.0) 04/20/24 03:34
Total Bilirubin 0.4 mg/dl (0.2-1.3) 04/22/24 07:13
AST 16 U/L (17-59) L 04/22/24 07:13
ALT < 10 U/L (0-50) 04/22/24 07:13
Alkaline Phosphatase 103 U/L (38-126) 04/22/24 07:13
C-Reactive Protein 168.70 mg/L (0.0-10.00) H 04/19/24 17:11
Most recent labs reviewed.
Micro Results:
04/22/24 12:06 Blood Culture - Preliminary
Blood/Venous No Growth in 48 hours- Final report to follow
04/22/24 11:20 Blood Culture - Preliminary
Blood/Venous No Growth in 48 hours- Final report to follow
04/20/24 10:17 Blood Culture - Preliminary
Blood/Venous Escherichia coli
Gram Stain - Preliminary
04/19/24 17:49 Blood Culture - Preliminary
Blood/Venous Escherichia coli
Gram Stain - Preliminary
04/19/24 17:49 Blood Culture - Preliminary
Blood/Venous Escherichia coli
Gram Stain - Preliminary
04/20/24 11:11 Blood Culture - Preliminary
Blood/Venous Escherichia coli
Gram Stain - Preliminary
04/19/24 17:49 Urine Culture - Final
Urine Escherichia coli
04/21/24 13:04 Respiratory Culture - Final
Sputum Gram Stain - Final
04/21/24 13:39 C. difficile GDH Antigen & Toxins - Final
Feces/Stool C. difficile antigen positive, toxin negative.
Clostridium difficile present, but toxin not detected.
Patient may be a carrier, colonized with nontoxinogenic
strain or the level of toxin in sample is below detection
limits. This information should be used in conjunction with
the patient's clinical history.
04/19/24 22:56 MRSA Screen - Final
Nose No Methicillin Resistant Staphylococcus aureus isolated.
04/19/24 18:39 Influenza Types A & B (AKSHAT) - Final
Nasal Swab Negative for Influenza A & B, NAAT
Negative results must be combined with clinical observations
and patient history.
Nucleic Acid Amplification test (NAAT)performed on the
[employer] NOW platform.
04/19/24 17:49 Influenza Types A & B (AKSHAT) - Final
Nasal Swab Test repeatedly invalid.
Nucleic Acid Amplification test (NAAT)performed on the
[employer] NOW platform.
[2024-04-25] MEDS: DUONEB 3 ML INH ×2 (12:33→19:29)
--- NOTE | 2024-04-25 12:34 | PTCARENOTE ---
assumed care for this patient from [phone] before getting assigned to different unit. Pt monitored, AM medications administered, Skin care and hourly rounds. reported off to oncoming RN.
[2024-04-25] MEDS: TYLENOL 650 MG PO (12:39)
--- NOTE | 2024-04-25 13:46 | W.PN.HOSP.TC ---
Today's Communication/Plan
-
monitor vitals
see plan
cw abx
PO vanc
hopeful dc tomorrow
monitor BM's with imodium
Assessment / Plan
Assessment / Plan
Gen-AAOx3, NAD
HEENT-NC, AT, anicteric, clear oral mm
Neck-supple
CV-reg, no M, +S1/S2
Lungs-clear B/L
Abd-soft, NT, ND
Ext-no edema
Musculoskeletal-no cyanosis, clubbing
Skin-warm and dry, left lateral leg wound with adherent clot
Neuro-grossly non-focal
Psych-calm, cooperative
CYNTHIA -suspect due to sepsis, ATN. CYNTHIA resolved.
Septic shock - E. coli sepsis due to UTI. Sepsis and shock resolved. Off pressors/midodrine. Doxycycline per ID.
Acute diarrhea - hospital-acquired, possibly due to antibiotics. Rectal tube in place. C. difficile study shows antigen positivity, toxin negative. Prophylactic vancomycin ordered. Start Imodium ATC, discussed with ID.
Chronic bronchitis - acapella, discussed with RN & patient. Outpatient follow up. CXR on admission without infiltrate.
Left leg wound -debrided at bedside by general surgery. Unlikely to be source of infection per ID.
Hyponatremia -resolved.
Hyperkalemia -resolved.
Permanent atrial fibrillation -okay to resume Eliquis today as per surgical service.
Chronic normocytic anemia -stable. Hemoglobin stable.
Chronic pain syndrome/chronic opiate dependence -in the [facility] he is on MS Contin 30 mg twice daily, oxycodone 10 mg daily, and 10 mg every 6 hours as needed. In the hospital he is on oxycodone 5 mg every 6 hours [id number] and 5 mg
every 4 hours as needed.
History of GI bleed
Anxiety/depression
Full code -patient was DNR on last hospitalization, currently he wants to remain a full code.
Ambulatory dysfunction -baseline uses a walker. Patient refusing PT and OT in the hospital.
Dispo -back to [facility] when medically stable. PT/OT rec rehab however patient wants to return back to long-term care
Anticipated Discharge: Within 24 hours
Subjective/Interval History
-
Date of Service: April 25, 2024
has some nausea
Objective Data
-
Labs:
Laboratory Results
04/25/24
06:01
WBC 9.9
Hgb 9.8 L
Hct 31.1 L
Plt Count 310 D
Sodium 141
Potassium 3.9
Chloride 106
Carbon Dioxide 29
BUN 16
Creatinine 0.9
Glucose 101 H
Calcium 8.3 L
Vital Signs:
Vital Signs
Temp Pulse Resp BP Pulse Ox
97.5 F 78 16 137/80 94
04/25/24 07:48 04/25/24 12:36 04/25/24 12:36 04/25/24 07:48 04/25/24 12:36
I&O
04/24/24 04/25/24 04/26/24
06:59 06:59 06:59
Intake Total 1320 / 2040 2040 / 2040
Output Total 950 / 1450 1400 / 1400
Balance 370 / 590 640 / 640
[2024-04-25 15:16] VITALS: BP 110/59
[2024-04-25] MEDS: DESYREL 25 MG PO (22:09)
[2024-04-25 23:20] VITALS: BP 120/79
[2024-04-26] MEDS: ROXICODONE 5 MG PO ×3 (01:23→12:12)
[2024-04-26] MEDS: IMODIUM 2 MG PO ×3 (01:24→12:12)
[2024-04-26] MEDS: VIBRAMYCIN 100 MG PO (06:00)
[2024-04-26 07:07] LABS: Blood Urea Nitrogen 17 mg/dl (9-20); Calcium 8.5 mg/dl (8.4-10.2); Carbon Dioxide 26 mmol/L (22-30); Chloride 107 mmol/L (98-107); Estimated Creatinine Clearance 104 ml/min; Glucose 103 mg/dl (70-99); Hemoglobin 9.7 g/dL (13.0-18.0); Mean Corp Hgb Conc. 31.3 g/dL (33.0-37.0); Mean Corpuscular Hgb 26.3 pg (27.0-31.0); Mean Platelet Volume 9.3 fL (7.4-10.4); Platelet Count 349 10^3/uL (130-400); Potassium 4.4 mmol/L (3.5-5.1); Red Blood Cell Count 3.69 10^6/uL (4.70-6.10); Red Cell Dist. Width 16.7 % (11.5-14.5); Sodium 141 mmol/L (135-145); White Blood Cell Count 9.6 10^3/uL (4.8-10.8); eGFR > 60.00
[2024-04-26 07:15] VITALS: BP 132/82
[2024-04-26 07:44] LABS: Absolute Neutrophils -Man Diff 5.7 10^3/uL (1.4-6.5); Band Neutrophils 13 % (0-3); Normal RBC Morphology Yes; Platelets Checked Yes; Segmented Neutrophils 47 % (42-75); Total Cells Counted 100
[2024-04-26 07:45] LABS: Atypical Lymphocytes 8 %; Eosinophils 3 % (0-6); Lymphocytes 19 % (20-51); Monocytes 10 % (2-9)
[2024-04-26] MEDS: MUCINEX 600 MG PO (08:21)
[2024-04-26] MEDS: FIRVANQ 125 MG PO ×2 (08:21→12:12)
[2024-04-26] MEDS: VISBIOME 2 CAP PO (08:21)
[2024-04-26] MEDS: LEXAPRO 20 MG PO (08:21)
[2024-04-26] MEDS: ELIQUIS 5 MG PO (08:21)
[2024-04-26] MEDS: NEURONTIN 300 MG PO (08:21)
[2024-04-26] MEDS: ZOFRAN 4 MG IV (09:44)
[2024-04-26] MEDS: TYLENOL 650 MG PO (09:45)
[2024-04-26] MEDS: DUONEB 3 ML INH (11:39)
--- NOTE | 2024-04-26 11:39 | W.PN.HOSP.TC ---
Today's Communication/Plan
-
Monitor vital signs see plan
Diarrhea now is much better, Imodium as needed
Continue with antibiotics, p.o. Vanc
dc today
Time of discharge 38 minutes
Assessment / Plan
Assessment / Plan
Gen-AAOx3, NAD
HEENT-NC, AT, anicteric, clear oral mm
Neck-supple
CV-reg, no M, +S1/S2
Lungs-clear B/L
Abd-soft, NT, ND
Ext-no edema
Musculoskeletal-no cyanosis, clubbing
Skin-warm and dry, left lateral leg wound with adherent clot
Neuro-grossly non-focal
Psych-calm, cooperative
CYNTHIA -suspect due to sepsis, ATN. CYNTHIA resolved.
Septic shock - E. coli sepsis due to UTI. Sepsis and shock resolved. Off pressors/midodrine. Doxycycline per ID.
c/w doxycycline 100 mg PO BID through 05/02
- c/w oral vanc QID through 05/06
Acute diarrhea - hospital-acquired, possibly due to antibiotics. Rectal tube in place. C. difficile study shows antigen positivity, toxin negative. Prophylactic vancomycin ordered. Start Imodium ATC, discussed with ID. make imodium prn
Chronic bronchitis - acapella, discussed with RN & patient. Outpatient follow up. CXR on admission without infiltrate.
Left leg wound -debrided at bedside by general surgery. Unlikely to be source of infection per ID.
Hyponatremia -resolved.
Hyperkalemia -resolved.
Permanent atrial fibrillation -okay to resume Eliquis today as per surgical service.
Chronic normocytic anemia -stable. Hemoglobin stable.
Chronic pain syndrome/chronic opiate dependence -in the long term he is on MS Contin 30 mg twice daily, oxycodone 10 mg daily, and 10 mg every 6 hours as needed. In the hospital he is on oxycodone 5 mg every 6 hours [id number] and 5 mg
every 4 hours as needed.
dc back on home regimen
History of GI bleed
Anxiety/depression
Full code -patient was DNR on last hospitalization, currently he wants to remain a full code.
Ambulatory dysfunction -baseline uses a walker. Patient refusing PT and OT in the hospital.
Dispo -back to long term when medically stable. PT/OT rec rehab however patient wants to return back to long-term care. BM now improving.
Anticipated Discharge: Today
Subjective/Interval History
-
Date of Service: April 26, 2024
denies pain
Objective Data
-
Labs:
Laboratory Results
04/26/24
06:25
WBC 9.6
Hgb 9.7 L
Hct 31.0 L
Plt Count 349
Sodium 141
Potassium 4.4
Chloride 107
Carbon Dioxide 26
BUN 17
Creatinine 0.8
Glucose 103 H
Calcium 8.5
Vital Signs:
Vital Signs
Temp Pulse Resp BP Pulse Ox
97.8 F 73 17 132/82 95
04/26/24 07:15 04/26/24 07:15 04/26/24 07:15 04/26/24 07:15 04/26/24 07:15
I&O
04/25/24 04/26/24 04/27/24
06:59 06:59 06:59
Intake Total 2040 / 2040 960 / 960
Output Total 1400 / 1400 800 / 800
Balance 640 / 640 160 / 160
--- NOTE | 2024-04-26 11:42 | W.DCSUMMARY ---
Discharge Summary
Discharge Data
Date of Admission: 04/19/24
Date of Discharge: 04/26/24
-
Pending Results: No
Hospital Course
73-year-old male with past medical history of chronic bronchitis, permanent atrial fibrillation, anemia, chronic pain syndrome, chronic opioid dependence, anxiety/depression, GI bleed, ambulatory dysfunction came to the hospital with septic shock
secondary to E. coli bacteremia. Patient initially required pressors. He was initially started on IV antibiotics which was later transitioned to oral antibiotics. He also developed diarrhea where C. difficile toxin was negative however antigen
was positive. Patient was then started on oral vancomycin. His diarrhea continue to improve with Imodium. He also had left leg wound which was debrided at bedside by general surgery. It did not appear to be infectious in nature. He was
evaluated by physical therapy who recommended SNF however patient wanted to rather return to his alf care facility. Once his diarrhea improves, he was then discharged back to his long-term care facility with instructions to follow-up with all
his physicians outpatient.
Discharge Plan
-
Patient Disposition: Longterm/SNF
Discharge Diagnosis/Procedures: Ehrlichia coli bacteremia
Urinary tract infection
Acute kidney injury
Acute diarrhea
Chronic bronchitis
Diet: As tolerated
Activity: With assistance and As tolerated
Driving Restrictions: Not until seen by your Dr
Bathing Restrictions: None
Activity Restrictions/Additional Instructions:
Wound Care Instructions Left Lower Lateral Leg Wound- Clean with normal saline or soap and water. Apply adaptic and mesalt, wrap with saravanan and NEDRA. Perform daily and PRN drainage.
Follow up at wound care center call for an appointment.
Referrals:
Anival Correia I., DO [Family Provider] - in less than 1 week
Prescriptions:
New
vancomycin 125 mg capsule
125 mg PO QID 11 Days Qty: 44 0RF
doxycycline hyclate 100 mg Capsule
100 mg PO Q12H Qty: 14 0RF
loperamide 2 mg Capsule
2 mg PO Q6H PRN (Reason: loose stool) Qty: 30 0RF
guaifenesin 600 mg Tablet Extended Release 12hr
600 mg PO Q12 Qty: 14 0RF
Lactobac/Bifidobac [Visbiome]
2 cap PO DAILY Qty: 0 0RF
ipratropium-albuterol 0.5 mg-3 mg(2.5 mg base)/3 mL Solution For Nebulization
3 ml inhalation R Q4HPRN PRN (Reason: SOB/Wheezes) Qty: 0 0RF
Continued
escitalopram oxalate 20 MG tablet
20 mg PO DAILY
Eliquis 5 MG tablet
5 mg PO BID
gabapentin 800 mg tablet
800 mg PO TID
acetaminophen 325 MG tablet
650 mg PO Q4HPRN PRN (Reason: mild pain/temp>100)
trazodone 50 mg Tablet
25 mg PO HS
ondansetron HCl 4 mg Tablet
4 mg PO Q6HPRN PRN (Reason: nausea/vomiting)
oxycodone 10 mg tablet
10 mg PO Q6HPRN PRN (Reason: breakthrough pain) Qty: 10 0RF
Changed
morphine [MS Contin] 30 mg tablet extended release
30 mg PO BID Qty: 6 0RF
Discontinued
oxycodone 10 mg Tablet
10 mg PO DAILY Qty: 5 0RF
Discharge Orders:
Discharge Patient (As Directed); Ordered 04/26/24
Ordered By: Nish To
Discharge Date and Time
Discharge Date/Time: 04/26/24 14:34
Print Language: SWEDISH
--- NOTE | 2024-04-26 12:34 | CM ---
Addendum entered by Rajani Tuttle 04/26/24 12:48:
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
Addendum entered by Rajani Tuttle 04/26/24 12:40:
IMM benefit explained; form signed @ [id number]
Original Note:
Plan: Discharge to [facility] via ambulance today
Report # [phone]
--- NOTE | 2024-04-26 12:52 | W.PN.ID1 ---
Date of Service
Date of Service: April 26, 2024
Today's Communication
- c/w doxycycline 100 mg PO BID day 6 through 05/02
- c/w oral vanc QID through 05/06
- OK for PRN Imodium
stable for dc from ID perspective
Assessment / Plan
E coli bacteremia
UTI due to E coli
Septic Shock - resolved
CYNTHIA
C difficile colonization
- repeat blood cultures x2 04/22 - no growth
- 04/19 & 04/20 blood culture E coli in one set
- urine culture 80 K E coli
- UA with pyuria, though no significant symptoms reported, patient is a poor historian
- c/w doxycycline 100 mg PO BID day 6 through 05/02
- c/w oral vanc QID through 05/06
- OK for PRN Imodium
stable for dc from ID perspective
Chief Complaint
-: UTI and Bacteremia
Subjective / Review of Systems
afebrile
bp stable
tolerating current therapies
no complaints
Vital Signs / Physical Exam
Vital Signs
Vital Signs
Temp Pulse Resp BP Pulse Ox
97.8 F 73 16 132/82 96
04/26/24 07:15 04/26/24 11:42 04/26/24 11:42 04/26/24 07:15 04/26/24 11:42
Physical Exam
Constitutional: No Acute Distress
Cardiovascular: Regular Rate and S1/S2; Negative Murmur or Rub
Pulmonary: Clear and Symmetric; Negative Wheezes or Rales
Gastrointestinal: Soft, Non Tender and Non Distended
Skin: Warm and Dry; Negative Rash or Jaundice
Objective Data
Lab Data
Lab Results
04/26/24 06:25
04/26/24 06:25
PT 21.4 Sec (11.4-14.6) H 04/19/24 17:49
INR 1.81 04/19/24 17:49
APTT 38.5 Sec (23.4-35.0) H 04/19/24 17:49
Estimated Creat Clear 104 ml/min 04/26/24 06:25
Lactic Acid 1.2 mmol/L (0.7-2.0) 04/20/24 03:34
Total Bilirubin 0.4 mg/dl (0.2-1.3) 04/22/24 07:13
AST 16 U/L (17-59) L 04/22/24 07:13
ALT < 10 U/L (0-50) 04/22/24 07:13
Alkaline Phosphatase 103 U/L (38-126) 04/22/24 07:13
C-Reactive Protein 168.70 mg/L (0.0-10.00) H 04/19/24 17:11
Most recent labs reviewed.
Micro Results:
04/22/24 12:06 Blood Culture - Preliminary
Blood/Venous No Growth in 4 days- Final report to follow
04/19/24 17:49 Blood Culture - Final
Blood/Venous Escherichia coli
Gram Stain - Final
04/19/24 17:49 Blood Culture - Final
Blood/Venous Escherichia coli
Gram Stain - Final
04/22/24 11:20 Blood Culture - Preliminary
Blood/Venous No Growth in 4 days- Final report to follow
04/20/24 10:17 Blood Culture - Preliminary
Blood/Venous Escherichia coli
Gram Stain - Preliminary
04/20/24 11:11 Blood Culture - Preliminary
Blood/Venous Escherichia coli
Gram Stain - Preliminary
04/19/24 17:49 Urine Culture - Final
Urine Escherichia coli
04/21/24 13:04 Respiratory Culture - Final
Sputum Gram Stain - Final
04/21/24 13:39 C. difficile GDH Antigen & Toxins - Final
Feces/Stool C. difficile antigen positive, toxin negative.
Clostridium difficile present, but toxin not detected.
Patient may be a carrier, colonized with nontoxinogenic
strain or the level of toxin in sample is below detection
limits. This information should be used in conjunction with
the patient's clinical history.
04/19/24 22:56 MRSA Screen - Final
Nose No Methicillin Resistant Staphylococcus aureus isolated.
04/19/24 18:39 Influenza Types A & B (AKSHAT) - Final
Nasal Swab Negative for Influenza A & B, NAAT
Negative results must be combined with clinical observations
and patient history.
Nucleic Acid Amplification test (NAAT)performed on the
[employer] platform.
04/19/24 17:49 Influenza Types A & B (AKSHAT) - Final
Nasal Swab Test repeatedly invalid.
Nucleic Acid Amplification test (NAAT)performed on the
[employer] platform.
--- NOTE | 2024-04-26 13:27 | PTCARENOTE ---
Attempted to call report to [facility]. Call picked up by pathology secretary/transcriptionist, transferred to receiving unit, placed on hold for 5 min and then hung up. Will continue to try to reach facility. Pt scheduled for picking crew supervisor time of 13:45. Pt aaox3, able to make
needs known. Pt made aware of picking crew supervisor time.
== END 2024-04-26 14:34 | DRG 871 ==
LOC: 3 WEST ACU 20:42
PROVIDERS: Nurse Practitioner Family; ADMITTING PHYSICIAN Internal Medicine; ATTENDING PHYSICIAN Internal Medicine; CONSULT PHYSICIAN Student in an Organized Health Care Education/Training Program; EMERGENCY PHYSICIAN Emergency Medicine; FAMILY PHYSICIAN Internal Medicine; OTHER PHYSICIAN Internal Medicine; OTHER PHYSICIAN Surgery
DX: A41.50 Gram-negative sepsis, unspecified (principal); N17.0 Acute kidney failure with tubular necrosis; R65.21 Severe sepsis with septic shock; I48.21 Permanent atrial fibrillation; N39.0 Urinary tract infection, site not specified; E87.1 Hypo-osmolality and hyponatremia; D62 Acute posthemorrhagic anemia; F11.20 Opioid dependence, uncomplicated; A04.72 Enterocolitis due to Clostridium difficile, not specified as recurrent; J44.89 Other specified chronic obstructive pulmonary disease; R19.7 Diarrhea, unspecified; F17.200 Nicotine dependence, unspecified, uncomplicated; Z11.52 Encounter for screening for COVID-19
CPT/HCPCS: 71045; 73700; 80048; 80053; 80202; 81003; 81015; 83036; 83605; 84145; 85025; 85610; 85730; 86140; 87040; 87070; 87077; 87086; 87149; 87186; 87205; 87324; 87449; 87502; 87811; 93005; 94640; 96361; 96365; 96366; 96367; 96368; 96375; 97162; 97166; 99285; 99406

== ENCOUNTER 2024-08-30 09:02 | Inpatient (IN) | payer MEDICARE, OTHER, SELFPAY ==
[2024-08-28 12:19] VITALS: BP 117/63
--- NOTE | 2024-08-28 13:14 | ED.GENMED ---
History of Present Illness
General
Chief Complaint: Skin Problem
Source: patient
Exam Limitations: none
Time Seen by Provider: 08/28/24 13:03
History of Present Illness
History of Present Illness:
See MDM
Past History
Past History
ED Past Medical History: Arrthythmia (afib on Eliquis), HTN and Other (neuropathy, Upper GI bleed, chronic LE edema)
ED Past Surgical History: Orthopedic (Bilateral knee replacements) and Other (gi bleed/operation )
Social History
Tobacco: Smoker
Personal: Single
Living: alone
Phy Exam
Physical Exam
Physical Exam:
See MDM
Course
Orders/Labs/Results
Orders:
Orders
08/28/24 13:08
Morphine Sulfate 4 mg IV NOW STA
08/28/24 13:20
Vancomycin [Vancocin] 2,000 mg 0.9% Sodium Chloride 500 ml [Nss] 500 ml IV NOW
08/28/24 13:49
Basic Metabolic Panel Urgent
Complete Blood Count/With Diff Urgent
Lactic Acid Q4H
Comment: CANCEL 2nd LACTIC ACID IF 1st LACTIC ACID IS LESS THAN 2
08/28/24 17:15
Lactic Acid Q4H
Comment: CANCEL 2nd LACTIC ACID IF 1st LACTIC ACID IS LESS THAN 2
Abnormal Lab Results
08/28/24
13:49
WBC 20.0 H 10^3/uL
(4.8-10.8)
RBC 3.95 L 10^6/uL
(4.70-6.10)
Hgb 10.6 L g/dL
(13.0-18.0)
Hct 32.9 L %
(39.0-52.0)
MCH 26.8 L pg
(27.0-31.0)
MCHC 32.2 L g/dL
(33.0-37.0)
RDW 16.2 H %
(11.5-14.5)
Abs Immat Gran (auto) 0.2 H 10^3/uL
(0-0.05)
Absolute Neuts (auto) 17.5 H 10^3/uL
(1.4-6.5)
Absolute Lymphs (auto) 1.1 L 10^3/uL
(1.2-3.4)
Absolute Monos (auto) 1.2 H 10^3/uL
(0.1-0.6)
Immature Gran % 0.7 H %
(0-0.5)
Neutrophils % 87.5 H %
(42.2-75.2)
Lymphocytes % 5.4 L %
(20.5-51.1)
BUN 42 H mg/dl
(9-20)
Glucose 115 H mg/dl
(70-99)
08/28/24 13:49
08/28/24 13:49
Vital Signs
Initial and Last Documented VS:
Initial Vital Signs
Temp Pulse Resp BP Pulse Ox
98.2 F 86 18 117/63 93
08/28/24 12:19 08/28/24 12:19 08/28/24 12:19 08/28/24 12:19 08/28/24 12:19
Last Documented Vital Signs
Temp Pulse Resp BP Pulse Ox
98.2 F 86 18 117/63 93
08/28/24 12:19 08/28/24 12:19 08/28/24 12:19 08/28/24 12:19 08/28/24 12:19
MDM/Problems Addressed
Differential Diagnosis Includes:
HPI and MDM Narrative:
74-year-old male presenting for evaluation of right foot swelling and blistering of his right heel. He does have chronic wound. He was sent in for evaluation. Patient does acknowledge that he does have worsening pain in his right foot. It is
erythematous with pressure blistering to the heel. Will start vancomycin and ultimately admit
Physical exam
General: Well appearing and non-toxic
HEENT: protecting airway
Neck: appears supple
CV: No evidence of cyanosis
Resp: No accessory muscle use
Abd: Non-distended
Extremities: No deformities
Neuro: alert
Psych: Normal affect
Skin: Chronic wounds to distal aspect of both legs. Right foot erythematous. Cap refill less than 2 seconds. Large blistering to right heel
Problems Addressed including Acute and Chronic Conditions affecting care:
1. Right foot infection
Acuity: acute
Prognosis: stable
Details: Will start IV antibiotics
Updates
Patient found to have white blood cell count of 20. Will admit for IV antibiotics
Differential Diagnosis (but not limited to): Cellulitis, infected blister
Testing considered: Foot x-ray
Drug therapy (if applicable): OTC meds, please see d/c instruction regarding Rx drugs
Amount and/or Complexity of Data Reviewed
Clinical info obtained from: Patient
External data reviewed: N/A
Labs I independently reviewed (but not limited to): White blood cell count elevated, lactic acid normal
Radiology: N/A
Pulse Ox: not hypoxic
EKG independently reviewed: N/A
Hr Clerk: N/A
Critical Care: N/A
Risk of Complication:
Social Determinants of health: Good social support
Discussed with other providers: Hospitalist
Escalation of Care includes Admit/Obs: Given the cellulitis, will admit for IV antibiotics
Occasional wrong word or 'sound a like' substitutions may have occurred due to the inherent limitations of voice recognition software. Read the chart carefully and recognize, using context, where substitutions have occurred.
*Critical Care Note
Total Time (30-74mins, 75-104mins- exclusive of procedures): Not Applicable
ED Attending Note
-
Portions of this chart may have been created with voice recognition software.� Occasional wrong word or��sound alike� substitutions may have occurred due to the inherent limitations of voice recognition software.
Discharge Plan
Departure
Patient Disposition: Admit
Date of Disposition: 08/28/24
Time of Disposition: 14:27
Admit to: Med/Surg
Presentation/result/management discussed w/ accepting MD/DO: Hospitalist
Discharge Problem:
Cellulitis of foot, right
Prescriptions:
No Action
escitalopram oxalate 20 MG tablet
20 mg PO DAILY
Eliquis 5 MG tablet
5 mg PO BID
gabapentin 800 mg tablet
800 mg PO TID
acetaminophen 325 MG tablet
650 mg PO Q4HPRN PRN (Reason: mild pain/temp>100)
trazodone 50 mg Tablet
25 mg PO HS
ondansetron HCl 4 mg Tablet
4 mg PO Q6HPRN PRN (Reason: nausea/vomiting)
ipratropium-albuterol 0.5 mg-3 mg(2.5 mg base)/3 mL Solution For Nebulization
3 ml inhalation R Q4HPRN PRN (Reason: SOB/Wheezes) Qty: 0 0RF
morphine concentrate 100 mg/5 mL (20 mg/mL) Solution
30 mg PO Q12H
oxycodone 5 mg/5 mL Solution
10 mg PO DAILY@1300
diclofenac sodium [Voltaren] 1 % Gel
0 g TOPICAL TID
loperamide 2 mg capsule
2 mg PO Q6HPRN PRN (Reason: loose stool)
Referrals:
Anival Correia DO [Family Provider] -
Interventions
Interventions:
*Risk Screen - Suicide Last Done: 08/28/24 12:19
*General Assessment Last Done: 08/28/24 12:19
*Neglect/Abuse Screening Last Done: 08/28/24 12:22
Discharge Date and Time
Print Language: POLISH
[2024-08-28 13:22] VITALS: BMI 31.7
[2024-08-28] MEDS: VANCOCIN 540 MG IV (13:51)
[2024-08-28] MEDS: MORPHINE SULFATE 4 MG IV (13:52)
[2024-08-28 14:02] LABS: % Basophils 0.2 % (0-2); % Eosinophils 0.2 % (0-6); % Immature Granulocytes 0.7 % (0-0.5); % Lymphocytes 5.4 % (20.5-51.1); % Neutrophils 87.5 % (42.2-75.2); Absolute Immature Granulocytes 0.2 10^3/uL (0-0.05); Absolute Lymphocytes 1.1 10^3/uL (1.2-3.4); Absolute Monocytes 1.2 10^3/uL (0.1-0.6); Absolute Neutrophils 17.5 10^3/uL (1.4-6.5); Hematocrit 32.9 % (39.0-52.0); Hemoglobin 10.6 g/dL (13.0-18.0); Mean Corp Hgb Conc. 32.2 g/dL (33.0-37.0); Mean Corpuscular Hgb 26.8 pg (27.0-31.0); Mean Corpuscular Volume 83.3 fL (80.0-94.0); Mean Platelet Volume 9.8 fL (7.4-10.4); Nucleated Red Blood Cells % 0 % (-); Platelet Count 224 10^3/uL (130-400); Red Blood Cell Count 3.95 10^6/uL (4.70-6.10); Red Cell Dist. Width 16.2 % (11.5-14.5)
[2024-08-28 14:07] LABS: Lactic Acid 0.8 mmol/L (0.7-2.0)
[2024-08-28 14:18] LABS: Blood Urea Nitrogen 42 mg/dl (9-20); Calcium 8.6 mg/dl (8.4-10.2); Carbon Dioxide 26 mmol/L (22-30); Chloride 104 mmol/L (98-107); Estimated Creatinine Clearance 84 ml/min; Glucose 115 mg/dl (70-99); Sodium 135 mmol/L (135-145); eGFR > 60.00
--- NOTE | 2024-08-28 16:27 | HPS.HSE ---
Family Physician
-
Family Physician: Anival Correia
Chief Complaint
-
Foot cellulitis
History of Present Illness
Patient is a 74-year-old gentleman with past medical history significant for atrial fibrillation on Eliquis, hypertension, neuropathy, upper GI bleed, chronic chronic lower extremity edema, chronic bronchitis , anxiety depression, ambulatory
dysfunction, history of admission for septic shock secondary to E. coli bacteremia, chronic wounds to bilateral lower extremities, bilateral knee replacements, who presents to the emergency department from [facility] secondary to right foot
swelling with blisters on his right heel. He has a history of chronic wounds so this is acute on chronic. He was sent in for evaluation. He has redness and pressure that is blistering to the heel.
Laboratory is remarkable for WBC 20.0 BUN 42 creatinine 1.0 glucose 115
ED treatment
Morphine 4 mg IV once
IV vancomycin
Medical History
Past Medical History
Past Medical History: Reports Other
Additional Past Medical History:
hypertension
COPD
a-fib
lymphedema of b/l lower extremities
depression
neuropathy
insomnia
Hx GI bleed
Past Surgical History: Reports Other
Additional Past Surgical History:
bilateral knee replacements
wound debridement
Social History
Tobacco: Former Smoker (quit 1 year ago)
Alcohol: None
Drug: None
Personal: Single
Living: Alone
Employment: Retired
Family History
Family History: Not pertinent
Allergies / Home Medications
Allergies reflects when Allergies were last updated in [employer].
Home Medications with original date entered in [employer]
Allergy/Medication List:
Allergies
Allergy/AdvReac Type Severity Reaction Status Date / Time
No Known Allergies Allergy Verified 11/19/22 12:59
Home Medications
escitalopram oxalate 20 mg tablet 20 mg PO DAILY Depression 11/14/14
apixaban 5 mg tablet (Eliquis) 5 mg PO BID Blood clot prevention/tx 06/28/21
acetaminophen 325 mg tablet 650 mg PO Q4HPRN PRN mild pain/temp>100 09/15/22
gabapentin 800 mg tablet 800 mg PO TID Pain 09/15/22
trazodone 50 mg tablet 25 mg PO HS Sleep 03/13/24
ondansetron HCl 4 mg tablet 4 mg PO Q6HPRN PRN nausea/vomiting 04/19/24
ipratropium 0.5 mg-albuterol 3 mg (2.5 mg base)/3 mL nebulization soln 3 ml inhalation R Q4HPRN PRN SOB/Wheezes #0 mL 04/26/24
diclofenac sodium 1 % topical gel 0 g topical TID right foot 08/28/24
loperamide 2 mg capsule 2 mg PO Q6HPRN PRN loose stool 08/28/24
morphine concentrate 100 mg/5 mL (20 mg/mL) oral solution 30 mg PO Q12H 08/28/24
oxycodone 5 mg/5 mL oral solution 10 mg PO DAILY@1300 08/28/24
Review of Systems
-
A 12 point ROS was completed and negative except as noted: Yes
Physical Exam
Vital Signs
Vital Signs
Temp Pulse Resp BP Pulse Ox
98.2 F 86 18 117/63 93
08/28/24 12:19 08/28/24 12:19 08/28/24 12:19 08/28/24 12:19 08/28/24 12:19
Physical Exam
General: Comfortable, Conversant and Appears Chronically Ill
HEENT: NormoCephalic, Anicteric and Moist mucous membranes
Respiratory: Clear
Cardiac: S1/S2 and Regular Rhythm
GI: Soft, Non Tender, Non Distended and Normal Bowel Sounds
Musculoskeletal: No Clubbing and No Cyanosis
Skin: Warm, Dry and Other (Left lower extremity is wrapped with an Abhay bandage clean dry and intact, right lower extremity has a large blister to the right heel that is painful to palpation associated with redness and swelling in the right foot up
to the knee)
Neuro: AO x 3, No Motor Deficits and Nonfocal/grossly intact
Psych: Calm
Laboratory Results
-
08/28/24 13:49
08/28/24 13:49
Laboratory Results
Lactic Acid Cancelled 08/28/24 17:15
Total Bilirubin Cancelled 08/28/24 13:49
AST Cancelled 08/28/24 13:49
ALT Cancelled 08/28/24 13:49
Alkaline Phosphatase Cancelled 08/28/24 13:49
Impression/Plan
-
IMPRESSION:Patient is a 74-year-old gentleman with past medical history significant for atrial fibrillation on Eliquis, hypertension, neuropathy, upper GI bleed, chronic chronic lower extremity edema, chronic bronchitis , anxiety depression,
ambulatory dysfunction, history of admission for septic shock secondary to E. coli bacteremia, chronic wounds to bilateral lower extremities, bilateral knee replacements, who presents to the emergency department from [facility] secondary to right
foot swelling with blisters on his right heel. He has a history of chronic wounds so this is acute on chronic. He was sent in for evaluation. He has redness and pressure that is blistering to the heel.
Laboratory is remarkable for WBC 20.0 BUN 42 creatinine 1.0 glucose 115
ED treatment
Morphine 4 mg IV once
IV vancomycin
# Right lower extremity cellulitis associated with pressure ulcer to the heel there is a large blood blister, associated with leukocytosis
-Continue with wound care
- Continue IV vancomycin
- Elevate the right lower extremity
- Monitor clinically
Chronic comorbidities are stable
hypertension
COPD
a-fib
lymphedema of b/l lower extremities
depression
neuropathy
insomnia
Hx GI bleed
DVT prophylaxis, he is on Eliquis,will continue
Full code
[2024-08-28] MEDS: TYLENOL 1000 MG PO (17:05)
[2024-08-28 17:38] VITALS: BP 143/76
--- NOTE | 2024-08-28 20:10 | PTCARENOTE ---
Pt received from ED to [facility]2. Pt oriented to room and call wong.
[2024-08-28 20:18] VITALS: BP 138/81; BMI 30.4
[2024-08-28] MEDS: MORPHINE ORAL SOLUTION 30 MG PO (20:38)
[2024-08-28] MEDS: NEURONTIN 800 MG PO (20:38)
[2024-08-28] MEDS: DESYREL 25 MG PO (20:38)
[2024-08-28] MEDS: ELIQUIS 5 MG PO (20:38)
[2024-08-28 20:51] VITALS: BMI 30.4
[2024-08-28] MEDS: TYLENOL 650 MG PO (21:47)
[2024-08-28] MEDS: DICLOFENAC 1% TOPICAL GEL 4 GRAM TOPICAL (21:48)
[2024-08-28 23:48] VITALS: BP 130/73
[2024-08-29 07:00] VITALS: BP 121/70
--- NOTE | 2024-08-29 07:29 | W.PN.HOSP.TC ---
Today's Communication/Plan
-
Continue Vancomycin
Monitor CBC
Assessment / Plan
Assessment / Plan
Physical Exam
General: Comfortable, Conversant and Appears Chronically Ill
HEENT: NormoCephalic, Moist mucous membranes
Respiratory: Clear to Auscultation Bilaterally
Cardiac: S1/S2 and Regular Rhythm
GI: Soft, Non Tender, Non Distended and Normal Bowel Sounds
Musculoskeletal: No Cyanosis
Skin: Warm, Dry and Other (Left lower extremity is wrapped with an Abhay bandage clean dry and intact, right lower extremity has a large blister to the right heel that is painful to palpation associated with redness and swelling in the right foot up
to the knee)
Neuro: AO x 3, No Motor Deficits and Nonfocal/grossly intact
Psych: Calm
Assessment/Plan
74-year-old gentleman with past medical history significant for atrial fibrillation on Eliquis, hypertension, neuropathy, upper GI bleed, chronic chronic lower extremity edema, chronic bronchitis , anxiety depression, ambulatory dysfunction, history
of admission for septic shock secondary to E. coli bacteremia, chronic wounds to bilateral lower extremities, bilateral knee replacements, who presents to the emergency department from [facility] secondary to right foot swelling with blisters on
his right heel. He has a history of chronic wounds so this is acute on chronic. He was sent in for evaluation. He has redness and pressure that is blistering to the heel.
Laboratory is remarkable for WBC 20.0 BUN 42 creatinine 1.0 glucose 115. ED treatment: Morphine 4 mg IV once, IV Vancomycin.
# Right lower extremity cellulitis associated with pressure ulcer to the heel there is a large blood blister, associated with leukocytosis
-Continue with wound care
- Continue IV vancomycin
- Elevate the right lower extremity
- Monitor clinically
- Check lower extremity ultrasound with [facility]
- Follow-up MRSA screen
Chronic comorbidities are stable
hypertension
COPD
a-fib -- continue Eliquis
lymphedema of b/l lower extremities
chronic wounds of the bilateral lower extremities
depression
neuropathy
insomnia
Hx GI bleed
DVT Prophylaxis: continue Eliquis
Code Status: Full code
Anticipated Discharge: > 48 hours
Subjective/Interval History
-
Date of Service: August 29, 2024
Patient was seen and examined. He reported significant pain with dressing changes of his wound on his right foot but otherwise denied any other symptoms or complaints.
Objective Data
-
Labs:
Laboratory Results
08/29/24
07:09
WBC Pending
Hgb Pending
Hct Pending
Plt Count Pending
PT Pending
INR Pending
Sodium Pending
Potassium Pending
Chloride Pending
Carbon Dioxide Pending
BUN Pending
Creatinine Pending
Glucose Pending
Calcium Pending
Total Bilirubin Pending
AST Pending
ALT Pending
Alkaline Phosphatase Pending
Vital Signs:
Vital Signs
Temp Pulse Resp BP Pulse Ox
97.8 F 96 18 130/73 96
08/28/24 23:48 08/28/24 23:48 08/28/24 23:48 08/28/24 23:48 08/28/24 23:48
I&O
08/28/24 08/29/24 08/30/24
06:59 06:59 06:59
Intake Total 240 / 240
Output Total 600 / 600
Balance -360 / -360
[2024-08-29] MEDS: MORPHINE ORAL SOLUTION 30 MG PO ×2 (07:47→19:48)
[2024-08-29] MEDS: ELIQUIS 5 MG PO ×2 (07:47→19:48)
[2024-08-29] MEDS: LEXAPRO 20 MG PO (07:47)
[2024-08-29] MEDS: DICLOFENAC 1% TOPICAL GEL 4 GRAM TOPICAL ×2 (07:47→21:26)
[2024-08-29] MEDS: TYLENOL 650 MG PO (07:48)
[2024-08-29] MEDS: NEURONTIN 800 MG PO ×3 (07:48→21:26)
[2024-08-29 08:09] LABS: INR 1.56; PT 18.9 Sec (11.4-14.6)
[2024-08-29 08:36] LABS: Hematocrit 34.7 % (39.0-52.0); Hemoglobin 11.1 g/dL (13.0-18.0); Mean Corpuscular Hgb 26.8 pg (27.0-31.0); Mean Corpuscular Volume 83.8 fL (80.0-94.0); Mean Platelet Volume 10.1 fL (7.4-10.4); Platelet Count 246 10^3/uL (130-400); Red Blood Cell Count 4.14 10^6/uL (4.70-6.10); Red Cell Dist. Width 16.4 % (11.5-14.5); White Blood Cell Count 21.5 10^3/uL (4.8-10.8)
[2024-08-29 08:50] LABS: ALT (SGPT) 15 U/L (0-50); AST (SGOT) 21 U/L (17-59); Albumin 3.3 g/dl (3.5-5.0); Alkaline Phosphatase 144 U/L (38-126); Blood Urea Nitrogen 36 mg/dl (9-20); Calcium 8.8 mg/dl (8.4-10.2); Carbon Dioxide 23 mmol/L (22-30); Chloride 102 mmol/L (98-107); Estimated Creatinine Clearance 91 ml/min; Glucose 99 mg/dl (70-99); Potassium 4.1 mmol/L (3.5-5.1); Sodium 138 mmol/L (135-145); Total Bilirubin 0.9 mg/dl (0.2-1.3); Total Protein 7.1 g/dl (6.3-8.2); eGFR > 60.00
[2024-08-29 10:01] LABS: % Basophils 0.1 % (0-2); % Immature Granulocytes 0.9 % (0-0.5); % Lymphocytes 4.1 % (20.5-51.1); % Monocytes 5.4 % (1.7-9.3); % Neutrophils 89.5 % (42.2-75.2); Absolute Immature Granulocytes 0.2 10^3/uL (0-0.05); Absolute Lymphocytes 0.9 10^3/uL (1.2-3.4); Absolute Monocytes 1.2 10^3/uL (0.1-0.6); Absolute Neutrophils 19.2 10^3/uL (1.4-6.5); Nucleated Red Blood Cells % 0 % (-)
[2024-08-29 11:00] VITALS: BP 106/66
--- NOTE | 2024-08-29 12:10 | WOUNDNOTE ---
[facility]
--- NOTE | 2024-08-29 12:10 | WOUNDNOTE ---
R HEEL CLOSER VIEW
--- NOTE | 2024-08-29 12:11 | WOUNDNOTE ---
L LATERAL LOWER LEG
--- NOTE | 2024-08-29 12:11 | WOUNDNOTE ---
R POSTERIOR LEG AND HEEL
--- NOTE | 2024-08-29 12:11 | WOUNDNOTE ---
R POSTERIOR LOWER LEG
[2024-08-29] MEDS: ROXICODONE ORAL SOLUTION 10 MG PO (12:12)
--- NOTE | 2024-08-29 12:15 | WOUNDNOTE ---
WON RN note: Patient admitted with cellulitis of R foot.
See H&P for complete history. Currently at [facility].
PMH: venous ulcers on legs, smoker, HTN,A Fib, spinal stenosis, neuropathy in hands, laminectomy, b/l knee replacements with R knee revision 2014, went to [facility] for non healing leg wound.
Wound Location and type/assessment: Patient known to service for venous leg ulcers. Compared to last seen wounds improved but now with cellulitis to R foot and new intact blister to heel. R leg and heel painful to touch, 2-3+ edema and palpable
pedal pulses. R heel blister appears shallow omalley in color, suspect purulent, no drainage. Patient has redness on R thigh, said he spilled coffee on himself. R knee suture line with small opening, scant drainage. R medial/posterior lower leg and L
lateral leg with chronic venous ulcer. Patient states he had a skin substitute applied at [facility] to R leg last week, steri strips and mesh peeled off on own when dressing removed. L heel is intact, scattered scabs on legs and toes. Sacrum intact,
scarring visible on back and R hip. Assessed patient along with Dr. Deshpande and agreed with local wound care and compression.
Appetite: Good.
Pressure redistribution devices in place: On Accumax able to turn self, needs help lifting R leg. Pillow under calves.
Plan: Applied local wound care and nasim wraps knee high, tolerating compression. Will order mineral oil to start tomorrow for dry skin on legs. Updated nurse Lety and care plan, will follow as needed.
Note to case management of equipment requested for discharge: No changes
Recommend follow up at wound care center upon discharge.
--- NOTE | 2024-08-29 12:19 | CM ---
CM reviewed chart, patient seen bedside, initial assessment completed. Patient confirms he is a LTC resident of [facility], about one year. Patient reports he was receiving therapy at facility, typically uses a rolling walker or wheelchair.
Patient PCP Anival Correia, pharmacy [facility]. [facility] form reviewed verbally, no questions regarding form, placed in chart, patient provided with copy. Per liaison [facility], patient is AAOx3, ambulates WC or RW, supervision for
transfers, mod assist for sit to stand. CM will place return of care referral in [facility]. CM will continue to follow for all discharge planning needs.
Plan; return to [facility] when stable.
--- NOTE | 2024-08-29 13:10 | PHA.VAN.IN ---
Assessment
- Assessment
Renal Function: Appears similar to baseline (0.9)
AUC Dosing Plan
- Dosing Variables
Dosing Weight (kg): 104.468
Dosing CrCl (ml/min): 91
Vd coefficient (L/kg): 0.6
- Empiric Dosing
Initial / Loading Dose: Vanco 2G loading administered 08/28/24 1351
Maintenance Regimen: Vanco 1250mg Q12H Starting 08/29/24 1800
Estimated AUC (mcg*h/mL): 529
Estimated Peak (mcg*h/mL): 32.3
Estimated Trough (mcg/ml): 14
Estimated Half Life (H): 8.67
- Monitoring
No levels ordered at this time: Consider in the next few days
Pharmacokinetics Vancomycin I
- -
Patient Age: 74
Patient Sex: Male
Vancomycin Day #: 1
Indication: Skin And Soft Tissue
Requesting Provider: Jeramy
Pertinent Antimicrobial Allergies:
No known drug allergies
Height / Weight:
Height 6 ft 1 in
Actual Weight 104.468 kg
- Vital Signs / Lab Results
Temp Pulse Resp BP Pulse Ox
98.5 F 71 18 106/66 95
08/29/24 11:00 08/29/24 11:00 08/29/24 11:00 08/29/24 11:00 08/29/24 11:00
Lab Results - Hematology
08/28/24 08/29/24
13:49 07:09
WBC 20.0 H 21.5 H
Lab Results - Chemistry
08/28/24 08/29/24
13:49 07:09
BUN 42 H 36 H
Creatinine 1.0 0.9
Estimated Creat Clear 84 91
Albumin Cancelled 3.3 L
08/28/24 08/28/24
13:49 17:15
Lactic Acid 0.8 Cancelled
--- NOTE | 2024-08-29 14:34 | WOUNDNOTE ---
DEEJAY PAREDES NOTE ADDENDUM: Updated orders to include offloading heel boot for R heel blister. Will confirm with hospitalist and updated nurse Lety who will apply. Called [facility] for supply and will update work list.
[2024-08-29 15:00] VITALS: BP 115/64
[2024-08-29] MEDS: DICLOFENAC 1% TOPICAL GEL TOPICAL (15:35)
[2024-08-29] MEDS: VANCOCIN 275 MG IV (17:24)
[2024-08-29] MEDS: DESYREL 25 MG PO (21:22)
[2024-08-29 23:48] VITALS: BP 119/85
[2024-08-30] MEDS: TYLENOL 650 MG PO ×2 (03:22→19:58)
[2024-08-30] MEDS: VANCOCIN 275 MG IV ×2 (05:53→16:59)
[2024-08-30 07:00] VITALS: BP 117/74
[2024-08-30] MEDS: DICLOFENAC 1% TOPICAL GEL 4 GRAM TOPICAL ×2 (07:33→21:51)
[2024-08-30] MEDS: ELIQUIS 5 MG PO ×2 (07:33→19:58)
[2024-08-30] MEDS: HYDROPHOR 1 APPLIC TOPICAL (07:33)
[2024-08-30] MEDS: MORPHINE ORAL SOLUTION 30 MG PO ×2 (07:34→19:57)
[2024-08-30] MEDS: NEURONTIN 800 MG PO ×3 (07:34→21:51)
[2024-08-30] MEDS: LEXAPRO 20 MG PO (07:34)
--- NOTE | 2024-08-30 08:23 | W.PN.HOSP.TC ---
Today's Communication/Plan
-
Continue IV antibiotics
Appreciate ID input
Assessment / Plan
Assessment / Plan
Physical Exam
General: Comfortable, Conversant and Appears Chronically Ill
HEENT: NormoCephalic, Moist mucous membranes
Respiratory: Clear to Auscultation Bilaterally
Cardiac: S1/S2 and Regular Rhythm
GI: Soft, Non Tender, Non Distended and Normal Bowel Sounds
Musculoskeletal: No Cyanosis
Skin: Warm, Dry and Other (Left lower extremity is wrapped with an Abhay bandage clean dry and intact, right lower extremity has a large blister to the right heel that is painful to palpation associated with redness and swelling in the right foot up
to the knee)
Neuro: AO x 3, No Motor Deficits and Nonfocal/grossly intact
Psych: Calm
Assessment/Plan
74-year-old gentleman with past medical history significant for atrial fibrillation on Eliquis, hypertension, neuropathy, upper GI bleed, chronic chronic lower extremity edema, chronic bronchitis , anxiety depression, ambulatory dysfunction, history
of admission for septic shock secondary to E. coli bacteremia, chronic wounds to bilateral lower extremities, bilateral knee replacements, who presents to the emergency department from [facility] secondary to right foot swelling with blisters on
his right heel. He has a history of chronic wounds so this is acute on chronic. He was sent in for evaluation. He has redness and pressure that is blistering to the heel.
Laboratory is remarkable for WBC 20.0 BUN 42 creatinine 1.0 glucose 115. ED treatment: Morphine 4 mg IV once, IV Vancomycin.
# Right lower extremity cellulitis associated with pressure ulcer to the heel there is a large blood blister, associated with leukocytosis
- Continue with wound care
- Continue IV vancomycin
- Elevate the right lower extremity
- Monitor clinically
- Lower extremity ultrasound with REBECCA is unremarkable
- Follow-up MRSA screen
- Consult ID
Spinal Stimulator present (according to patient)
Chronic comorbidities are stable
hypertension
COPD
a-fib -- continue Eliquis
lymphedema of b/l lower extremities
chronic wounds of the bilateral lower extremities
depression
neuropathy
insomnia
Hx GI bleed
Opioid Use
DVT Prophylaxis: continue Eliquis
Code Status: Full code
Anticipated Discharge: 24 - 48 hours
Subjective/Interval History
-
Date of Service: August 30, 2024
Patient was seen and examined. He reported feeling better, denied any complaints.
Objective Data
-
Labs:
Laboratory Results
08/30/24
07:56
WBC Pending
Hgb Pending
Hct Pending
Plt Count Pending
Sodium Pending
Potassium Pending
Chloride Pending
Carbon Dioxide Pending
BUN Pending
Creatinine Pending
Glucose Pending
Calcium Pending
Vital Signs:
Vital Signs
Temp Pulse Resp BP Pulse Ox
98.6 F 79 20 119/85 95
08/29/24 23:48 08/29/24 23:48 08/29/24 23:48 08/29/24 23:48 08/29/24 23:48
I&O
08/29/24 08/30/24 08/31/24
06:59 06:59 06:59
Intake Total 240 / 240 960 / 960
Output Total 600 / 600
Balance -360 / -360 960 / 960
--- NOTE | 2024-08-30 09:09 | PN.CDI ---
CDI
- -
CDI:
Physician Documentation Request
Admit Date: 08/28/24 17:56
Dear Doctor Jeramy,
Patient admitted for cellulitis.
08/28 H&P: 'chronic wounds to bilateral lower extremities...morphine concentrate 100 mg/5 mL (20 mg/mL) oral solution 30 mg PO Q12H 08/28/24, oxycodone 5 mg/5 mL oral solution 10 mg PO DAILY@1300 08/28/24'
If possible, please provide further specificity as outlined below:
Opioid dependence
Opioid use
Other
Use of terms such as suspected, likely, concern for, or probable (associated with a specific diagnosis that is being evaluated, monitored, or treated as if it exists) are acceptable and can be coded in the inpatient setting, when documented at the
time of discharge.
Thank you,
Alyssa Zazueta RN, BSN
CDI Specialist
Available via [place] text
Please use your independent medical judgment in providing your response.
[2024-08-30 10:41] LABS: Hemoglobin 10.5 g/dL (13.0-18.0); Mean Corp Hgb Conc. 31.8 g/dL (33.0-37.0); Mean Corpuscular Hgb 26.6 pg (27.0-31.0); Mean Corpuscular Volume 83.5 fL (80.0-94.0); Mean Platelet Volume 9.9 fL (7.4-10.4); Platelet Count 233 10^3/uL (130-400); Red Blood Cell Count 3.95 10^6/uL (4.70-6.10); Red Cell Dist. Width 16.5 % (11.5-14.5); White Blood Cell Count 16.5 10^3/uL (4.8-10.8)
[2024-08-30 10:59] LABS: Blood Urea Nitrogen 29 mg/dl (9-20); Calcium 8.6 mg/dl (8.4-10.2); Carbon Dioxide 27 mmol/L (22-30); Chloride 106 mmol/L (98-107); Estimated Creatinine Clearance 103 ml/min; Glucose 124 mg/dl (70-99); Potassium 3.6 mmol/L (3.5-5.1); Sodium 139 mmol/L (135-145); eGFR > 60.00
[2024-08-30 11:44] LABS: % Basophils 0.2 % (0-2); % Eosinophils 0.4 % (0-6); % Immature Granulocytes 0.5 % (0-0.5); % Monocytes 10.2 % (1.7-9.3); % Neutrophils 81.7 % (42.2-75.2); Absolute Eosinophils 0.1 10^3/uL (0-0.7); Absolute Immature Granulocytes 0.1 10^3/uL (0-0.05); Absolute Lymphocytes 1.2 10^3/uL (1.2-3.4); Absolute Monocytes 1.7 10^3/uL (0.1-0.6); Absolute Neutrophils 13.4 10^3/uL (1.4-6.5); Nucleated Red Blood Cells % 0 % (-)
--- NOTE | 2024-08-30 11:52 | PHA.VAN.FU ---
Vancomycin Assessment / Plan
- Assessment
Renal Function: Stable (0.8)
WBC's are: Trending Down (21.5->16.5)
In the past 24 hrs, patient has been: Afebrile
- Dosing Plan
Continue: Vanco 1250mg Q12H
- Monitoring Plan
No level(s) ordered at this time: Consider in the next few days
- Follow Up
Pharmacy will continue to follow.
Vancomycin Follow UP
- -
Patient Age: 74
Patient Sex: Male
Vancomycin Day #: 2
Indication: Skin And Soft Tissue
Requesting Provider: Jeramy
Pertinent Antimicrobial Allergies:
No known drug allergies
Height / Weight:
Height 6 ft 1 in
Actual Weight 104.468 kg
- Vital Signs / Lab Results
Temp Pulse Resp BP Pulse Ox
98.2 F 77 18 117/74 96
08/30/24 07:00 08/30/24 07:00 08/30/24 07:00 08/30/24 07:00 08/30/24 07:50
Lab Results - Hematology
08/28/24 08/29/24 08/30/24
13:49 07:09 10:08
WBC 20.0 H 21.5 H 16.5 H
Lab Results - Chemistry
08/28/24 08/29/24 08/30/24
13:49 07:09 10:08
BUN 42 H 36 H 29 H
Creatinine 1.0 0.9 0.8
Estimated Creat Clear 84 91 103
Albumin Cancelled 3.3 L
08/28/24 08/28/24
13:49 17:15
Lactic Acid 0.8 Cancelled
[2024-08-30] MEDS: ROXICODONE ORAL SOLUTION 10 MG PO (12:23)
[2024-08-30 15:00] VITALS: BP 118/67
[2024-08-30] MEDS: DICLOFENAC 1% TOPICAL GEL TOPICAL (15:02)
[2024-08-30] MEDS: DESYREL 25 MG PO (21:50)
[2024-08-30 23:17] VITALS: BP 106/61
[2024-08-31 03:30] VITALS: BP 140/80
[2024-08-31] MEDS: VANCOCIN 275 MG IV (06:00)
[2024-08-31 07:00] VITALS: BP 127/73
[2024-08-31 07:43] LABS: % Basophils 0.4 % (0-2); % Eosinophils 1.1 % (0-6); % Immature Granulocytes 1.1 % (0-0.5); % Lymphocytes 8.3 % (20.5-51.1); % Monocytes 10.7 % (1.7-9.3); % Neutrophils 78.4 % (42.2-75.2); Absolute Basophils 0.1 10^3/uL (0-0.2); Absolute Eosinophils 0.2 10^3/uL (0-0.7); Absolute Immature Granulocytes 0.2 10^3/uL (0-0.05); Absolute Lymphocytes 1.3 10^3/uL (1.2-3.4); Absolute Monocytes 1.6 10^3/uL (0.1-0.6); Absolute Neutrophils 11.9 10^3/uL (1.4-6.5); Hematocrit 31.2 % (39.0-52.0); Hemoglobin 10.1 g/dL (13.0-18.0); Mean Corp Hgb Conc. 32.4 g/dL (33.0-37.0); Mean Corpuscular Hgb 26.8 pg (27.0-31.0); Mean Corpuscular Volume 82.8 fL (80.0-94.0); Mean Platelet Volume 10.1 fL (7.4-10.4); Nucleated Red Blood Cells % 0 % (-); Platelet Count 246 10^3/uL (130-400); Red Blood Cell Count 3.77 10^6/uL (4.70-6.10); Red Cell Dist. Width 16.5 % (11.5-14.5); White Blood Cell Count 15.1 10^3/uL (4.8-10.8)
[2024-08-31] MEDS: HYDROPHOR 1 APPLIC TOPICAL (08:08)
[2024-08-31] MEDS: DICLOFENAC 1% TOPICAL GEL 100 GRAM TOPICAL ×2 (08:09→21:44)
[2024-08-31] MEDS: MORPHINE ORAL SOLUTION 30 MG PO ×2 (08:10→20:22)
[2024-08-31] MEDS: ELIQUIS 5 MG PO ×2 (08:10→20:22)
[2024-08-31] MEDS: LEXAPRO 20 MG PO (08:10)
[2024-08-31] MEDS: NEURONTIN 800 MG PO ×3 (08:11→21:43)
[2024-08-31 08:35] LABS: Blood Urea Nitrogen 25 mg/dl (9-20); Calcium 8.3 mg/dl (8.4-10.2); Carbon Dioxide 24 mmol/L (22-30); Chloride 108 mmol/L (98-107); Estimated Creatinine Clearance 103 ml/min; Glucose 146 mg/dl (70-99); Potassium 3.4 mmol/L (3.5-5.1); Sodium 139 mmol/L (135-145); eGFR > 60.00
--- NOTE | 2024-08-31 08:46 | PHA.VAN.FU ---
Vancomycin Assessment / Plan
- Assessment
Renal Function: Stable (0.8)
WBC's are: Trending Down (16.5->15.1)
In the past 24 hrs, patient has been: Afebrile
- Dosing Plan
Continue: Vanco 1250mg Q12H
- Monitoring Plan
No level(s) ordered at this time: Consider in the next few days
- Follow Up
Pharmacy will continue to follow.
Vancomycin Follow UP
- -
Patient Age: 74
Patient Sex: Male
Vancomycin Day #: 3
Indication: Skin And Soft Tissue
Requesting Provider: Jeramy
Pertinent Antimicrobial Allergies:
No known drug allergies
Height / Weight:
Height 6 ft 1 in
Actual Weight 104.468 kg
- Vital Signs / Lab Results
Temp Pulse Resp BP Pulse Ox
97.8 F 117 20 140/80 94
08/31/24 03:30 08/31/24 03:30 08/31/24 03:30 08/31/24 03:30 08/30/24 23:17
Lab Results - Hematology
08/28/24 08/29/24 08/30/24
13:49 07:09 10:08
WBC 20.0 H 21.5 H 16.5 H
08/31/24
06:57
WBC 15.1 H
Lab Results - Chemistry
08/28/24 08/29/24 08/30/24
13:49 07:09 10:08
BUN 42 H 36 H 29 H
Creatinine 1.0 0.9 0.8
Estimated Creat Clear 84 91 103
Albumin Cancelled 3.3 L
08/31/24
06:57
BUN 25 H
Creatinine 0.8
Estimated Creat Clear 103
Albumin
08/28/24 08/28/24
13:49 17:15
Lactic Acid 0.8 Cancelled
Microbiology Results
08/29/24 08:50 MRSA Screen - Final
Nose No Methicillin Resistant Staphylococcus aureus isolated.
08/30/24 08:30 Gram Stain - Preliminary
Leg - Right
--- NOTE | 2024-08-31 09:59 | CON.ID ---
Consultation
-
Date/Time Consultation Requested: August 30, 2024 1646
Date/Time Consultation Performed: August 31, 2024 1000
Requesting Provider: Dr. Luis Deshpande
Performing Provider: Dr. Sherita Cheng
Reason for Consultation: R leg cellulitis
Chief Complaint / Past History
Chief Complaint
Right foot redness
History of Present Illness
74-year-old male from [facility] with history of neuropathy, A-fib, venous stasis, lymphedema, chronic bilateral lower extremity wounds who presented to the hospital 08/28 due to new right heel blister with redness of the foot and
leg. White count was 20. Arterial duplex normal. Patient has been on IV vancomycin. Patient does not know how he developed the right heel blister. He thinks he may have been from walking with new shoes. The other chronic leg wounds have
improved. No fevers or chills. No other complaints.
Past History
Additional Past Medical History:
Hypertension
Neuropathy
Atrial fibrillation
History of upper GI bleed
Venous stasis
Lymphedema
Chronic BLE wounds
Spinal stenosis
Chronic pain
Anxiety/depression
History of MSSA left leg wound infection
History of MSSA left olecranon bursitis (2009) s/p I+D
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
L TKA
Allergy History:
No Known Allergies Allergy (Verified 11/19/22 12:59)
Medications Reviewed: Yes
Current Antibiotics:
Vancomycin day 3
Social History
Tobacco: Former Smoker
Alcohol: None
Drug: None
Living: Care Home
Family History
Family History: Not Pertinent
Review of Systems
Review of Systems
General: Negative Fever, Chills or Change in Appetite
HEENT: Negative Sinus Problems or Headache
Cardiovascular: Negative Chest Pain
Respiratory: Negative Dyspnea or Cough
Gasteroenterology: Negative Nausea, Vomiting or Diarrhea
Genital / Urological: Negative Dysuria or Flank Pain
Endocrine: Negative Weakness
All systems: All other systems were reviewed and were negative
Vital Signs
Temp Pulse Resp BP Pulse Ox
97.8 F 117 20 140/80 94
08/31/24 03:30 08/31/24 03:30 08/31/24 03:30 08/31/24 03:30 08/30/24 23:17
Physical Exam
Physical Exam
Constitutional: No Acute Distress, Comfortable and Chronically Ill
Eyes: No Conjunctival Hemorrhage and Sclera Anicteric
Cardiovascular: Regular Rate and S1/S2
Pulmonary: Clear
Gastrointestinal: Soft, Non Tender, Non Distended and Normal Bowel Sounds
Genito-Urinary: Negative CVA Tenderness
Extremities: Edema (Right greater than left lower extremity), Venous Insufficiency (Right) and Other (Right foot: heel with large blister, + surrounding erythema to ankle, + warmth)
Musculoskeletal: Joint Swelling (R>LLE)
Neurological: AO x 3
Lab / Diagnostic Study Results
08/31/24 06:57
08/31/24 06:57
Abs Immat Gran (auto) 0.2 10^3/uL (0-0.05) H 08/31/24 06:57
Absolute Neuts (auto) 11.9 10^3/uL (1.4-6.5) H 08/31/24 06:57
Absolute Lymphs (auto) 1.3 10^3/uL (1.2-3.4) 08/31/24 06:57
Absolute Monos (auto) 1.6 10^3/uL (0.1-0.6) H 08/31/24 06:57
Absolute Basos (auto) 0.1 10^3/uL (0-0.2) 08/31/24 06:57
Immature Gran % 1.1 % (0-0.5) H 08/31/24 06:57
Neutrophils % 78.4 % (42.2-75.2) H 08/31/24 06:57
Lymphocytes % 8.3 % (20.5-51.1) L 08/31/24 06:57
Monocytes % 10.7 % (1.7-9.3) H 08/31/24 06:57
Eosinophils % 1.1 % (0-6) 08/31/24 06:57
Basophils % 0.4 % (0-2) 08/31/24 06:57
PT 18.9 Sec (11.4-14.6) H 08/29/24 07:09
INR 1.56 08/29/24 07:09
Lactic Acid Cancelled 08/28/24 17:15
Microbiology Results
Micro:
08/29/24 08:50 MRSA Screen - Final
Nose No Methicillin Resistant Staphylococcus aureus isolated.
08/30/24 08:30 Wound Culture - Pending
Leg - Right Gram Stain - Preliminary
08/30/24 lower extremity arterial studies: normal lower extremity arterial noninvasive study.
Assessment / Plan
# Acute right heel blister with cellulitis
# Leukocytosis - trending down
# Venous stasis,
# BLE Lymphedema
- DC Vancomycin
- Start cefepime
- Continue nasim-compression and wound care.
-Follow wbc
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
Hypertension
Neuropathy
Atrial fibrillation
History of upper GI bleed
Venous stasis
Lymphedema
Chronic BLE wounds
Spinal stenosis
Chronic pain
Anxiety/depression
History of MSSA left leg wound infection
History of MSSA left olecranon bursitis (2009) s/p I+D
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
L TKA
SNF resident
[2024-08-31] MEDS: STERILE WATER FOR INJECTION 10 ML IV ×2 (13:19→22:34)
[2024-08-31] MEDS: ROXICODONE ORAL SOLUTION 10 MG PO (13:19)
--- NOTE | 2024-08-31 13:55 | W.PN.HOSP.TC ---
Today's Communication/Plan
-
Cefepime, wound care, compression, follow wound culture
Assessment / Plan
Assessment / Plan
Physical Exam
General: Not in acute distress
HEENT: Normocephalic, Moist mucous membranes
Respiratory: Clear to Auscultation Bilaterally
Cardiac: S1/S2 and Regular Rhythm
GI: Soft, Non Tender, Non Distended and Normal Bowel Sounds
Musculoskeletal: No Cyanosis
Skin: Warm, Dry and Other (Left lower extremity is wrapped with an Abhay bandage clean dry and intact, right lower extremity has a large blister to the right heel that is painful to palpation associated with redness and swelling in the right foot up
to the knee)
Neuro: AO x 3, No Motor Deficits and Nonfocal/grossly intact
Psych: Calm
Assessment/Plan
74-year-old gentleman with past medical history significant for atrial fibrillation on Eliquis, hypertension, neuropathy, upper GI bleed, chronic chronic lower extremity edema, chronic bronchitis , anxiety depression, ambulatory dysfunction, history
of admission for septic shock secondary to E. coli bacteremia, chronic wounds to bilateral lower extremities, bilateral knee replacements, who presents to the emergency department from [facility] secondary to right foot swelling with blisters on
his right heel. He has a history of chronic wounds so this is acute on chronic. He was sent in for evaluation. He has redness and pressure that is blistering to the heel.
Laboratory is remarkable for WBC 20.0 BUN 42 creatinine 1.0 glucose 115. ED treatment: Morphine 4 mg IV once, IV Vancomycin.
# Right lower extremity cellulitis associated with pressure ulcer to the heel there is a large blood blister, associated with leukocytosis
- Continue with wound care
- MRSA Screen negative. IV vancomycin NOW STOPPED.
- Cefepime started. Appreciate ID.
- Elevate the right lower extremity. Continue ABHAY wrap compression and wound care.
- Monitor clinically
- Lower extremity ultrasound with REBECCA is unremarkable
#Mild Hypokalemia
-Replaced, continue to monitor BMP
Spinal Stimulator present (according to patient)
Chronic comorbidities are stable
hypertension
COPD
a-fib -- continue Eliquis
lymphedema of b/l lower extremities
chronic wounds of the bilateral lower extremities
depression
neuropathy
insomnia
Hx GI bleed
Opioid Use
DVT Prophylaxis: continue Eliquis
Code Status: Full code
Anticipated Discharge: > 48 hours
Subjective/Interval History
-
Date of Service: August 31, 2024
Patient was seen and examined. He denied any fever, chest pain or pain in his leg, denied any new symptoms or complaints.
Objective Data
-
Labs:
Laboratory Results
08/31/24
06:57
WBC 15.1 H
Hgb 10.1 L
Hct 31.2 L
Plt Count 246
Sodium 139
Potassium 3.4 L
Chloride 108 H
Carbon Dioxide 24
BUN 25 H
Creatinine 0.8
Glucose 146 H
Calcium 8.3 L
Vital Signs:
Vital Signs
Temp Pulse Resp BP Pulse Ox
99.4 F 89 19 127/73 94
08/31/24 07:00 08/31/24 07:00 08/31/24 07:00 08/31/24 07:00 08/31/24 07:00
I&O
08/30/24 08/31/24 09/01/24
06:59 06:59 06:59
Intake Total 960 / 960 275 / 275
Output Total 1350 / 1350
Balance 960 / 960 -1075 / -1075
[2024-08-31] MEDS: MAXIPIME 2000 MG IV ×2 (14:17→22:29)
[2024-08-31] MEDS: KCL 40 MEQ PO (14:19)
[2024-08-31 15:00] VITALS: BP 130/75
--- NOTE | 2024-08-31 15:33 | CM ---
CM reviewed chart, patient remains on IV antibiotics. Continue with wound care. Will continue to follow for all discharge planning needs.
Plan; return to [facility] when stable.
[2024-08-31] MEDS: DICLOFENAC 1% TOPICAL GEL 1 GRAM TOPICAL (15:52)
[2024-08-31 17:45] VITALS: BP 130/75
[2024-08-31] MEDS: DESYREL 25 MG PO (21:42)
[2024-08-31] MEDS: FLUSH (NSS) 2 FLUSH IV (22:34)
[2024-08-31] MEDS: TYLENOL 650 MG PO (22:49)
[2024-08-31 23:26] VITALS: BP 118/67
[2024-09-01] MEDS: STERILE WATER FOR INJECTION 10 ML IV ×3 (05:32→22:55)
[2024-09-01] MEDS: MAXIPIME 2000 MG IV ×3 (05:32→22:55)
[2024-09-01] MEDS: FLUSH (NSS) 2 FLUSH IV (05:33)
[2024-09-01 07:00] VITALS: BP 130/68
[2024-09-01 07:18] LABS: % Basophils 0.5 % (0-2); % Eosinophils 3.8 % (0-6); % Immature Granulocytes 2.5 % (0-0.5); % Lymphocytes 12.8 % (20.5-51.1); % Monocytes 14.2 % (1.7-9.3); % Neutrophils 66.2 % (42.2-75.2); Absolute Basophils 0.1 10^3/uL (0-0.2); Absolute Eosinophils 0.5 10^3/uL (0-0.7); Absolute Immature Granulocytes 0.3 10^3/uL (0-0.05); Absolute Lymphocytes 1.5 10^3/uL (1.2-3.4); Absolute Monocytes 1.7 10^3/uL (0.1-0.6); Absolute Neutrophils 7.9 10^3/uL (1.4-6.5); Hematocrit 29.9 % (39.0-52.0); Hemoglobin 9.6 g/dL (13.0-18.0); Mean Corp Hgb Conc. 32.1 g/dL (33.0-37.0); Mean Corpuscular Hgb 26.9 pg (27.0-31.0); Mean Corpuscular Volume 83.8 fL (80.0-94.0); Nucleated Red Blood Cells % 0 % (-); Platelet Count 262 10^3/uL (130-400); Red Blood Cell Count 3.57 10^6/uL (4.70-6.10); Red Cell Dist. Width 16.5 % (11.5-14.5); White Blood Cell Count 11.9 10^3/uL (4.8-10.8)
[2024-09-01 07:36] LABS: Blood Urea Nitrogen 21 mg/dl (9-20); Calcium 8.2 mg/dl (8.4-10.2); Carbon Dioxide 27 mmol/L (22-30); Chloride 106 mmol/L (98-107); Estimated Creatinine Clearance 103 ml/min; Glucose 111 mg/dl (70-99); Potassium 3.9 mmol/L (3.5-5.1); Sodium 139 mmol/L (135-145); eGFR > 60.00
[2024-09-01] MEDS: MORPHINE ORAL SOLUTION 30 MG PO ×2 (07:47→20:26)
[2024-09-01] MEDS: NEURONTIN 800 MG PO ×3 (07:48→22:59)
[2024-09-01] MEDS: ELIQUIS 5 MG PO ×2 (07:48→20:25)
[2024-09-01] MEDS: LEXAPRO 20 MG PO (07:48)
[2024-09-01] MEDS: HYDROPHOR 1 APPLIC TOPICAL (07:49)
[2024-09-01] MEDS: DICLOFENAC 1% TOPICAL GEL 1 GRAM TOPICAL ×2 (07:49→16:27)
--- NOTE | 2024-09-01 07:50 | W.PN.HOSP.TC ---
Today's Communication/Plan
-
Cough, Shortness of Breath on 09/01/24 -- CXR, EKG, troponins and pulmonary toilet as below
Assessment / Plan
Assessment / Plan
Physical Exam
General: Not in acute distress
HEENT: Normocephalic, Moist mucous membranes
Respiratory: Clear to Auscultation Bilaterally
Cardiac: S1/S2 and Regular Rhythm
GI: Soft, Non Tender, Non Distended and Normal Bowel Sounds
Musculoskeletal: No Cyanosis
Skin: Warm, Dry and Other (Left lower extremity is wrapped with an Abhay bandage clean dry and intact, right lower extremity has a large blister to the right heel that is painful to palpation associated with redness and swelling in the right foot up
to the knee)
Neuro: AO x 3, No Motor Deficits and Nonfocal/grossly intact
Psych: Calm
Assessment/Plan
74-year-old gentleman with past medical history significant for atrial fibrillation on Eliquis, hypertension, neuropathy, upper GI bleed, chronic chronic lower extremity edema, chronic bronchitis , anxiety depression, ambulatory dysfunction, history
of admission for septic shock secondary to E. coli bacteremia, chronic wounds to bilateral lower extremities, bilateral knee replacements, who presents to the emergency department from [facility] secondary to right foot swelling with blisters on
his right heel. He has a history of chronic wounds so this is acute on chronic. He was sent in for evaluation. He has redness and pressure that is blistering to the heel.
Laboratory is remarkable for WBC 20.0 BUN 42 creatinine 1.0 glucose 115. ED treatment: Morphine 4 mg IV once, IV Vancomycin.
# Right lower extremity cellulitis associated with pressure ulcer to the heel there is a large blood blister, associated with leukocytosis
- Continue with wound care
- MRSA Screen negative. IV vancomycin NOW STOPPED.
- Cefepime started. Appreciate ID. On discharge, can transition cefepime to cefuroxime 500mg po bid x 7 more days (from 09/01/24).
- Elevate the right lower extremity. Continue ABHAY wrap compression and wound care.
- Monitor clinically
- Lower extremity ultrasound with REBECCA is unremarkable
#Cough, Shortness of Breath on 09/01/24
#COPD History
#Former Smoker
-Check CXR, COVID, Flu, EKG and troponins
-Speech consult
-Pulmonary toilet
#Mild Hypokalemia
-Replaced, continue to monitor BMP
Spinal Stimulator present (according to patient)
Chronic comorbidities are stable
hypertension
a-fib -- continue Eliquis
lymphedema of b/l lower extremities
chronic wounds of the bilateral lower extremities
depression
neuropathy
insomnia
Hx GI bleed
Opioid Use
DVT Prophylaxis: continue Eliquis
Code Status: Full code
Anticipated Discharge: 24 - 48 hours
Subjective/Interval History
-
Date of Service: September 01, 2024
Patient was seen and examined. He reported cough and some shortness of breath, denied any chest pain or abdominal pain. No other complaints.
Objective Data
-
Labs:
Laboratory Results
09/01/24
06:15
WBC 11.9 H
Hgb 9.6 L
Hct 29.9 L
Plt Count 262
Sodium 139
Potassium 3.9
Chloride 106
Carbon Dioxide 27
BUN 21 H
Creatinine 0.8
Glucose 111 H
Calcium 8.2 L
Vital Signs:
Vital Signs
Temp Pulse Resp BP Pulse Ox
98.6 F 74 18 118/67 96
08/31/24 23:26 08/31/24 23:26 08/31/24 23:26 08/31/24 23:26 08/31/24 23:26
I&O
08/31/24 09/01/24 09/02/24
06:59 06:59 06:59
Intake Total 275 / 275 120 / 120
Output Total 1350 / 1350 200 / 200
Balance -1075 / -1075 -80 / -80
--- NOTE | 2024-09-01 11:20 | W.PN.ID1 ---
Addendum entered and electronically signed by Sherita Cheng MD 09/01/24 16:14:
CXR with mild retrocardiac opacity, small left pleural effusion.
Continue cefepime for now. At time if dc, transition to cefuroxime 500mg po bid through 09/07/2024.
d/w Dr. Deshpande
Original Note:
Date of Service
Date of Service: September 01, 2024
Today's Communication
Can transition cefepime to cefuroxime 500mg po bid x 7 more days.
ID will sign off.
Assessment / Plan
# Acute right heel blister with cellulitis - improving
# Leukocytosis - trending down
# Venous stasis,
# BLE Lymphedema
- arterial duplex normal
- Can transition cefepime to cefuroxime 500mg po bid x 7 more days.
- Continue NEDRA-compression and wound care.
-ID will sign off.
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
Hypertension
Neuropathy
Atrial fibrillation
History of upper GI bleed
Venous stasis
Lymphedema
Chronic BLE wounds
Spinal stenosis
Chronic pain
Anxiety/depression
History of MSSA left leg wound infection
History of MSSA left olecranon bursitis (2009) s/p I+D
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
L TKA
SNF resident
Chief Complaint
-: Cellulitis
Subjective / Review of Systems
Right heel blister discomfort.
Vital Signs / Physical Exam
Vital Signs
Vital Signs
Temp Pulse Resp BP Pulse Ox
98 F 76 19 130/68 97
09/01/24 07:00 09/01/24 07:00 09/01/24 07:00 09/01/24 07:00 09/01/24 07:00
Physical Exam
Constitutional: No Acute Distress and Chronically Ill
Pulmonary: Clear
Gastrointestinal: Soft, Non Tender, Non Distended and Normal Bowel Sounds
Extremities: Edema (BLE edema decreased) and Venous Insufficiency (BLE)
Wound: Other (right heel blister partially ruptured with serous fluid, surrounding erythema almost resolved, foot erythema decreased)
Objective Data
Lab Data
Lab Results
09/01/24 06:15
09/01/24 06:15
PT 18.9 Sec (11.4-14.6) H 08/29/24 07:09
INR 1.56 08/29/24 07:09
Estimated Creat Clear 103 ml/min 09/01/24 06:15
Lactic Acid Cancelled 08/28/24 17:15
Total Bilirubin 0.9 mg/dl (0.2-1.3) 08/29/24 07:09
AST 21 U/L (17-59) 08/29/24 07:09
ALT 15 U/L (0-50) 08/29/24 07:09
Alkaline Phosphatase 144 U/L (38-126) H 08/29/24 07:09
Most recent labs reviewed.
Micro Results:
08/30/24 08:30 Wound Culture - Preliminary
Leg - Right Gram Stain - Preliminary
08/29/24 08:50 MRSA Screen - Final
Nose No Methicillin Resistant Staphylococcus aureus isolated.
08/30/24 lower extremity arterial studies: normal lower extremity arterial noninvasive study.
Care Review
Plan reviewed with: Physician (Dr. Deshpande)
[2024-09-01] MEDS: DUONEB INH (12:11)
[2024-09-01] MEDS: PULMICORT 0.25 MG INH ×2 (12:12→20:10)
[2024-09-01] MEDS: DUONEB 3 ML INH ×3 (12:12→20:10)
[2024-09-01 12:34] LABS: Troponin I < 0.012 ng/ml
[2024-09-01 13:35] LABS: COVID-19 Antigen Negative (Negative)
[2024-09-01] MEDS: MUCINEX 1200 MG PO ×2 (14:44→20:24)
[2024-09-01] MEDS: ROXICODONE ORAL SOLUTION 10 MG PO (14:44)
[2024-09-01 15:00] VITALS: BP 125/74
--- NOTE | 2024-09-01 15:41 | CM ---
CM reviewed chart, patient for CXR today, continues to refuse PT. Patient LTC resident of [facility], will return upon discharge. CM will continue to follow for all discharge planning needs.
Plan; return to [facility] when stable
[facility]
Report: [phone]
--- NOTE | 2024-09-01 18:21 | PTCARENOTE ---
Refusing treatment, Patient is refusing EKGs, blood work , patient is aware of the risk. MD aware.
[2024-09-01] MEDS: DESYREL 25 MG PO (22:51)
[2024-09-01] MEDS: TYLENOL 650 MG PO (22:59)
[2024-09-01] MEDS: DICLOFENAC 1% TOPICAL GEL TOPICAL (23:05)
[2024-09-01 23:18] VITALS: BP 127/90
[2024-09-02 00:55] LABS: Troponin I < 0.012 ng/ml
[2024-09-02] MEDS: MAXIPIME 2000 MG IV ×3 (05:42→21:26)
[2024-09-02] MEDS: STERILE WATER FOR INJECTION 10 ML IV ×3 (05:44→21:26)
[2024-09-02] MEDS: FLUSH (NSS) 1 FLUSH IV (05:45)
[2024-09-02 06:54] LABS: Blood Urea Nitrogen 20 mg/dl (9-20); Calcium 8.4 mg/dl (8.4-10.2); Carbon Dioxide 26 mmol/L (22-30); Chloride 104 mmol/L (98-107); Estimated Creatinine Clearance 103 ml/min; Glucose 112 mg/dl (70-99); Potassium 4.4 mmol/L (3.5-5.1); Sodium 140 mmol/L (135-145); eGFR > 60.00
[2024-09-02 07:04] LABS: Troponin I < 0.012 ng/ml
[2024-09-02 07:12] LABS: % Basophils 0.5 % (0-2); % Lymphocytes 13.6 % (20.5-51.1); % Monocytes 14.9 % (1.7-9.3); Absolute Basophils 0.1 10^3/uL (0-0.2); Absolute Eosinophils 0.5 10^3/uL (0-0.7); Absolute Immature Granulocytes 0.5 10^3/uL (0-0.05); Absolute Lymphocytes 1.6 10^3/uL (1.2-3.4); Absolute Monocytes 1.7 10^3/uL (0.1-0.6); Absolute Neutrophils 7.2 10^3/uL (1.4-6.5); Hematocrit 31.2 % (39.0-52.0); Hemoglobin 9.8 g/dL (13.0-18.0); Mean Corp Hgb Conc. 31.4 g/dL (33.0-37.0); Mean Corpuscular Hgb 26.5 pg (27.0-31.0); Mean Corpuscular Volume 84.3 fL (80.0-94.0); Mean Platelet Volume 9.7 fL (7.4-10.4); Nucleated Red Blood Cells % 0 % (-); Platelet Count 335 10^3/uL (130-400); Red Cell Dist. Width 16.5 % (11.5-14.5); White Blood Cell Count 11.4 10^3/uL (4.8-10.8)
[2024-09-02 07:35] VITALS: BP 148/71
[2024-09-02] MEDS: PULMICORT 0.25 MG INH ×2 (07:35→20:01)
[2024-09-02] MEDS: DUONEB 3 ML INH ×3 (07:35→20:02)
[2024-09-02] MEDS: MORPHINE ORAL SOLUTION 30 MG PO ×2 (09:16→21:25)
[2024-09-02] MEDS: NEURONTIN 800 MG PO ×3 (09:16→21:25)
[2024-09-02] MEDS: MUCINEX 1200 MG PO ×2 (09:17→21:25)
[2024-09-02] MEDS: LEXAPRO 20 MG PO (09:17)
[2024-09-02] MEDS: ELIQUIS 5 MG PO ×2 (09:17→21:25)
[2024-09-02] MEDS: HYDROPHOR 1 APPLIC TOPICAL (09:21)
[2024-09-02] MEDS: DICLOFENAC 1% TOPICAL GEL 100 GRAM TOPICAL ×2 (09:22→17:28)
[2024-09-02] MEDS: DUONEB INH (11:17)
[2024-09-02] MEDS: ROXICODONE ORAL SOLUTION 10 MG PO (13:33)
[2024-09-02 15:35] VITALS: BP 107/66
--- NOTE | 2024-09-02 17:18 | W.PN.HOSP.TC ---
Today's Communication/Plan
-
Continue IV antibiotics
Pulmonary toilet
Repeat CXR tomorrow morning
Assessment / Plan
Assessment / Plan
Physical Exam
General: Not in acute distress
HEENT: Normocephalic, Moist mucous membranes
Respiratory: Clear to Auscultation Bilaterally
Cardiac: S1/S2 and Regular Rhythm
GI: Soft, Non Tender, Non Distended and Normal Bowel Sounds
Musculoskeletal: No Cyanosis
Skin: Warm, Dry and Other (Left lower extremity is wrapped with an Abhay bandage clean dry and intact, right lower extremity has a large blister to the right heel that is painful to palpation associated with redness and swelling in the right foot up
to the knee)
Neuro: AO x 3, No Motor Deficits and Nonfocal/grossly intact
Psych: Calm
Assessment/Plan
74-year-old gentleman with past medical history significant for atrial fibrillation on Eliquis, hypertension, neuropathy, upper GI bleed, chronic chronic lower extremity edema, chronic bronchitis , anxiety depression, ambulatory dysfunction, history
of admission for septic shock secondary to E. coli bacteremia, chronic wounds to bilateral lower extremities, bilateral knee replacements, who presents to the emergency department from [facility] secondary to right foot swelling with blisters on
his right heel. He has a history of chronic wounds so this is acute on chronic. He was sent in for evaluation. He has redness and pressure that is blistering to the heel.
Laboratory is remarkable for WBC 20.0 BUN 42 creatinine 1.0 glucose 115. ED treatment: Morphine 4 mg IV once, IV Vancomycin.
# Right lower extremity cellulitis associated with pressure ulcer to the heel there is a large blood blister, associated with leukocytosis
- Continue with wound care
- MRSA Screen negative. IV vancomycin NOW STOPPED.
- Cefepime started. Appreciate ID. On discharge, can transition cefepime to cefuroxime 500mg po bid x 7 more days (from 09/01/24).
- Elevate the right lower extremity. Continue ABHAY wrap compression and wound care.
- Monitor clinically
- Lower extremity ultrasound with REBECCA is unremarkable
#Cough, Shortness of Breath on 09/01/24 -- suspected from pneumonia
#COPD History
#Former Smoker
-CXR with retrocardiac opacity -- suspected pneumonia, COVID - negative, Flu - negative
-Spoke with Dr. Cheng on 09/02/24, okay to continue Cefepime for now
-Speech consult
-Pulmonary toilet
-Repeat CXR tomorrow morning
#Mild Hypokalemia
-Replaced, continue to monitor BMP
#Spinal Stimulator present (according to patient)
#Chronic comorbidities are stable
#hypertension
#a-fib -- continue Eliquis
#lymphedema of b/l lower extremities
#chronic wounds of the bilateral lower extremities
#depression
#neuropathy
#insomnia
#History of GI bleed
Opioid Use
DVT Prophylaxis: continue Eliquis
Code Status: Full code
Anticipated Discharge: > 48 hours
Subjective/Interval History
-
Date of Service: September 02, 2024
Patient was seen and examined. He still reported cough and shortness of breath, and said he still feels bad and is not ready to go home yet.
Objective Data
-
Labs:
Laboratory Results
09/02/24
06:17
WBC 11.4 H
Hgb 9.8 L
Hct 31.2 L
Plt Count 335 D
Sodium 140
Potassium 4.4
Chloride 104
Carbon Dioxide 26
BUN 20
Creatinine 0.8
Glucose 112 H
Calcium 8.4
Vital Signs:
Vital Signs
Temp Pulse Resp BP Pulse Ox
98.5 F 86 18 107/66 96
09/02/24 15:35 09/02/24 15:35 09/02/24 15:35 09/02/24 15:35 09/02/24 15:35
I&O
09/01/24 09/02/24 09/03/24
06:59 06:59 06:59
Intake Total 120 / 120 480 / 480
Output Total 200 / 200 1200 / 1200
Balance -80 / -80 -720 / -720
[2024-09-02] MEDS: TYLENOL 650 MG PO (17:30)
[2024-09-02] MEDS: DESYREL 25 MG PO (21:25)
[2024-09-02] MEDS: DICLOFENAC 1% TOPICAL GEL 4 GRAM TOPICAL (21:26)
[2024-09-02 23:29] VITALS: BP 130/74
[2024-09-03] MEDS: MAXIPIME 2000 MG IV ×2 (06:11→13:10)
[2024-09-03] MEDS: STERILE WATER FOR INJECTION 10 ML IV ×2 (06:11→13:11)
[2024-09-03] MEDS: PULMICORT 0.25 MG INH (07:19)
[2024-09-03] MEDS: DUONEB 3 ML INH (07:19)
[2024-09-03 07:32] LABS: % Basophils 0.7 % (0-2); % Eosinophils 3.6 % (0-6); % Immature Granulocytes 4.5 % (0-0.5); % Lymphocytes 13.2 % (20.5-51.1); % Monocytes 14.6 % (1.7-9.3); % Neutrophils 63.4 % (42.2-75.2); Absolute Basophils 0.1 10^3/uL (0-0.2); Absolute Eosinophils 0.4 10^3/uL (0-0.7); Absolute Immature Granulocytes 0.5 10^3/uL (0-0.05); Absolute Lymphocytes 1.5 10^3/uL (1.2-3.4); Absolute Monocytes 1.7 10^3/uL (0.1-0.6); Absolute Neutrophils 7.3 10^3/uL (1.4-6.5); Hemoglobin 9.2 g/dL (13.0-18.0); Mean Corp Hgb Conc. 31.7 g/dL (33.0-37.0); Mean Corpuscular Hgb 26.4 pg (27.0-31.0); Mean Corpuscular Volume 83.1 fL (80.0-94.0); Mean Platelet Volume 9.5 fL (7.4-10.4); Nucleated Red Blood Cells % 0 % (-); Platelet Count 388 10^3/uL (130-400); Red Blood Cell Count 3.49 10^6/uL (4.70-6.10); Red Cell Dist. Width 16.3 % (11.5-14.5); White Blood Cell Count 11.5 10^3/uL (4.8-10.8)
[2024-09-03 07:41] LABS: Blood Urea Nitrogen 19 mg/dl (9-20); Calcium 8.3 mg/dl (8.4-10.2); Carbon Dioxide 26 mmol/L (22-30); Chloride 106 mmol/L (98-107); Estimated Creatinine Clearance 103 ml/min; Glucose 109 mg/dl (70-99); Potassium 4.3 mmol/L (3.5-5.1); Sodium 138 mmol/L (135-145); eGFR > 60.00
[2024-09-03 07:43] VITALS: BP 115/69
--- NOTE | 2024-09-03 08:26 | W.PN.HOSP.TC ---
Today's Communication/Plan
-
Discharge today
Assessment / Plan
Assessment / Plan
Physical Exam
General: Not in acute distress
HEENT: Normocephalic, Moist mucous membranes
Respiratory: Clear to Auscultation Bilaterally
Cardiac: S1/S2 and Regular Rhythm
GI: Soft, Non Tender, Non Distended and Normal Bowel Sounds
Musculoskeletal: No Cyanosis
Skin: Warm, Dry and Other (Left lower extremity is wrapped with an Abhay bandage clean dry and intact, right lower extremity has a large blister to the right heel that is painful to palpation associated with redness and swelling in the right foot up
to the knee)
Neuro: AO x 3, No Motor Deficits and Nonfocal/grossly intact
Psych: Calm
Assessment/Plan
74-year-old gentleman with past medical history significant for atrial fibrillation on Eliquis, hypertension, neuropathy, upper GI bleed, chronic chronic lower extremity edema, chronic bronchitis, anxiety, depression, ambulatory dysfunction, history
of admission for septic shock secondary to E. coli bacteremia, chronic wounds to bilateral lower extremities, bilateral knee replacements, who presents to the emergency department from [place] secondary to right foot swelling with blisters on
his right heel. He has a history of chronic wounds so this is acute on chronic. He was sent in for evaluation. He has redness and pressure that is blistering to the heel.
Laboratory is remarkable for WBC 20.0 BUN 42 creatinine 1.0 glucose 115. ED treatment: Morphine 4 mg IV once, IV Vancomycin.
# Right lower extremity cellulitis associated with pressure ulcer to the heel there is a large blood blister, associated with leukocytosis
- Continue with wound care
- MRSA Screen negative. IV vancomycin PREVIOUSLY STOPPED.
- Cefepime started. Appreciate ID. On discharge, can transition cefepime to cefuroxime 500mg po bid through 09/07/2024.
- Elevate the right lower extremity. Continue ABHAY wrap compression and wound care.
- Monitor clinically
- Lower extremity ultrasound with REBECCA is unremarkable
#Cough, Shortness of Breath on 09/01/24 -- suspected from pneumonia
#COPD History ON RECORDS (BUT PATIENT DENIED HAVING ANY COPD)
#History of Chronic Bronchitis?
#Former Smoker
-CXR with retrocardiac opacity -- suspected pneumonia, COVID - negative, Flu - negative
-I communicated with Dr. Cheng (Infectious Disease) on 09/01/24 and she recommended for any possible pneumonia continue Cefepime inpatient and switch to cefuroxime as above
at the time of discharge.
-Patient refused speech/swallow evaluation
-Pulmonary toilet
-Repeat CXR 09/03/24 stable
-Repeat CXR outpatient and follow-up with outpatient pulmonary
#Mild Hypokalemia - RESOLVED
-Replaced, continue to monitor BMP
#Spinal Stimulator present (according to patient)
#Chronic comorbidities are stable
#hypertension
#a-fib -- continue Eliquis
#Thrombophilia History?
#lymphedema of b/l lower extremities
#chronic wounds of the bilateral lower extremities
#Bilateral Knee Replacements
#Anxiety/depression
#neuropathy
#Ambulatory Dysfunction
#insomnia
#History of GI bleed
#History of admission for septic shock secondary to E. coli bacteremia
Opioid Use
DVT Prophylaxis: continue Eliquis
Code Status: Full code
More than 30 minutes spent in discharge including
Final examination of the patient
Summarizing hospital stay
Instructions for continuing care to all relevant caregivers
Preparation of discharge records, prescriptions, and referral forms
Total time spent (in minutes): 37
Anticipated Discharge: Today
Subjective/Interval History
-
Date of Service: September 03, 2024
Patient was seen and examined. He reported his cough is much better, and he denied any shortness of breath.
Objective Data
-
Labs:
Laboratory Results
09/03/24
06:52
WBC 11.5 H
Hgb 9.2 L
Hct 29.0 L
Plt Count 388
Sodium 138
Potassium 4.3
Chloride 106
Carbon Dioxide 26
BUN 19
Creatinine 0.8
Glucose 109 H
Calcium 8.3 L
Vital Signs:
Vital Signs
Temp Pulse Resp BP Pulse Ox
98.7 F 80 18 115/69 100
09/03/24 07:43 09/03/24 07:43 09/03/24 07:43 09/03/24 07:43 09/03/24 07:43
I&O
09/02/24 09/03/24 09/04/24
06:59 06:59 06:59
Intake Total 480 / 480 1080 / 1080
Output Total 1200 / 1200 1150 / 1150
Balance -720 / -720 -70 / -70
[2024-09-03] MEDS: LEXAPRO 20 MG PO (09:56)
[2024-09-03] MEDS: MORPHINE ORAL SOLUTION 30 MG PO (09:56)
[2024-09-03] MEDS: ELIQUIS 5 MG PO (09:56)
[2024-09-03] MEDS: MUCINEX 1200 MG PO (09:56)
[2024-09-03] MEDS: NEURONTIN 800 MG PO ×2 (09:57→16:39)
[2024-09-03] MEDS: DICLOFENAC 1% TOPICAL GEL 1 GRAM TOPICAL (09:59)
[2024-09-03] MEDS: HYDROPHOR 1 APPLIC TOPICAL (10:00)
[2024-09-03] MEDS: ROXICODONE ORAL SOLUTION 10 MG PO (13:10)
[2024-09-03] MEDS: TYLENOL 650 MG PO (14:40)
--- NOTE | 2024-09-03 14:46 | W.DCSUMMARY ---
Discharge Summary
Discharge Data
Date of Admission: 08/28/24
Date of Discharge: 09/03/24
Total time spent discharging patient (in min): 37
-
Pending Results: No
Hospital Course
74-year-old male with past medical history significant for atrial fibrillation on Eliquis, hypertension, neuropathy, upper gastrointestinal bleeding, chronic chronic lower extremity edema, chronic bronchitis , anxiety depression, ambulatory
dysfunction, history of admission for septic shock secondary to E. coli bacteremia, chronic wounds to bilateral lower extremities, bilateral knee replacements, who presented to the emergency department from [facility] secondary to right foot
swelling with blisters on his right heel (acute on chronic wound). Patient possibly had right lower extremity cellulitis. Patient was started on intravenous Vancomycin and provided medication for pain. Lower extremity ultrasound with ankle-brachial
index was unremarkable. Infectious Disease was consulted. Patient's Vancomycin was switched to Cefepime. Patient was later found to have cough and shortness of breath, chest x-ray suggested pneumonia and started on some pulmonary toilet and
antibiotics. Patient's respiratory symptoms improved. Patient was okay for discharge with Cefuroxime, as per infectious disease. He was stable for discharge with outpatient follow-up.
Discharge Plan
-
Patient Disposition: [facility]NF
Discharge Diagnosis/Procedures: # Right lower extremity cellulitis associated with pressure ulcer to the heel there is a large blood blister, associated with leukocytosis
#Cough, Shortness of Breath on 09/01/24 -- suspected from pneumonia versus bronchitis -- IMPROVED
#COPD History ON RECORDS (BUT PATIENT DENIED HAVING ANY COPD HISTORY)
#History of Chronic Bronchitis?
#Former Smoker
#Mild Hypokalemia - RESOLVED
#Spinal Stimulator present (according to patient)
#Hypertension
#Atrial Fibrillation
#Thrombophilia History?
#Lymphedema of bilateral lower extremities
#Chronic wounds of the bilateral lower extremities
#Bilateral Knee Replacements
#Anxiety/depression
#Neuropathy
#Ambulatory Dysfunction
#Insomnia
#History of GI bleed
#History of admission for septic shock secondary to E. coli bacteremia
Ultrasound Peripheral Arterial Lower Extremity with REBECCA study (as per vascular surgeon's report):
'IMPRESSION: Normal lower extremity arterial noninvasive study. No evidence of bilateral lower extremity arterial insufficiency. Bilateral ankle and toe brachial indices are within normal limits. Multiphasic waveforms throughout bilateral lower
extremity arteries with no velocity elevations to suggest any significant stenoses.'
Chest X-Ray Results (as per radiologist):
FINDINGS: Mild elevation of left hemidiaphragm. Small left pleural effusion. Fluid tracks into the oblique fissure. Small amount of retrocardiac opacity. Right lung is clear. No pneumothorax. Stable mediastinal contours. Borderline heart size
Advanced osteoarthritis of right glenohumeral joint; moderate osteoarthritis of left glenohumeral joint. multiple old healed bilateral rib fractures. Electrodes of a neurostimulator device project over the lower thoracic spinal canal.
IMPRESSION:
Retrocardiac opacity, worrisome for pneumonia. This is accompanied by small left pleural effusion and mild elevation of left hemidiaphragm. Close follow-up chest films recommended for reevaluation.
Repeat Chest X-Ray Result (as per radiologist):
'FINDINGS:
There is some mild left basilar opacification without significant change. The cardiomediastinal silhouettes are within the limits of normal. There is no pneumothorax, significant pleural effusion or mediastinal shift. Distal portion of
neurostimulator wires are again seen along the posterior aspect of the lower thoracic spinal canal.
IMPRESSION:
Mild left basilar opacification again seen suggesting subsegmental atelectasis and/or pneumonia.'
Condition: Fair
Diet: As tolerated, Low Fat, Low Cholesterol and Low Sodium
Activity: With assistance and As tolerated
Driving Restrictions: No driving
Blood Work: Check CBC (with differential), CMP and Albumin within 2 to 3 days from today (today is September 03, 2024)
Other Services: PT
Activity Restrictions/Additional Instructions:
FOLLOW ASPIRATION PRECAUTIONS WITH ANY ORAL INTAKE
Wound Care Instructions
R knee: clean with saline, silicone foam change q other day and prn drainage
R heel, R medial leg and L lateral leg: clean with saline, adaptic, abd pad and kerlix, change daily and prn drainage
offload R heel with Prevalon boot
leg elevation when sitting
resume compression
Follow up at wound care center call for an appointment.
Referrals:
Anival Correia I., [Family Provider] - in two weeks
Wesley Hoskins MD [Active] - in three to four weeks (Follow-up of left basilar and retrocardiac opacities on hospital chest x-rays in August 2024. History of bronchitis. COPD?)
Additional Discharge Medication Instructions: Continue Cefuroxime 500 mg P.O. BID through 09/07/2024
Prescriptions:
New
cefuroxime axetil 500 mg tablet
500 mg PO Q12H Qty: 8 0RF
Rx Instructions:
Continue to take through and including September 07, 2024
guaifenesin 600 mg Tablet Extended Release 12hr
1,200 mg PO Q12 7 Days Qty: 28 0RF
Continued
escitalopram oxalate 20 MG tablet
20 mg PO DAILY
Eliquis 5 MG tablet
5 mg PO BID
gabapentin 800 mg tablet
800 mg PO TID
acetaminophen 325 MG tablet
650 mg PO Q4HPRN PRN (Reason: mild pain/temp>100)
trazodone 50 mg Tablet
25 mg PO HS
ondansetron HCl 4 mg Tablet
4 mg PO Q6HPRN PRN (Reason: nausea/vomiting)
ipratropium-albuterol 0.5 mg-3 mg(2.5 mg base)/3 mL Solution For Nebulization
3 ml inhalation R Q4HPRN PRN (Reason: SOB/Wheezes) Qty: 0 0RF
morphine concentrate 100 mg/5 mL (20 mg/mL) Solution
30 mg PO Q12H
oxycodone 5 mg/5 mL Solution
10 mg PO DAILY@1300
diclofenac sodium 1 % Gel
0 g TOPICAL TID
loperamide 2 mg capsule
2 mg PO Q6HPRN PRN (Reason: loose stool)
Discharge Orders:
Discharge Patient (As Directed); Ordered 09/03/24
Ordered By: Luis Deshpande
Discharge Date and Time
Discharge Date/Time: 09/03/24 17:35
Print Language: OCCITAN
[2024-09-03 14:52] VITALS: BP 134/72
--- NOTE | 2024-09-03 15:39 | CM ---
Pt for return to [facility] today.
4:30 transport, family notified
[facility]
Report: [phone]
== END 2024-09-03 17:35 | DRG 603 ==
LOC: 4 WEST ACU 09:02
PROVIDERS: ADMITTING PHYSICIAN Internal Medicine; ATTENDING PHYSICIAN Hospitalist; CONSULT PHYSICIAN Internal Medicine Infectious Disease; EMERGENCY PHYSICIAN Student in an Organized Health Care Education/Training Program; FAMILY PHYSICIAN Internal Medicine
DX: L03.115 Cellulitis of right lower limb (principal); J90 Pleural effusion, not elsewhere classified; F17.200 Nicotine dependence, unspecified, uncomplicated; I10 Essential (primary) hypertension; I48.91 Unspecified atrial fibrillation; G62.9 Polyneuropathy, unspecified; F32.A Depression, unspecified; E87.6 Hypokalemia; I89.0 Lymphedema, not elsewhere classified; L89.612 Pressure ulcer of right heel, stage 2; G47.00 Insomnia, unspecified; F11.90 Opioid use, unspecified, uncomplicated; R26.2 Difficulty in walking, not elsewhere classified; J44.9 Chronic obstructive pulmonary disease, unspecified; I87.8 Other specified disorders of veins; M19.011 Primary osteoarthritis, right shoulder; M19.012 Primary osteoarthritis, left shoulder; G89.29 Other chronic pain; Z96.653 Presence of artificial knee joint, bilateral; Z60.2 Problems related to living alone; Z79.01 Long term (current) use of anticoagulants; Z86.19 Personal history of other infectious and parasitic diseases; Z87.19 Personal history of other diseases of the digestive system; Z11.52 Encounter for screening for COVID-19; Z87.81 Personal history of (healed) traumatic fracture; Z96.82 Presence of neurostimulator
CPT/HCPCS: 71046; 80048; 80053; 83605; 84484; 85025; 85610; 87070; 87071; 87186; 87205; 87502; 87811; 93922; 93925; 94640; 94667; 96375; 99285